=== PATIENT | female | born 1955 | race African-American/Black ===

== ENCOUNTER 2018-12-10 10:54 | Emergency (ER) | payer MEDICARE, MEDICAID ==
[~2018-12-10] VITALS: Ht 162.6 cm; Wt 79.8 kg
--- NOTE | 2018-12-10 10:56 | ED Abdominal Pain ---
General Stated Complaint: NAUSEA & VOMITING History of Present Illness Date Seen by Provider: Dec 10, 2018 Time Seen by Provider: 11:00 Initial Comments 63 yo f n/v x five days, nonbloody after every po intake did have normal bm yesterday not passing much flatus s/p joshuay stacy and joya describes intermittnet epigastric pain cramping in nature, happens before she throws up and then gets a little better no chest pain symptoms moderate no sick contacts. meds k, mg, lisinopril, hctz pmh htn, hypok, hypomag Allergies and Home Medications Allergies Coded Allergies: codeine (Verified Allergy, Intermediate, itching, nausea and vomiting., ) morphine (Verified Allergy, Intermediate, itching, nausea and vomiting, ) Uncoded Allergies: SULFA (Allergy, Intermediate, itching, nausea and vomiting, 12/10/18) Patient Home Medication List Home Medication List Reviewed: Yes Review of Systems Review of Systems Constitutional: No fever Cardiovascular: Denies Chest Pain Gastrointestinal: Abdominal Pain, Constipated; Denies Diarrhea; Poor Fluid Intake All Other Systems Reviewed Negative Unless Noted: Yes Past Cnkpqle-Svowxe-Fnyyud Hx Past Med/Social Hx: Reviewed Nursing Past Med/Soc Hx Physical Exam Vital Signs Vital Signs - First Documented 12/10/18 11:14 Temp 96.9 Pulse 95 Resp 18 B/P (MAP) 143/89 (107) Pulse Ox 96 O2 Delivery Room Air Capillary Refill : Height/Weight/BMI Height: '" Weight: lbs. oz. kg; BMI Method: General Appearance: WD/WN HEENT: PERRL/EOMI, normal ENT inspection, TMs normal, pharynx normal Neck: non-tender, full range of motion, supple, normal inspection Respiratory: chest non-tender, lungs clear, normal breath sounds, no respiratory distress, no accessory muscle use Cardiovascular: normal peripheral pulses, regular rate, rhythm, no edema, no gallop, no JVD, no murmur Gastrointestinal: soft, no organomegaly, no pulsatile mass, other (mild epigastric ttp noted. no lower quadrant. no peritoneal signs) Extremities: No calf tenderness, No inflammation, No pedal edema, No slow capillary refill, No swelling, No other Pelvic: discharge Neurologic/Psychiatric: no motor/sensory deficits, alert, normal mood/affect, oriented x 3 Skin: normal color, warm/dry Progress/Results/Core Measures Results/Orders Lab Results Laboratory Tests Test 12/10/18 11:00 12/10/18 11:40 Range/Units Urine Color DK YELLOW Urine Clarity SLIGHTLY CLOUDY Urine pH 5.5 5-9 Urine Specific [place] >=1.030 1.016-1.022 Urine Protein TRACE H NEGATIVE Urine Glucose (UA) NEGATIVE NEGATIVE Urine Ketones NEGATIVE NEGATIVE Urine Nitrite NEGATIVE NEGATIVE Urine Bilirubin 1+ H NEGATIVE Urine Urobilinogen 0.2 NORMAL MG/DL Urine Leukocyte Esterase 1+ H NEGATIVE Urine RBC (Auto) NEGATIVE NEGATIVE Urine RBC 5-10 H /HPF Urine WBC >100 H /HPF Urine Squamous Epithelial Cells 5-10 /HPF Urine Crystals NONE /LPF Urine Bacteria FEW H /HPF Urine Casts NONE /LPF Urine Mucus LARGE H /LPF Urine Culture Indicated YES White Blood Count 10.3 4.3-11.0 10^3/uL Red Blood Count 5.75 4.35-5.85 10^6/uL Hemoglobin 16.1 H 11.5-16.0 G/DL Hematocrit 50 35-52 % Mean Corpuscular Volume 87 80-99 FL Mean Corpuscular Hemoglobin 28 25-34 PG Mean Corpuscular Hemoglobin Concent 32 32-36 G/DL Red Cell Distribution Width 14.6 H 10.0-14.5 % Platelet Count 288 130-400 10^3/uL Mean Platelet Volume 10.6 H 7.4-10.4 FL Neutrophils (%) (Auto) 70 42-75 % Lymphocytes (%) (Auto) 23 12-44 % Monocytes (%) (Auto) 6 0-12 % Eosinophils (%) (Auto) 1 0-10 % Basophils (%) (Auto) 0 0-10 % Neutrophils # (Auto) 7.2 1.8-7.8 X 10^3 Lymphocytes # (Auto) 2.4 1.0-4.0 X 10^3 Monocytes # (Auto) 0.6 0.0-1.0 X 10^3 Eosinophils # (Auto) 0.1 0.0-0.3 10^3/uL Basophils # (Auto) 0.0 0.0-0.1 10^3/uL Sodium Level 139 135-145 MMOL/L Potassium Level 3.7 3.6-5.0 MMOL/L Chloride Level 99 98-107 MMOL/L Carbon Dioxide Level 25 21-32 MMOL/L Anion Gap 15 H 5-14 MMOL/L Blood Urea Nitrogen 10 7-18 MG/DL Creatinine 1.11 0.60-1.30 MG/DL Estimat Glomerular Filtration Rate 60 BUN/Creatinine Ratio 9 Glucose Level 121 H 70-105 MG/DL Calcium Level 9.9 8.5-10.1 MG/DL Corrected Calcium 9.6 8.5-10.1 MG/DL Magnesium Level 2.0 1.8-2.4 MG/DL Total Bilirubin 0.5 0.1-1.0 MG/DL Aspartate Amino Transf (AST/SGOT) 25 5-34 U/L Alanine Aminotransferase (ALT/SGPT) 20 0-55 U/L Alkaline Phosphatase 121 40-136 U/L Troponin T 9 <=10 NG/L Total Protein 8.9 H 6.4-8.2 GM/DL Albumin 4.4 3.2-4.5 GM/DL Lipase 12 8-78 U/L My Orders Orders - SONNY SALDANA MD Comprehensive Metabolic Panel (12/10/18 11:18) Lipase (12/10/18 11:18) Ua Culture If Indicated (12/10/18 11:18) Saline Lock/Iv-Start (12/10/18 11:18) Cbc With Automated Diff (12/10/18 11:18) Ns Iv 1000 Ml (Sodium Chloride 0.9%) (12/10/18 11:30) Ondansetron Injection (Zofran Injectio (12/10/18 11:30) Fentanyl Injection (Sublimaze Injection (12/10/18 11:18) Ekg Tracing (12/10/18 11:18) Magnesium (12/10/18 11:23) Troponin T (12/10/18 12:04) Ct Abdomen/Pelvis W (12/10/18 12:34) Urine Culture (12/10/18 11:00) Ceftriaxone For Iv Use (Rocephin For I (12/10/18 13:00) Iohexol Injection (Omnipaque 350 Mg/Ml 1 (12/10/18 13:00) Received Contrast (Hold Metformin- Contr (12/10/18 13:00) Sodium Chloride Flush (Catheter Flush Sy (12/10/18 13:00) Ns (Ivpb) (Sodium Chloride 0.9% Ivpb Bag (12/10/18 13:00) Medications Given in ED Current Medications Medications Dose Ordered Sig/Kalyn Route Start Time Stop Time Status Last Admin Dose Admin Ceftriaxone Sodium 1000 mg/ Sterile Water 10 ml @ 200 mls/hr ONCE ONCE IV 12/10/18 13:00 12/10/18 13:29 DC 12/10/18 13:40 200 MLS/HR Iohexol 100 ml ONCE ONCE IV 12/10/18 13:00 12/10/18 13:28 DC 12/10/18 13:10 100 ML Ondansetron HCl 4 mg ONCE ONCE IVP 12/10/18 11:30 12/10/18 11:31 DC 12/10/18 11:49 4 MG Sodium Chloride 10 ml NEEDED PRN IV 12/10/18 13:00 12/10/18 13:10 10 ML Sodium Chloride 50 ml ONCE ONCE IV 12/10/18 13:00 12/10/18 13:29 DC 12/10/18 13:10 50 ML Vital Signs/I&O 12/10/18 11:14 Temp 96.9 Pulse 95 Resp 18 B/P (MAP) 143/89 (107) Pulse Ox 96 O2 Delivery Room Air Progress Progress Note : Progress Note 63 yo f s/p appy, stacy, hyst, p/w 4-5 days of vomiting and crampy abdo pain. no diarrhea. mild to moderate ttp. could be gastritis but given surgical hx and age, will get ct a/p r/o sbo ekg/trop neg for ischemia, labs otherwise look pretty good so far. u/a shows uti, ctx and keflex pt better after symptomatic er tx appears approp for outpt mgmt advised f/u pmd for lymph node findings Initial ECG Impression Date: Dec 10, 2018 Initial ECG Impression Time: 11:55 Initial ECG Rhythm: Normal Sinus Initial ECG Intervals: Normal Initial ECG Impression: Nonspecific Changes Departure Impression Primary Impression: Urinary tract infection Disposition: 01 HOME, SELF-CARE Condition: Stable Departure-Patient Inst. Patient Instructions: Urinary Tract Infection, Adult (DC) Add. Discharge Instructions: A lymph node adjacent to the pancreatic neck measures approximately 2.4 x 1.3 cm. Portacaval node measures 1.4 x 3.2 cm. There are additional smaller lymph nodes present in this region and this is indeterminate. the above is the ct scan. please see primary doctor for consideration of pet scan and/or repeat ct scan in 6 weeks. Scripts Ondansetron (Ondansetron Odt) 4 Mg Tab.rapdis 4 MG PO QID PRN for NAUSEA/VOMITING, #10 TAB Prov: SONNY SALDANA MD 12/10/18 Cephalexin (Cephalexin) 500 Mg Tablet 500 MG PO QID, #40 TAB 0 Refills Prov: SONNY SALDANA MD 12/10/18 SONNY SALDANA MD Dec 10, 2018 10:56
[2018-12-10] MEDS ORDERED: fentaNYL INJECTION 100 MCG/2 ML AMP IVP STA (11:18)
[2018-12-10] MEDS ORDERED: NS IV 1000 ML 1,000 ML IV SCH (11:30)
[2018-12-10] MEDS ORDERED: ONDANSETRON 4 MG/2 ML (SDV) Z0FRAN IVP ONE (11:30)
[2018-12-10 12:29] LABS: POTASSIUM 3.7 MMOL/L (3.6-5.0)
[2018-12-10 12:30] LABS: ALBUMIN 4.4 GM/DL (3.2-4.5); BILIRUBIN,TOTAL 0.5 MG/DL (0.1-1.0); CALCIUM 9.9 MG/DL (8.5-10.1); CREATININE SERUM 1.11 MG/DL (0.60-1.30); TOTAL PROTEIN 8.9 GM/DL (6.4-8.2)
[2018-12-10 12:32] LABS: HEMATOCRIT 50 % (35-52); HEMOGLOBIN 16.1 G/DL (11.5-16.0); LYMPHOCYTES % (AUTO) 23 % (12-44); MEAN CORPUSCULAR HEMOGLOBIN 28 PG (25-34); MEAN CORPUSCULAR HGB CONC 32 G/DL (32-36); MEAN CORPUSCULAR VOLUME 87 FL (80-99); MEAN PLATELET VOLUME 10.6 FL (7.4-10.4); MONOCYTES % (AUTO) 6 % (0-12); NEUTROPHILS % (AUTO) 70 % (42-75); PLATELET COUNT 288 10^3/uL (130-400); RED CELL DISTRIBUTION WIDTH 14.6 % (10.0-14.5); WHITE BLOOD COUNT 10.3 10^3/uL (4.3-11.0)
[2018-12-10 12:33] LABS: BASOPHILS % (AUTO) 0 % (0-10); EOSINOPHILS # (AUTO) 0.1 10^3/uL (0.0-0.3); EOSINOPHILS % (AUTO) 1 % (0-10); LYMPHOCYTES # (AUTO) 2.4 X 10^3 (1.0-4.0); MONOCYTES # (AUTO) 0.6 X 10^3 (0.0-1.0); NEUTROPHILS # (AUTO) 7.2 X 10^3 (1.8-7.8)
[2018-12-10 12:34] LABS: CLARITY,URINE SLIGHTLY CLOUDY; COLOR,URINE DK YELLOW; GLUCOSE, URINE (UA) NEGATIVE (NEGATIVE); PH,URINE 5.5 (5-9); PROTEIN,URINE TRACE (NEGATIVE)
[2018-12-10 12:35] LABS: BACTERIA,URINE FEW /HPF; BILIRUBIN,URINE 1+ (NEGATIVE); KETONES,URINE NEGATIVE (NEGATIVE); LEUKOCYTE ESTERASE ,URINE 1+ (NEGATIVE); NITRITE,URINE NEGATIVE (NEGATIVE); UROBILINOGEN,URINE 0.2 MG/DL (NORMAL); WBC,URINE >100 /HPF
[2018-12-10] MEDS ORDERED: CATHETER FLUSH 10 ML SYR IV PRN (13:00)
[2018-12-10] MEDS ORDERED: NS 50 ML (IVPB) BAG IV ONE (13:00)
[2018-12-10] MEDS ORDERED: IOHEXOL 350 MG/ML 100 ML (OMNIPAQUE 350) VIAL IV ONE (13:00)
[2018-12-10] MEDS ORDERED: cefTRIAXone FOR IV USE 1,000 MG in WATER (STERILE) FOR INJECTION 10 ML IV ONE (13:00)
[2018-12-10] MEDS ORDERED: HOLD METFORMIN - RECEIVED CONTRAST 20 ML VIAL IV SCH (13:00)
--- NOTE | 2018-12-10 13:42 | Diagnostic Imaging Report ---
PROCEDURE: CT abdomen and pelvis with contrast. TECHNIQUE: Multiple contiguous axial images were obtained through the abdomen and pelvis after administration of intravenous contrast. Auto Exposure Controls were utilized during the CT exam to meet ALARA standards for radiation dose reduction. INDICATION: Transabdominal pain for four days. COMPARISON: No prior studies are available for comparison. FINDINGS: The lung bases are clear. The liver demonstrates a mild generalized low density consistent with hepatic steatosis. No discrete liver mass is identified. The gallbladder is surgically absent. No biliary ductal dilatation is seen. The pancreas and spleen are unremarkable. No adrenal mass is detected. Kidneys contain tiny cortical low densities, too small to characterize but most likely cysts. The aorta does show a moderate amount of atherosclerotic changes. In addition, there is some ectasia to the aorta but no aneurysm is seen. No central retroperitoneal or mesenteric lymphadenopathy is identified. However, there do appear to be some prominent lymph nodes in the region of the nate hepatis and portacaval region. A lymph node adjacent to the pancreatic neck measures approximately 2.4 x 1.3 cm. Portacaval node measures 1.4 x 3.2 cm. There are additional smaller lymph nodes present in this region and this is indeterminate. The small and large bowel loops are normal caliber. No obstruction is seen. There is no ascites. No inflammatory process is detected. The bladder is unremarkable. Uterus appears to be surgically absent. No pelvic lymphadenopathy is identified. IMPRESSION: 1. Mild hepatic steatosis. 2. There appears to be nate hepatis and portacaval lymphadenopathy, etiology indeterminate. No other significant abnormality is seen. PET scan may be useful for further evaluation to evaluate for hypermetabolism. Dictated by: Dictated on workstation # [id number]
[2018-12-10] MEDS ORDERED: ONDA4TAB11 PO (14:47)
[2018-12-10] MEDS ORDERED: CEPH500T PO (14:47)
[2018-12-10 15:03] VITALS: BP 143/76
== END 2018-12-10 15:09 | disposition home or self-care (01) ==
LOC: ER FS 10:57
DX: N39.0 Urinary tract infection, site not specified (principal); Z88.5 Allergy status to narcotic agent; Z88.2 Allergy status to sulfonamides
CPT/HCPCS: 36415; 74177; 80053; 81000; 83690; 83735; 84484; 85025; 87088

== ENCOUNTER 2019-01-01 10:44 | Emergency (ER) | payer MEDICARE, MEDICAID ==
[~2019-01-01] VITALS: Ht 162.6 cm; Wt 81.6 kg
[~2019-01-01 10:44] MED LIST: CEPH500T PO; ONDA4TAB11 PO
--- OUTSIDE RECORDS SUMMARY | 2019-01-01 11:14 | XMS REPORT ---
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 January, 0 250375908 Problem Essential hypertension I10 Active 23177894 Problem Adhesive capsulitis of right shoulder M75.01 Sep, 0 [id number] Problem Intractable migraine without aura and without status migrainosus G43.019 Active 689764926 Problem Pure hypercholesterolemia E78.00 Active 323124586 Problem Type 2 diabetes mellitus without complication, without long-term current use of insulin E11.9 Active 951394543 ALLERGIES No Information ENCOUNTERS Encounter Location Date Diagnosis [address] [address] Nov, Acute cystitis without hematuria N30.[address] [address] Nov, [facility] [address] [place] [address] Nov, Nausea & vomiting R11.[address] [address] Nov, [facility] [place] [address] [facility] [id number] [address] Oct, Essential hypertension I10 [facility] [address] [address] 15 Oct, 2018 Essential hypertension I10 and Type 2 diabetes mellitus without complication, without long-term current use of insulin E11.[address] [address] 14 Oct, 2018 Impingement syndrome of right shoulder M75.41 ; Essential hypertension I10 ; Pure hypercholesterolemia E78.00 ; Type 2 diabetes mellitus without complication, without long-term current use of insulin E11.9 and Chronic hepatitis C without hepatic coma B18.2 [place] [address] [address] Oct, 2018 [facility] [address] [place] [address] 04 Oct, 2018 Intractable migraine without aura and without status migrainosus G43.019 [place] [address] [address] Sep, [facility], [place] [address] [address] Aug, [facility], [place] [address] [place] [id number] [place] [address] Aug, [facility] [place] [address] [place] [id number] [place] [address] Aug, [facility], [place] [address] [address] Jul, IMMUNIZATIONS No Known Immunizations SOCIAL HISTORY Never Assessed REASON FOR VISIT Medication refill PLAN OF CARE VITAL SIGNS MEDICATIONS Medication Instructions Dosage Frequency Start Date End Date Duration Status Fluticasone Propionate 50 MCG/ACT Nasally Once a day 1 spray in each nostril 24h Nov, 30 day(s) Active RESULTS No Results PROCEDURES No Known procedures INSTRUCTIONS MEDICATIONS ADMINISTERED No Known Medications MEDICAL (GENERAL) HISTORY Type Description Date Medical History Hypokalemia Medical History Hypomagnesemia Medical History Hypertension Medical History Hepatitis C Medical History Type 2 diabetes mellitus Surgical History Hysterectomy Surgical History Left Arm Surgery Surgical History Lap Dawn Surgical History Lap Appy Surgical History Bilat Knee Surgery Hospitalization History surgeries
--- OUTSIDE RECORDS SUMMARY | 2019-01-01 11:14 | XMS REPORT ---
Author Author ALFREDO LEON Organization [facility] Address [address] [place] [address] Care Team Providers Care Group Supervisor Yard Name Role Phone ALFREDO LEON Unavailable PROBLEMS Type Condition ICD9-CM Code DME87-OG Code Onset Dates Condition Status SNOMED Code Problem Chronic hepatitis C without hepatic coma B18.2 Active 329671377 Problem Essential hypertension I10 Active 13422539 Problem Intractable migraine without aura and without status migrainosus G43.019 Active 425927883 Problem Pure hypercholesterolemia E78.00 Active 709710986 Problem Type 2 diabetes mellitus without complication, without long-term current use of insulin E11.9 Active 081050774 ALLERGIES Substance Reaction Event Type Date Status Morphine Sulfate itching Drug Allergy Oct, Active Codeine Phosphate itching Drug Allergy Oct, Active ENCOUNTERS Encounter Location Date Diagnosis [address] [address] Oct, Essential hypertension I10 and Type 2 diabetes mellitus without complication, without long-term current use of insulin E11.[address] [address] Oct, Impingement syndrome of right shoulder M75.41 ; Essential hypertension I10 ; Pure hypercholesterolemia E78.00 ; Type 2 diabetes mellitus without complication, without long-term current use of insulin E11.9 and Chronic hepatitis C without hepatic coma B18.2 [facility] [address] [facility] [place] [address] Oct, Intractable migraine without aura and without status migrainosus G43.019 IMMUNIZATIONS No Known Immunizations SOCIAL HISTORY Never Assessed REASON FOR VISIT Pain management (chronic) - Right Shoulder Pain (x3-4Months) PLAN OF CARE Activity Details Follow Up 3 Months Reason:Follow up with lab prior VITAL SIGNS Height 5ft 4in in 2018-11-01 Weight 197.2lb lbs 2018-11-01 BMI 33.85 kg/m2 2018-11-01 Blood pressure systolic 156 mmHg 2018-11-01 Blood pressure diastolic 100 mmHg 2018-11-01 MEDICATIONS Medication Instructions Dosage Frequency Start Date End Date Duration Status Naproxen 500 MG Orally every 12 hrs 1 tablet with food or milk as needed 12h Active Chlorthalidone 25 MG Orally Once a day 1 tablet in the morning with food 24h 30 day(s) Active Klor-Con M20 20 MEQ Orally Once a day 1 tablet with food 24h 30 day(s ) Active Albuterol Sulfate HFA 108 (90 Base) MCG/ACT Inhalation every 6 hrs 2 puffs as needed 6h Active Lisinopril 20 MG Orally Once a day 1 tablet 24h Oct, 30 days Active Effexor XR 150 MG Orally Once a day 1 capsule with food 24h 30 day(s ) Active Plavix 75 MG Orally Once a day 1 tablet 24h 30 day(s) Active Fenofibrate 160 MG Orally Once a day 1 tablet with food 24h 30 day(s ) Active PredniSONE 10 MG Orally Once a day 1 tablet 24h Oct, 6 days Active Magnesium Oxide 400 MG Orally Once a day 1 tablet as needed 24h 30 day(s) Active RESULTS No Results PROCEDURES Procedure Date Ordered Result Body Site [facility] VISIT NEW PATIENT Nov 01, 2018 INSTRUCTIONS MEDICATIONS ADMINISTERED No Known Medications MEDICAL (GENERAL) HISTORY Type Description Date Medical History Hypokalemia Medical History Hypomagnesemia Medical History Hypertension Medical History Hepatitis C Medical History Type 2 diabetes mellitus Surgical History Hysterectomy Surgical History Left Arm Surgery Surgical History Lap Dawn Surgical History Lap Appy Surgical History Bilat Knee Surgery Hospitalization History surgeries
[2019-01-01] MEDS ORDERED: FAMOTIDINE 20MG/2ML IV (PEPCID) IVP ONE (12:30)
[2019-01-01] MEDS ORDERED: ONDANSETRON 4 MG/2 ML (SDV) Z0FRAN IVP ONE (12:30)
[2019-01-01] MEDS ORDERED: NS IV 1000 ML 1,000 ML IV SCH (12:30)
[2019-01-01] MEDS ORDERED: fentaNYL INJECTION 100 MCG/2 ML AMP IVP ONE (12:30)
--- NOTE | 2019-01-01 13:25 | ED Abdominal Pain ---
General Chief Complaint: Abdominal/GI Problems Stated Complaint: VOMITING Nursing Triage Note: Has been vomiting for the past 4 days. No diarrhea but is having some abdominal pain rated at 4/10. States she has been having intermittent nausea/vomiting for the past month and was in the ED a month ago for the same thing. Sepsis Screen: No Definite Risk Source of Information: Patient History of Present Illness Date Seen by Provider: Jan 01, 2019 Time Seen by Provider: 12:00 Initial Comments Patient is a 63-year-old [place]eg[place]e female with history of chronic abdominal pain and nausea presents with exacerbation of chronic abdominal pain. Patient reports diffuse midepigastric pain, tenderness as 4 days with nausea and decreased appetite. Denies diarrhea. Pain is described as crampy and colicky in worse after eating. No fever chills or sweats. No bloody or coffee-ground emesis. No constipation or diarrhea. Denies bloody stools or dark tarry stools. Patient reports minimal relief with home medications. Timing/Duration: 3-4 Days Severity/Quality: Mild Location: Epigastric Radiation: No Radiation Activities at Onset: None Modifying Factors: Improves With Vomiting Associated Symptoms: Denies Symptoms Allergies and Home Medications Allergies Coded Allergies: codeine (Verified Allergy, Intermediate, itching, nausea and vomiting., ) morphine (Verified Allergy, Intermediate, itching, nausea and vomiting, ) Sulfa (Sulfonamide Antibiotics) (Verified Allergy, Unknown, 01/01/19) Home Medications Cephalexin 500 Mg Tablet, 500 MG PO QID Prescribed by: SONNY SALDANA on 12/10/18 1447 Ondansetron 4 Mg Tab.rapdis, 4 MG PO QID PRN for NAUSEA/VOMITING Prescribed by: SONNY SALDANA on 12/10/18 1447 Patient Home Medication List Home Medication List Reviewed: Yes Review of Systems Review of Systems Constitutional: see HPI EENTM: See HPI Respiratory: No Symptoms Reported, See HPI Cardiovascular: No Symptoms Reported Gastrointestinal: See HPI Genitourinary: No Symptoms Reported Musculoskeletal: no symptoms reported Skin: no symptoms reported Psychiatric/Neurological: No Symptoms Reported Past Ywvvxdb-Gnsgkf-Txpsnq Hx Patient Social History Type Used: Cigarettes 2nd Hand Smoke Exposure: Yes Recent Foreign Travel: No Contact w/Someone Who Travel: No Recent Infectious Disease Expo: No Recent Hopitalizations: No Seasonal Allergies Seasonal Allergies: No Past Medical History Surgeries: Yes (knee arth bilat, right shoulder) Appendectomy, Gallbladder, Hysterectomy Respiratory: No Cardiac: Yes (low potassium, low magnesium) Hypertension Genitourinary: No Gastrointestinal: No Musculoskeletal: No Endocrine: No HEENT: No Cancer: No Psychosocial: No Integumentary: No Blood Disorders: No Physical Exam Vital Signs Vital Signs - First Documented 01/01/19 11:10 Temp 97.9 Pulse 93 Resp 20 B/P (MAP) 109/59 (76) Pulse Ox 93 Capillary Refill : Less Than 3 Seconds Height/Weight/BMI Height: 5'4.00" Weight: 180lbs. oz. 81.886637uf; BMI Method:Stated General Appearance: WD/WN, no apparent distress HEENT: PERRL/EOMI, normal ENT inspection, pharynx normal Neck: full range of motion, supple Respiratory: chest non-tender, lungs clear Cardiovascular: normal peripheral pulses, regular rate, rhythm Gastrointestinal: normal bowel sounds, soft, other (midepigastric pain, tenderness.) Extremities: normal range of motion, non-tender Back: normal inspection Skin: normal color Focused Exam Sepsis Stage: Ruled Out Progress/Results/Core Measures Results/Orders Lab Results Laboratory Tests Test 01/01/19 12:01 01/01/19 12:47 Range/Units White Blood Count 11.2 H 4.3-11.0 10^3/uL Red Blood Count 5.33 4.35-5.85 10^6/uL Hemoglobin 15.5 11.5-16.0 G/DL Hematocrit 45 35-52 % Mean Corpuscular Volume 85 80-99 FL Mean Corpuscular Hemoglobin 29 25-34 PG Mean Corpuscular Hemoglobin Concent 34 32-36 G/DL Red Cell Distribution Width 14.7 H 10.0-14.5 % Platelet Count 317 130-400 10^3/uL Mean Platelet Volume 11.3 H 7.4-10.4 FL Neutrophils (%) (Auto) 71 42-75 % Lymphocytes (%) (Auto) 20 12-44 % Monocytes (%) (Auto) 8 0-12 % Eosinophils (%) (Auto) 1 0-10 % Basophils (%) (Auto) 0 0-10 % Neutrophils # (Auto) 7.8 1.8-7.8 X 10^3 Lymphocytes # (Auto) 2.3 1.0-4.0 X 10^3 Monocytes # (Auto) 0.9 0.0-1.0 X 10^3 Eosinophils # (Auto) 0.1 0.0-0.3 10^3/uL Basophils # (Auto) 0.0 0.0-0.1 10^3/uL Sodium Level 140 135-145 MMOL/L Potassium Level 2.7 L 3.6-5.0 MMOL/L Chloride Level 95 L 98-107 MMOL/L Carbon Dioxide Level 25 21-32 MMOL/L Anion Gap 20 H 5-14 MMOL/L Blood Urea Nitrogen 15 7-18 MG/DL Creatinine 0.94 0.60-1.30 MG/DL Estimat Glomerular Filtration Rate > 60 BUN/Creatinine Ratio 16 Glucose Level 129 H 70-105 MG/DL Calcium Level 9.7 8.5-10.1 MG/DL Corrected Calcium 9.6 8.5-10.1 MG/DL Total Bilirubin 0.5 0.1-1.0 MG/DL Aspartate Amino Transf (AST/SGOT) 29 5-34 U/L Alanine Aminotransferase (ALT/SGPT) 19 0-55 U/L Alkaline Phosphatase 112 40-136 U/L Troponin T 10 <=10 NG/L Total Protein 8.5 H 6.4-8.2 GM/DL Albumin 4.1 3.2-4.5 GM/DL Lipase 12 8-78 U/L Urine Color KYLE H Urine Clarity CLEAR Urine pH 6.0 5-9 Urine Specific [place] 1.025 H 1.016-1.022 Urine Protein 1+ H NEGATIVE Urine Glucose (UA) NEGATIVE NEGATIVE Urine Ketones TRACE H NEGATIVE Urine Nitrite NEGATIVE NEGATIVE Urine Bilirubin 2+ H NEGATIVE Urine Urobilinogen 1.0 NORMAL MG/DL Urine Leukocyte Esterase NEGATIVE NEGATIVE Urine RBC (Auto) NEGATIVE NEGATIVE Urine RBC NONE /HPF Urine WBC 2-5 /HPF Urine Squamous Epithelial Cells 2-5 /HPF Urine Crystals NONE /LPF Urine Bacteria NEGATIVE /HPF Urine Casts PRESENT /LPF Urine Hyaline Casts 10-25 H /LPF Urine Granular Casts /LPF Urine Coarse Granular Casts RARE H /LPF Urine White Blood Cell Casts RARE H /LPF Urine Mucus LARGE H /LPF Urine Culture Indicated NO My Orders Orders - PAUL NATHAN DO Cbc With Automated Diff (01/01/19 12:25) Comprehensive Metabolic Panel (01/01/19 12:25) Lipase (01/01/19 12:25) Troponin T (01/01/19 12:25) Ua Culture If Indicated (01/01/19 12:25) Ondansetron Injection (Zofran Injectio (01/01/19 12:30) Ns Iv 1000 Ml (Sodium Chloride 0.9%) (01/01/19 12:30) Fentanyl Injection (Sublimaze Injection (01/01/19 12:30) Famotidine Injection (Pepcid Injection) (01/01/19 12:30) Potassium Chloride (Tablet) (K Dur Table (01/01/19 14:15) Medications Given in ED Current Medications Medications Dose Ordered Sig/Kalyn Route Start Time Stop Time Status Last Admin Dose Admin Famotidine 20 mg ONCE ONCE IVP 01/01/19 12:30 01/01/19 12:31 DC 01/01/19 12:37 20 MG Fentanyl Citrate 50 mcg ONCE ONCE IVP 01/01/19 12:30 01/01/19 12:31 DC 01/01/19 12:38 50 MCG Ondansetron HCl 4 mg ONCE ONCE IVP 01/01/19 12:30 01/01/19 12:31 DC 01/01/19 12:37 4 MG Vital Signs/I&O 01/01/19 11:10 Temp 97.9 Pulse 93 Resp 20 B/P (MAP) 109/59 (76) Pulse Ox 93 Blood Pressure Mean: 76 Departure Communication (Admissions) Symptoms significantly improved with treatment. Potassium replaced. Patient requesting to eat and go home. Recommended continued supportive care. Pseudomonal Risk: No known risk Impression Primary Impression: Nausea and vomiting Additional Impressions: Abdominal pain Hypokalemia Disposition: HOME, SELF-CARE Condition: Improved Departure-Patient Inst. Referrals: ALFREDO LEON MD (PCP/Family) Primary Care Physician Patient Instructions: Hypokalemia, Acute Abdomen (Belly Pain), Adult (DC), Nausea and Vomiting, Adult (DC) Add. Discharge Instructions: Please take newly prescribed nausea medication antiacids and potassium as directed. Follow-up with your PCP in 3-5 days for reevaluation All discharge instructions reviewed with patient and/or family. Voiced understanding. Scripts Promethazine HCl (Promethazine Tablet) 25 Mg Tablet 25 MG PO Q6H PRN for NAUSEA/VOMITING, #14 TAB Prov: PAUL NATHAN DO 01/01/19 Potassium Chloride (Potassium Chloride) 20 Meq Tablet.er 20 MEQ PO BID, #14 TAB Prov: PAUL NATHAN DO 01/01/19 Famotidine (Pepcid) 20 Mg Tablet 20 MG PO BID, #30 TAB Prov: PAUL NATHAN DO 01/01/19 PAUL NATHAN DO Jan 01, 2019 13:25
[2019-01-01 13:29] LABS: ALANINE AMINOTRANSFERASE 19 U/L (0-55); ALBUMIN 4.1 GM/DL (3.2-4.5); ALKALINE PHOSPHATASE 112 U/L (40-136); BILIRUBIN,TOTAL 0.5 MG/DL (0.1-1.0); BUN/CREATININE RATIO 16; CALCIUM 9.7 MG/DL (8.5-10.1); CARBON DIOXIDE 25 MMOL/L (21-32); CHLORIDE 95 MMOL/L (98-107); CREATININE SERUM 0.94 MG/DL (0.60-1.30); GFR ESTIMATED > 60; GLUCOSE 129 MG/DL (70-105); LIPASE 12 U/L (8-78); POTASSIUM 2.7 MMOL/L (3.6-5.0); SODIUM 140 MMOL/L (135-145); TOTAL PROTEIN 8.5 GM/DL (6.4-8.2)
[2019-01-01 13:37] LABS: CLARITY,URINE CLEAR; COLOR,URINE AMBER
[2019-01-01 13:38] LABS: BILIRUBIN,URINE 2+ (NEGATIVE); GLUCOSE, URINE (UA) NEGATIVE (NEGATIVE); KETONES,URINE TRACE (NEGATIVE); LEUKOCYTE ESTERASE ,URINE NEGATIVE (NEGATIVE); NITRITE,URINE NEGATIVE (NEGATIVE); PROTEIN,URINE 1+ (NEGATIVE)
[2019-01-01 13:39] LABS: BACTERIA,URINE NEGATIVE /HPF
[2019-01-01 13:40] LABS: WHITE BLOOD CELL CASTS, URINE RARE /LPF
[2019-01-01 13:42] LABS: WHITE BLOOD COUNT 11.2 10^3/uL (4.3-11.0)
[2019-01-01 13:43] LABS: BASOPHILS % (AUTO) 0 % (0-10); EOSINOPHILS # (AUTO) 0.1 10^3/uL (0.0-0.3); EOSINOPHILS % (AUTO) 1 % (0-10); HEMATOCRIT 45 % (35-52); HEMOGLOBIN 15.5 G/DL (11.5-16.0); LYMPHOCYTES # (AUTO) 2.3 X 10^3 (1.0-4.0); LYMPHOCYTES % (AUTO) 20 % (12-44); MEAN CORPUSCULAR HEMOGLOBIN 29 PG (25-34); MEAN CORPUSCULAR HGB CONC 34 G/DL (32-36); MEAN CORPUSCULAR VOLUME 85 FL (80-99); MEAN PLATELET VOLUME 11.3 FL (7.4-10.4); MONOCYTES # (AUTO) 0.9 X 10^3 (0.0-1.0); MONOCYTES % (AUTO) 8 % (0-12); NEUTROPHILS # (AUTO) 7.8 X 10^3 (1.8-7.8); NEUTROPHILS % (AUTO) 71 % (42-75); PLATELET COUNT 317 10^3/uL (130-400); RED CELL DISTRIBUTION WIDTH 14.7 % (10.0-14.5)
[2019-01-01] MEDS ORDERED: PROM25TA14 PO (14:08)
[2019-01-01] MEDS ORDERED: POTA-51 PO (14:08)
[2019-01-01] MEDS ORDERED: FAMO-119 PO (14:08)
[2019-01-01] MEDS ORDERED: KCL 20 MEQ TAB (K-DUR) PO ONE (14:15)
[2019-01-01 14:21] VITALS: BP 119/74
== END 2019-01-01 14:22 | disposition home or self-care (01) ==
LOC: EDUNIT# 10:44 → ER FS 10:46
DX: R11.2 Nausea with vomiting, unspecified (principal); E87.6 Hypokalemia; R10.13 Epigastric pain; I10 Essential (primary) hypertension; Z88.5 Allergy status to narcotic agent; Z88.2 Allergy status to sulfonamides; Z77.22 Contact with and (suspected) exposure to environmental tobacco smoke (acute) (chronic); Z90.49 Acquired absence of other specified parts of digestive tract; Z90.710 Acquired absence of both cervix and uterus
CPT/HCPCS: 36415; 80053; 81000; 83690; 84484; 85025

== ENCOUNTER 2019-01-13 13:35 | Emergency (ER) | payer MEDICARE, MEDICAID ==
[~2019-01-13] VITALS: Ht 162.6 cm; Wt 81.6 kg
[~2019-01-13 13:35] MED LIST changes: +FAMO-119 PO; +POTA-51 PO; +PROM25TA14 PO
--- OUTSIDE RECORDS SUMMARY | 2019-01-13 13:40 | XMS REPORT | Continuity of Care Document ---
Author Organization Unknown Address Unknown Allergies There is no data. Medications There is no data. Problems There is no data. Procedures There is no data. Results Test Result Range [facility] - 01/10/19 11:25 GLUCOSE 114 mg/dL 65-139 UREA NITROGEN (BUN) 12 mg/dL 7-25 CREATININE 0.87 mg/dL 0.50-0.99 eGFR NON-AFR. SUDANESE 70 mL/min/1.73m2 > OR=60 eGFR 82 mL/min/1.73m2 > OR=60 BUN/CREATININE RATIO NOT APPLICABLE (calc) 6-22 SODIUM 140 mmol/L 135-146 POTASSIUM 4.1 mmol/L 3.5-5.3 CHLORIDE 103 mmol/L 98-110 CARBON DIOXIDE 23 mmol/L 20-32 CALCIUM 9.9 mg/dL 8.6-10.4 PROTEIN, TOTAL 8.3 g/dL 6.1-8.1 ALBUMIN 4.0 g/dL 3.6-5.1 GLOBULIN 4.3 g/dL (calc) 1.9-3.7 ALBUMIN/GLOBULIN RATIO 0.9 (calc) 1.0-2.5 BILIRUBIN, TOTAL 0.4 mg/dL 0.2-1.2 ALKALINE PHOSPHATASE 121 U/L 33-130 AST 32 U/L 10-35 ALT 26 U/L 6-29 Encounters ACCT No. Visit Date/Time Discharge Status Pt. Type Provider Facility Loc./Unit Complaint [id number] 01/10/2019 10:45:00 Document Registration [id number] 01/10/2019 10:45:00 [facility]
[2019-01-13 14:37] LABS: CLARITY,URINE SLIGHTLY CLOUDY; COLOR,URINE YELLOW; GLUCOSE, URINE (UA) NEGATIVE (NEGATIVE); KETONES,URINE NEGATIVE (NEGATIVE); NITRITE,URINE NEGATIVE (NEGATIVE); PH,URINE 6 (5-9); PROTEIN,URINE 2+ (NEGATIVE)
[2019-01-13 14:38] LABS: AMPHETAMINE SCREEN, URINE NEGATIVE (NEGATIVE); BACTERIA,URINE MODERATE /HPF; BARBITURATE SCREEN URINE NEGATIVE (NEGATIVE); BENZODIAZEPINES SCREEN URINE NEGATIVE (NEGATIVE); BILIRUBIN,URINE 1+ (NEGATIVE); CANNABINOID SCREEN, URINE NEGATIVE (NEGATIVE); COCAINE SCREEN URINE NEGATIVE (NEGATIVE); LEUKOCYTE ESTERASE ,URINE 2+ (NEGATIVE); METHADONE STAT NEGATIVE (NEGATIVE); METHAMPHETAMINE SCREEN URINE S NEGATIVE (NEGATIVE); OPIATE SCREEN URINE NEGATIVE (NEGATIVE); OXYCODONE STAT NEGATIVE (NEGATIVE); PROPOXYPHENE STAT NEGATIVE (NEGATIVE); RBC,URINE RARE /HPF; RENAL EPITHELIAL CELLS,URINE 0-2 /HPF; SQUAMOUS EPITHELIAL CELL,UR 0-2 /HPF; TRICYCLIC ANTIDEPRESSANTS SCRE NEGATIVE (NEGATIVE); UROBILINOGEN,URINE 1 MG/DL (NORMAL); WBC,URINE 25-50 /HPF
[2019-01-13 15:07] LABS: WHITE BLOOD COUNT 10.7 10^3/uL (4.3-11.0)
[2019-01-13 15:08] LABS: BASOPHILS % (AUTO) 0 % (0-10); EOSINOPHILS # (AUTO) 0.1 10^3/uL (0.0-0.3); EOSINOPHILS % (AUTO) 1 % (0-10); HEMATOCRIT 49 % (35-52); HEMOGLOBIN 16.2 G/DL (11.5-16.0); LYMPHOCYTES # (AUTO) 2.1 X 10^3 (1.0-4.0); LYMPHOCYTES % (AUTO) 20 % (12-44); MEAN CORPUSCULAR HEMOGLOBIN 28 PG (25-34); MEAN CORPUSCULAR HGB CONC 33 G/DL (32-36); MEAN CORPUSCULAR VOLUME 85 FL (80-99); MEAN PLATELET VOLUME 10.6 FL (7.4-10.4); MONOCYTES # (AUTO) 0.7 X 10^3 (0.0-1.0); MONOCYTES % (AUTO) 6 % (0-12); NEUTROPHILS # (AUTO) 7.8 X 10^3 (1.8-7.8); NEUTROPHILS % (AUTO) 73 % (42-75); PLATELET COUNT 224 10^3/uL (130-400); RED CELL DISTRIBUTION WIDTH 14.7 % (10.0-14.5)
[2019-01-13 15:31] LABS: BUN/CREATININE RATIO 13; CALCIUM 9.6 MG/DL (8.5-10.1); CARBON DIOXIDE 20 MMOL/L (21-32); CHLORIDE 102 MMOL/L (98-107); CREATININE SERUM 0.84 MG/DL (0.60-1.30); GFR ESTIMATED > 60; GLUCOSE 121 MG/DL (70-105); POTASSIUM 3.1 MMOL/L (3.6-5.0); SODIUM 141 MMOL/L (135-145)
[2019-01-13 15:32] LABS: ALANINE AMINOTRANSFERASE 27 U/L (0-55); ALKALINE PHOSPHATASE 137 U/L (40-136); BILIRUBIN,TOTAL 0.5 MG/DL (0.1-1.0); LIPASE 12 U/L (8-78); TOTAL PROTEIN 8.4 GM/DL (6.4-8.2)
--- NOTE | 2019-01-13 15:41 | ED Abdominal Pain ---
General Chief Complaint: Abdominal/GI Problems Stated Complaint: VOMITING,STOMACH PAIN Source of Information: Patient, Old Records, RN Notes Reviewed Exam Limitations: No Limitations History of Present Illness Date Seen by Provider: Jan 13, 2019 Time Seen by Provider: 14:20 Initial Comments Patient presents once again c/ c/o abdominal pain and N/V. Current episode has been going on x 2 days. Been seen here in recent past c/ similar complaints. States she tried to take her Phenergan, but threw it up. Her PCP has given her a referral to a surgeon in [place] for an EGD and colonoscopy, but she hasn't received the date yet. No known fever. Timing/Duration: 2-3 Days Severity/Quality: Moderate (7/10), Aching Location: Generalized Abdomen Radiation: No Radiation Activities at Onset: None Modifying Factors: Worsens With Eating Associated Symptoms: Nausea/Vomiting Allergies and Home Medications Allergies Coded Allergies: codeine (Verified Allergy, Intermediate, itching, nausea and vomiting., ) morphine (Verified Allergy, Intermediate, itching, nausea and vomiting, ) Sulfa (Sulfonamide Antibiotics) (Verified Allergy, Unknown, 01/01/19) Home Medications Cefuroxime Axetil 250 Mg Tablet, 250 MG PO BID Prescribed by: JASSI ARCINIEGA on 01/13/191648 Cephalexin 500 Mg Tablet, 500 MG PO QID Prescribed by: SONNY SALDANA on 12/10/18 1447 Famotidine 20 Mg Tablet, 20 MG PO BID Prescribed by: PAUL NATHAN on 01/01/19 1408 Metoclopramide HCl 5 Mg Tablet, 5 MG PO ACHS Prescribed by: JASSI ARCINIEGA on 01/13/19 1649 Ondansetron 4 Mg Tab.rapdis, 4 MG PO QID PRN for NAUSEA/VOMITING Prescribed by: SONNY SALDANA on 12/10/18 1447 Potassium Chloride 20 Meq Tablet.er, 20 MEQ PO BID Prescribed by: PAUL NATHAN on 01/01/19 1408 Promethazine HCl 25 Mg Tablet, 25 MG PO Q6H PRN for NAUSEA/VOMITING Prescribed by: PAUL NATHAN on 01/01/19 1408 Tramadol HCl 50 Mg Tablet, 50-100 MG PO Q6H PRN for ABDOMINAL PAIN Prescribed by: JASSI ARCINIEGA on 01/13/19 164 Patient Home Medication List Home Medication List Reviewed: Yes Review of Systems Review of Systems Constitutional: see HPI Gastrointestinal: See HPI, Abdominal Pain, Nausea, Vomiting All Other Systems Reviewed Negative Unless Noted: Yes (Negative excepted noted.) Past Lxziqzm-Nshxio-Wsztts Hx Patient Social History Type Used: Cigarettes 2nd Hand Smoke Exposure: Yes Recent Hopitalizations: No Seasonal Allergies Seasonal Allergies: No Past Medical History Surgeries: Yes (knee arth bilat, right shoulder; back) Appendectomy, Gallbladder, Hysterectomy, Orthopedic Respiratory: No Cardiac: Yes (low potassium, low magnesium) Hypertension Genitourinary: No Gastrointestinal: No Musculoskeletal: No Endocrine: Yes Diabetes, Non-Insulin dep HEENT: No Cancer: No Psychosocial: No Integumentary: No Blood Disorders: No Physical Exam Vital Signs Vital Signs - First Documented 01/13/19 13:40 Temp 98.2 Pulse 96 Resp 18 B/P (MAP) 144/71 (95) Pulse Ox 97 O2 Delivery Room Air Capillary Refill : Height/Weight/BMI Height: 5'4.00" Weight: 180lbs. oz. 81.582803yl; BMI Method:Stated General Appearance: WD/WN, no apparent distress Respiratory: no respiratory distress Cardiovascular: regular rate, rhythm Gastrointestinal: soft; No guarding, No rebound; tenderness (diffuse) Rectal: deferred Neurologic/Psychiatric: no motor/sensory deficits, alert, oriented x 3, depressed affect Skin: warm/dry Progress/Results/Core Measures Results/Orders Lab Results Laboratory Tests Test 01/13/19 14:10 01/13/19 15:01 Range/Units Urine Color YELLOW Urine Clarity SLIGHTLY CLOUDY Urine pH 6 5-9 Urine Specific [place] 1.025 H 1.016-1.022 Urine Protein 2+ H NEGATIVE Urine Glucose (UA) NEGATIVE NEGATIVE Urine Ketones NEGATIVE NEGATIVE Urine Nitrite NEGATIVE NEGATIVE Urine Bilirubin 1+ H NEGATIVE Urine Urobilinogen 1 NORMAL MG/DL Urine Leukocyte Esterase 2+ H NEGATIVE Urine RBC (Auto) TRACE-I NEGATIVE Urine RBC RARE /HPF Urine WBC 25-50 H /HPF Urine Squamous Epithelial Cells 0-2 /HPF Urine Renal Epithelial Cells 0-2 /HPF Urine Crystals NONE /LPF Urine Bacteria MODERATE H /HPF Urine Casts PRESENT /LPF Urine Hyaline Casts 10-25 H /LPF Urine Mucus SMALL H /LPF Urine Culture Indicated YES Urine Opiates Screen NEGATIVE NEGATIVE Urine Oxycodone Screen NEGATIVE NEGATIVE Urine Methadone Screen NEGATIVE NEGATIVE Urine Propoxyphene Screen NEGATIVE NEGATIVE Urine Barbiturates Screen NEGATIVE NEGATIVE Ur Tricyclic Antidepressants Screen NEGATIVE NEGATIVE Urine Phencyclidine Screen NEGATIVE NEGATIVE Urine Amphetamines Screen NEGATIVE NEGATIVE Urine Methamphetamines Screen NEGATIVE NEGATIVE Urine Benzodiazepines Screen NEGATIVE NEGATIVE Urine Cocaine Screen NEGATIVE NEGATIVE Urine Cannabinoids Screen NEGATIVE NEGATIVE White Blood Count 10.7 4.3-11.0 10^3/uL Red Blood Count 5.75 4.35-5.85 10^6/uL Hemoglobin 16.2 H 11.5-16.0 G/DL Hematocrit 49 35-52 % Mean Corpuscular Volume 85 80-99 FL Mean Corpuscular Hemoglobin 28 25-34 PG Mean Corpuscular Hemoglobin Concent 33 32-36 G/DL Red Cell Distribution Width 14.7 H 10.0-14.5 % Platelet Count 224 130-400 10^3/uL Mean Platelet Volume 10.6 H 7.4-10.4 FL Neutrophils (%) (Auto) 73 42-75 % Lymphocytes (%) (Auto) 20 12-44 % Monocytes (%) (Auto) 6 0-12 % Eosinophils (%) (Auto) 1 0-10 % Basophils (%) (Auto) 0 0-10 % Neutrophils # (Auto) 7.8 1.8-7.8 X 10^3 Lymphocytes # (Auto) 2.1 1.0-4.0 X 10^3 Monocytes # (Auto) 0.7 0.0-1.0 X 10^3 Eosinophils # (Auto) 0.1 0.0-0.3 10^3/uL Basophils # (Auto) 0.0 0.0-0.1 10^3/uL Sodium Level 141 135-145 MMOL/L Potassium Level 3.1 L 3.6-5.0 MMOL/L Chloride Level 102 98-107 MMOL/L Carbon Dioxide Level 20 L 21-32 MMOL/L Anion Gap 19 H 5-14 MMOL/L Blood Urea Nitrogen 11 7-18 MG/DL Creatinine 0.84 0.60-1.30 MG/DL Estimat Glomerular Filtration Rate > 60 BUN/Creatinine Ratio 13 Glucose Level 121 H 70-105 MG/DL Calcium Level 9.6 8.5-10.1 MG/DL Corrected Calcium 9.6 8.5-10.1 MG/DL Total Bilirubin 0.5 0.1-1.0 MG/DL Aspartate Amino Transf (AST/SGOT) 36 H 5-34 U/L Alanine Aminotransferase (ALT/SGPT) 27 0-55 U/L Alkaline Phosphatase 137 H 40-136 U/L Total Protein 8.4 H 6.4-8.2 GM/DL Albumin 4.0 3.2-4.5 GM/DL Lipase 12 8-78 U/L Micro Results Microbiology 01/13/19 Urine Culture - Final, Complete See Report My Orders Orders - JASSI ARCINIEGA DO Ua Culture If Indicated (01/13/19 14:21) Drug Screen Stat (Urine) (01/13/19 14:21) Cbc With Automated Diff (01/13/19 14:30) Comprehensive Metabolic Panel (01/13/19 14:30) Lipase (01/13/19 14:30) Ed Iv/Invasive Line Start (01/13/19 14:30) Urine Culture (01/13/19 14:10) Lactated Ringers (Lr 1000 Ml Iv Solution (01/13/19 15:45) Ceftriaxone For Iv Use (Rocephin For I (01/13/19 15:45) Ondansetron Injection (Zofran Injectio (01/13/19 16:15) Ondansetron Injection (Zofran Injectio (01/13/19 16:12) Potassium Chloride (Tablet) (K Dur Table (01/13/19 16:45) Medications Given in ED Vital Signs/I&O 01/13/19 01/13/19 13:40 16:59 Temp 98.2 98.5 Pulse 96 85 Resp 18 18 B/P (MAP) 144/71 (95) 136/67 (90) Pulse Ox 97 97 O2 Delivery Room Air Room Air Progress Progress Note : Progress Note Improved p/ fluids and meds. Departure Impression Primary Impression: Nausea and vomiting Additional Impressions: Urinary tract infection Abdominal pain Hypokalemia Disposition: 01 HOME, SELF-CARE Condition: Stable Departure-Patient Inst. Decision time for Depature: 16:44 Referrals: ALFREDO LEON MD (PCP/Family) Primary Care Physician Patient Instructions: Nausea and Vomiting, Adult (DC), Urinary Tract Infection , Adult (DC) Add. Discharge Instructions: All discharge instructions reviewed with patient and/or family. Voiced understanding. NEED TO CALL YOUR PCP IN THE AM, 01/14, TO HAVE THEM ARRANGE AN OUTPATIENT PET SCAN OF YOUR ABDOMEN RECOMMENDED @ YOUR LAST ED VISIT. ALSO NEED TO CHECK WITH THEM TO SEE HOW YOUR REFERRAL TO HAVE YOUR STOMACH AND BOTTOM SCOPED. Scripts Cefuroxime Axetil (Cefuroxime) 250 Mg Tablet 250 MG PO BID for UTI for 10 Days, #20 TAB 0 Refills Prov: JASSI ARCINIEGA DO 01/13/19 Tramadol HCl (Tramadol HCl) 50 Mg Tablet 50-100 MG PO Q6H PRN for ABDOMINAL PAIN, #20 TAB 0 Refills Prov: JASSI ARCINIEGA DO 01/13/19 Metoclopramide HCl (Reglan) 5 Mg Tablet 5 MG PO ACHS, #60 TAB 0 Refills Prov: JASSI ARCINIEGA DO 01/13/19 JASSI ARCINIEGA DO Jan 13, 2019 15:41
[2019-01-13] MEDS ORDERED: cefTRIAXone FOR IV USE 1,000 MG in WATER (STERILE) FOR INJECTION 10 ML IV ONE (15:45)
[2019-01-13] MEDS ORDERED: LACTATED RINGERS 1,000 ML IV SCH (15:45)
[2019-01-13] MEDS ORDERED: ONDANSETRON 4 MG/2 ML (SDV) Z0FRAN ONE (16:12)
[2019-01-13] MEDS ORDERED: ONDANSETRON 4 MG/2 ML (SDV) Z0FRAN IVP ONE (16:15)
[2019-01-13] MEDS ORDERED: KCL 20 MEQ TAB (K-DUR) PO ONE (16:45)
[2019-01-13] MEDS ORDERED: TRAM50TA2 PO (16:49)
[2019-01-13] MEDS ORDERED: CEFU250T80 PO (16:49)
[2019-01-13] MEDS ORDERED: METO5TAB75 PO (16:49)
[2019-01-13 16:59] VITALS: BP 136/67
== END 2019-01-13 16:59 | disposition home or self-care (01) ==
LOC: EDUNIT# 13:35 → ER FS 13:37
DX: N39.0 Urinary tract infection, site not specified (principal); E87.6 Hypokalemia; I10 Essential (primary) hypertension; E11.9 Type 2 diabetes mellitus without complications; Z88.5 Allergy status to narcotic agent; Z88.2 Allergy status to sulfonamides; Z90.49 Acquired absence of other specified parts of digestive tract; Z90.710 Acquired absence of both cervix and uterus; Z98.890 Other specified postprocedural states
CPT/HCPCS: 36415; 80053; 80306; 81000; 83690; 85025; 87088

== ENCOUNTER 2019-01-17 05:39 | Outpatient (CLI) | payer MEDICARE, MEDICAID ==
[~2019-01-17] VITALS: Ht 162.6 cm; Wt 81.6 kg
[~2019-01-17 05:39] MED LIST changes: +CEFU250T80 PO; +METO5TAB75 PO; +TRAM50TA2 PO
[2019-01-17] MEDS ORDERED: CYCL10TA9 PO (16:09)
[2019-01-17] MEDS ORDERED: CETI10TA17 PO (16:09)
[2019-01-17] MEDS ORDERED: ALB0.5V INH (16:09)
[2019-01-17] MEDS ORDERED: AMIT50TA3 PO (16:09)
[2019-01-17] MEDS ORDERED: CHLO25TA22 PO (16:09)
[2019-01-17] MEDS ORDERED: LISI-552 PO (16:09)
[2019-01-17] MEDS ORDERED: ETOD400T PO (16:09)
[2019-01-17] MEDS ORDERED: CLOP75TA28 PO (16:09)
[2019-01-17] MEDS ORDERED: FENO160T12 PO (16:09)
[2019-01-17] MEDS ORDERED: FLUT9.9S NS (16:09)
[2019-01-17] MEDS ORDERED: CEPH500C PO (16:09)
[2019-01-17] MEDS ORDERED: DICY20TA10 PO (16:09)
[2019-01-18] MEDS ORDERED: ONDA4TAB11 PO (09:21)
[2019-01-18] MEDS ORDERED: OMEP20TA7 PO (09:21)
[2019-01-18] MEDS ORDERED: POTA-51 PO (09:21)
[2019-01-18] MEDS ORDERED: METO5TAB2 PO (09:21)
[2019-01-18] MEDS ORDERED: MONT10TA24 PO (09:21)
[2019-01-18] MEDS ORDERED: METF-398 PO (09:21)
[2019-01-18] MEDS ORDERED: SIMV20TA3 PO (09:21)
[2019-01-18] MEDS ORDERED: MAGN400T29 PO (09:21)
[2019-01-18] MEDS ORDERED: RT-ALBUINH INH (09:21)
[2019-01-18] MEDS ORDERED: TRAM50TA2 PO (09:21)
[2019-01-18] MEDS ORDERED: VENL150C PO (09:21)
== END 2019-01-18 11:03 | disposition home or self-care (01) ==
LOC: PREOP 05:39
PROVIDERS: ATTEND Surgery
DX: Z01.818 Encounter for other preprocedural examination (principal)

== ENCOUNTER 2019-01-21 09:21 | Day surgery (SDC) | payer MEDICARE, MEDICAID ==
[~2019-01-21] VITALS: Ht 162.6 cm; Wt 81.6 kg
[~2019-01-21 09:21] MED LIST changes: +ALB0.5V INH; +AMIT50TA3 PO; +CEPH500C PO; +CETI10TA17 PO; +CHLO25TA22 PO; +CLOP75TA28 PO; +CYCL10TA9 PO; +DICY20TA10 PO; +ETOD400T PO; +FENO160T12 PO; +FLUT9.9S NS; +LISI-552 PO; +MAGN400T29 PO; +METF-398 PO; +METO5TAB2 PO; +MONT10TA24 PO; +OMEP20TA7 PO; +RT-ALBUINH INH; +SIMV20TA3 PO; +VENL150C PO
[2019-01-21 09:25] VITALS: BP 136/75
[2019-01-21] MEDS ORDERED: LACTATED RINGERS 1,000 ML IV ONE (09:28)
[2019-01-21] MEDS ORDERED: MIDAZOLAM 2 MG/2 ML (VERSED) VIAL ONE (09:41)
[2019-01-21] MEDS ORDERED: proPOfol 200 MG/20 ML (DIPRIVAN) VIAL IV ONE (09:41)
--- NOTE | 2019-01-21 09:46 | Progress Note-Pre Operative ---
Pre-Operative Progress Note H&P Reviewed The H&P was reviewed, patient examined and no changes noted. Time Seen by Provider: 09:44 Date H&P Reviewed: January 21, 2019 Time H&P Reviewed: 09:45 Pre-Operative Diagnosis: vomiting, epigastric abd pain NAA BALDERRAMA DO January 21, 2019 09:46
[2019-01-21] MEDS ORDERED: LACTATED RINGERS 1,000 ML IV STA (09:52)
[2019-01-21] MEDS ORDERED: HURRICAINE EXT TUBE (BENZOCAINE) XX PRN (10:00)
[2019-01-21] MEDS ORDERED: HURRICAINE EXT TUBE (BENZOCAINE) ONE (10:11)
--- NOTE | 2019-01-21 10:38 | Progress Note-Post Operative ---
Post-Operative Progess Note Surgeon (s)/Single Needle Tufting Machine Operator (s) Surgeon NAA BALDERRAMA DO Single Needle Tufting Machine Operator: none Pre-Operative Diagnosis vomiting, epigastric abd pain Post-Operative Diagnosis Gastritis Hiatal Hernia Procedure & Operative Findings Date of Procedure 01/21/19 Procedure Performed/Findings EGD with bx Anesthesia Type IV sedation by HEALTHCARE MANAGER Estimated Blood Loss Estimated blood loss (mL): scant Specimens/Packing Specimens Removed antral bx Body of stomach bx NAA BALDERRAMA DO January 21, 2019 10:38
--- NOTE | 2019-01-21 10:44 | Endoscopy Discharge Instruct ---
Endo Procedure/Findings Findings 1.: Gastritis 2.: Hiatal Hernia Discharge Instructions - Activity: You might feel a little sleepy until tomorrow. This is due to the medicine you received to relax you. Until tomorrow, you should: NOT drive a car, operate machinery or power tools. NOT drink any alcoholic beverages. NOT make any important decisions or sign importortant papers. Do not return to work until tomorrow, unless otherwise instructed. Resume previous activities tomorrow. Diet: Start by taking liquids. If you tolerate liquids, advance to solid food. make an appointment for one week Instructions: 1.: EGD in 1 year Notify Physician - If you experience excessive bleeding, unusual abdominal pain, fever, or chest pain, contact your doctor immediately. Follow-Up: - I have received and understand the above instructions and will call my doctor if I have any further questions. Patient Signature Date Nurse Signature Other (Relationship) NAA BALDERRAMA DO January 21, 2019 10:44
[2019-01-21 10:55] VITALS: BP 124/72
[2019-01-21 11:25] VITALS: BP 101/75
--- NOTE | 2019-01-21 12:10 | Anesthesia-General Post-Op ---
MAC Patient Condition Mental Status/LOC: Same as Preop Cardiovascular: Satisfactory Nausea/Vomiting: Absent Respiratory: Satisfactory Pain: Controlled Complications: Absent Post Op Complications Complications None Follow Up Care/Instructions Patient Instructions None needed. Anesthesiology Discharge Order Discharge Order Patient is doing well, no complaints, stable vital signs, no apparent adverse anesthesia problems. No complications reported per nursing. JIMMY SOLANO CRNA January 21, 2019 12:09
[2019-01-21 12:32] VITALS: BP 101/75
--- OUTSIDE RECORDS SUMMARY | 2019-01-21 12:46 | XMS REPORT | Continuity of Care Document ---
Author Organization Unknown Address Unknown Allergies There is no data. Medications There is no data. Problems There is no data. Procedures There is no data. Results Test Result Range [facility] - 01/10/19 11:25 GLUCOSE 114 mg/dL 65-139 UREA NITROGEN (BUN) 12 mg/dL 7-25 CREATININE 0.87 mg/dL 0.50-0.99 eGFR NON-AFR. BENINESE 70 mL/min/1.73m2 > OR=60 eGFR 82 mL/min/1.73m2 [...] Status Pt. Type Provider Facility Loc./Unit Complaint [id number] 01/10/2019 10:45:00 01/10/2019 23:59:59 CLS Outpatient [facility] [id number] 01/10/2019 10:45:00 Document Registration
--- NOTE | 2019-01-21 17:28 | OPERATIVE REPORT ---
DATE OF SERVICE: 01/21/2019 PREOPERATIVE DIAGNOSES: Vomiting and epigastric pain. POSTOPERATIVE DIAGNOSES: Gastritis and hiatal hernia. PROCEDURE: EGD with biopsy. SURGEON: Roshan Anders DO RN FIELD CASE MANAGER: None. ANESTHESIA: IV sedation by the PERFECT BINDER SETTER. SPECIMEN: Biopsy from the antrum and one biopsy from the body of stomach. BLOOD LOSS: Scant. FLUIDS: Per anesthesia. POSTOPERATIVE CONDITION: Stable. INDICATION FOR PROCEDURE: The patient is a 63-year-old female, who has been having some vomiting and epigastric pain and needed workup. FINDINGS: She had some gastritis and a hiatal hernia. Biopsies performed, sent to pathology. PROCEDURE NOTE: After informed consent was obtained, the patient was brought to the endoscopy suite, placed in the bed in the left lateral decubitus position. She was administered IV sedation by the PERFECT BINDER SETTER, who then monitored her vitals the entire time, heart rate, blood pressure and pulse ox and the scope was inserted down the mouth through the esophagus into the stomach. Upon entering the stomach, noted some gastritis of the antrum, took a picture of this, pushed into the duodenum. Duodenum looked fine. Pulled back into the antrum and did a biopsy of the antrum. I then looked at the body of stomach. It also looked like it was a little bit inflamed. It did a biopsy of the body of the stomach, retroflexed the scope, saw very small hiatal hernia, took a picture and then pulled back up into the esophagus, did not see any GE junction changes and elected not to do a biopsy here and then pulled the scope up the esophagus and out the mouth. The patient was recovered in endoscopy suite. Job ID: [id number] DocumentID: [id number] Dictated Date: 01/21/2019 11:06:13 Firearms Model Maker Date: 01/21/2019 17:27:37 Dictated By: ROSHAN ANDERS DO
== END 2019-01-21 11:30 | disposition home or self-care (01) ==
LOC: ENDO 09:21
PROVIDERS: ATTEND Surgery
DX: K29.70 Gastritis, unspecified, without bleeding (principal); K44.9 Diaphragmatic hernia without obstruction or gangrene; K31.89 Other diseases of stomach and duodenum; J44.9 Chronic obstructive pulmonary disease, unspecified; F17.210 Nicotine dependence, cigarettes, uncomplicated; E78.5 Hyperlipidemia, unspecified; I10 Essential (primary) hypertension; E66.9 Obesity, unspecified; Z68.30 Body mass index [BMI] 30.0-30.9, adult; Z88.2 Allergy status to sulfonamides; Z88.5 Allergy status to narcotic agent; Z79.899 Other long term (current) drug therapy

== ENCOUNTER 2019-05-26 14:52 | Emergency (ER) | payer MEDICARE, MEDICAID ==
[~2019-05-26] VITALS: Ht 162.6 cm; Wt 80.7 kg
[2019-05-26] MEDS ORDERED: LACTATED RINGERS 1,000 ML IV ONE ×2 (15:04)
[2019-05-26] MEDS ORDERED: ONDANSETRON 4 MG/2 ML (SDV) Z0FRAN IV PRN (15:15)
--- NOTE | 2019-05-26 15:15 | ED GI ---
General Chief Complaint: Abdominal/GI Problems Stated Complaint: VOMITING Source of Information: Patient Exam Limitations: No Limitations History of Present Illness Date Seen by Provider: May 26, 2019 Time Seen by Provider: 14:53 Initial Comments Patient presents to ER by private conveyance from home with chief complaint of nausea vomiting for the past several months. She says she's also been constipated but today was able to pass a small amount of loose stool. She says everything she eats she immediately vomits back up. She's been working with her primary care doctor, Dr. Martinez and he sent her to [place] for a scan of her belly which was negative as well as set her up with a surgeon and had an EGD done which was also negative. She has not had any other swallow studies or testing done. She was given Zofran which she is been using with minimal relief. Her last dose was one hour ago and she continued to vomit every time she tried to eat or drink afterwards. She feels very hydrated, weak and tired. She denies any fevers. She's had a occasional cough lately. She is a smoker but does not drink or use drugs. She has a history of cholecystectomy, appendectomy, hysterectomy. No history of pancreatitis, diverticulitis, or IBD/IBS. She says she used to be diabetic but a year ago her primary care doctor took her off of all of her medications. She says this episode of nausea and vomiting happened last year in August and lasted for about a month and resolved spontaneously. Yesterday she says she took the last dose of antibiotics for a UTI. Allergies and Home Medications Allergies Coded Allergies: codeine (Verified Allergy, Intermediate, itching, nausea and vomiting., 01/17/19) morphine (Verified Allergy, Intermediate, itching, nausea and vomiting, 01/17/19) Sulfa (Sulfonamide Antibiotics) (Verified Allergy, Unknown, 01/17/19) Home Medications Cephalexin 500 Mg Capsule, 500 MG PO QID, (Reported) Chlorthalidone 25 Mg Tablet, 25 MG PO DAILY, (Reported) Dicyclomine HCl 20 Mg Tablet, 20 MG PO QID, (Reported) Fenofibrate 160 Mg Tablet, 160 MG PO DAILY, (Reported) Lisinopril 20 Mg Tablet, 20 MG PO DAILY, (Reported) Magnesium Oxide 400 Mg Tablet, 400 MG PO BID, (Reported) Metoclopramide HCl 5 Mg Tablet, 5 MG PO ACHS, (Reported) Omeprazole 20 Mg Tablet.dr, 20 MG PO DAILY, (Reported) Omeprazole 40 Mg Capsule.dr, 40 MG PO DAILY Prescribed by: CAMERON PEÑA on 05/26/191706 Ondansetron 8 Mg Tab.rapdis, 8 MG PO Q6H PRN for NAUSEA/VOMITING-1ST LINE Prescribed by: CAMERON PEÑA on 05/26/191706 Potassium Chloride 20 Meq Tablet.er, 20 MEQ PO DAILY, (Reported) Promethazine HCl 25 Mg Tablet, 25 MG PO Q6H PRN for NAUSEA/VOMITING-2ND LINE Prescribed by: CAMERON PEÑA on 05/26/191706 Sucralfate 1 Gm Tablet, 1 GM PO QIDACHS Prescribed by: CAMERON PEÑA on 05/26/191706 Venlafaxine HCl 150 Mg Cap.er.24h, 150 MG PO DAILY, (Reported) Patient Home Medication List Home Medication List Reviewed: Yes Review of Systems Review of Systems Constitutional: No chills, No diaphoresis EENTM: No Blurred Vision, No Double Vision Respiratory: Cough; Denies Shortness of Air Cardiovascular: Denies Chest Pain, Denies Edema Gastrointestinal: Abdominal Pain (epigastric), Constipated; Denies Diarrhea; Nausea, Vomiting Genitourinary: Denies Burning, Denies Discharge Musculoskeletal: No back pain, No joint pain Skin: No pruritus, No rash Psychiatric/Neurological: Denies Headache, Denies Numbness Past [id number]-Apcivc Hx Patient Social History Alcohol Use: Denies Use Recreational Drug Use: No Smoking Status: Current Everyday Smoker Type Used: Cigarettes 2nd Hand Smoke Exposure: Yes Recent Hopitalizations: No Immunizations Up To Date Date of Influenza Vaccine: Jun 25, 2018 Seasonal Allergies Seasonal Allergies: No Past Medical History Surgeries: Yes (knee arth bilat, right shoulder; back) Appendectomy, Gallbladder, Hysterectomy, Orthopedic Respiratory: No Cardiac: Yes (low potassium, low magnesium) Hypertension Neurological: No Sexually Transmitted Disease: No HIV/AIDS: No Genitourinary: No Gastrointestinal: Yes (EPIGASTRIC PAIN, N/V) Musculoskeletal: No Endocrine: No Diabetes, Non-Insulin dep HEENT: No (GLASSES) Loss of Vision: Bilateral Hearing Impairment: Denies Cancer: No Psychosocial: No Integumentary: No Blood Disorders: No Physical Exam Vital Signs Vital Signs - First Documented 05/26/19 14:55 Temp 98.1 Pulse 89 Resp 18 B/P (MAP) 97/56 (70) Pulse Ox 96 O2 Delivery Room Air Capillary Refill : Height/Weight/BMI Height: 5'4.00" Weight: 180lbs. 0.0oz. [id number]; 30.9 BMI Method:Stated General Appearance: moderate distress, obese HEENT: PERRL/EOMI; No pharynx normal (oropharynx mucosa is dry) Neck: normal inspection Respiratory: lungs clear, normal breath sounds, no respiratory distress, no accessory muscle use Cardiovascular: normal peripheral pulses, regular rate, rhythm Peripheral Pulses: 2+ Dorsalis Pedis (R), 2+ Left Dors-Pedis (L) Gastrointestinal: normal bowel sounds, non tender, soft, no organomegaly Extremities: normal inspection, normal capillary refill Neurologic/Psychiatric: alert, oriented x 3 Skin: normal color, warm/dry Focused Exam Lactate Level 05/26/19 15:25: Lactic Acid Level 1.20 Lactic Acid Level Laboratory Tests Test 05/26/19 15:25 Lactic Acid Level 1.20 MMOL/L (0.50-2.00) Progress/Results/Core Measures Results/Orders Lab Results Laboratory Tests Test 05/26/19 15:25 05/26/19 17:05 Range/Units White Blood Count 11.2 H 4.3-11.0 10^3/uL Red Blood Count 5.20 4.35-5.85 10^6/uL Hemoglobin 14.7 11.5-16.0 G/DL Hematocrit 44 35-52 % Mean Corpuscular Volume 85 80-99 FL Mean Corpuscular Hemoglobin 28 25-34 PG Mean Corpuscular Hemoglobin Concent 33 32-36 G/DL Red Cell Distribution Width 15.4 H 10.0-14.5 % Platelet Count 262 130-400 10^3/uL Mean Platelet Volume 9.8 7.4-10.4 FL Neutrophils (%) (Auto) 68 42-75 % Lymphocytes (%) (Auto) 24 12-44 % Monocytes (%) (Auto) 6 0-12 % Eosinophils (%) (Auto) 2 0-10 % Basophils (%) (Auto) 0 0-10 % Neutrophils # (Auto) 7.6 1.8-7.8 X 10^3 Lymphocytes # (Auto) 2.7 1.0-4.0 X 10^3 Monocytes # (Auto) 0.7 0.0-1.0 X 10^3 Eosinophils # (Auto) 0.2 0.0-0.3 10^3/uL Basophils # (Auto) 0.0 0.0-0.1 10^3/uL Prothrombin Time 13.6 12.2-14.7 SEC INR Comment 1.0 0.8-1.4 Activated Partial Thromboplast Time 32 24-35 SEC Sodium Level 139 135-145 MMOL/L Potassium Level 3.5 L 3.6-5.0 MMOL/L Chloride Level 98 98-107 MMOL/L Carbon Dioxide Level 24 21-32 MMOL/L Anion Gap 17 H 5-14 MMOL/L Blood Urea Nitrogen 13 7-18 MG/DL Creatinine 1.21 0.60-1.30 MG/DL Estimat Glomerular Filtration Rate 54 BUN/Creatinine Ratio 11 Glucose Level 111 H 70-105 MG/DL Lactic Acid Level 1.20 0.50-2.00 MMOL/L Calcium Level 10.1 8.5-10.1 MG/DL Corrected Calcium 10.1 8.5-10.1 MG/DL Total Bilirubin 0.5 0.1-1.0 MG/DL Aspartate Amino Transf (AST/SGOT) 31 5-34 U/L Alanine Aminotransferase (ALT/SGPT) 19 0-55 U/L Alkaline Phosphatase 140 H 40-136 U/L Troponin I < 0.30 <0.30 NG/ML Total Protein 8.5 H 6.4-8.2 GM/DL Albumin 4.0 3.2-4.5 GM/DL Lipase 12 8-78 U/L Urine Color YELLOW Urine Clarity CLEAR Urine pH 7.0 5-9 Urine Specific [place] <1.005 1.016-1.022 Urine Protein TRACE NEGATIVE Urine Glucose (UA) NEGATIVE NEGATIVE Urine Ketones TRACE H NEGATIVE Urine Nitrite NEGATIVE NEGATIVE Urine Bilirubin NEGATIVE NEGATIVE Urine Urobilinogen 1.0 NORMAL MG/DL Urine Leukocyte Esterase NEGATIVE NEGATIVE Urine RBC (Auto) NEGATIVE NEGATIVE Urine RBC NONE /HPF Urine WBC NONE /HPF Urine Squamous Epithelial Cells 2-5 /HPF Urine Crystals NONE /LPF Urine Bacteria NONE /HPF Urine Casts PRESENT /LPF Urine Hyaline Casts 2-5 H /LPF Urine Mucus NEGATIVE /LPF Urine Culture Indicated NO My Orders Orders - CAMERON PEÑA Cbc With Automated Diff (05/26/19 15:04) Comprehensive Metabolic Panel (05/26/19 15:04) Blood Culture (05/26/19 15:04) Sputum Culture (05/26/19 15:04) Urinalysis (05/26/19 15:04) Urine Culture (05/26/19 15:04) Protime With Inr (05/26/19 15:04) Partial Thromboplastin Time (05/26/19 15:04) Chest 1 View Ap/Pa Only (05/26/19 15:04) Ed Iv/Invasive Line Start (05/26/19 15:04) Ed Iv/Invasive Line Start (05/26/19 15:04) Ekg Tracing (05/26/19 15:04) Troponin I (05/26/19 15:04) Vital Signs Adult Sepsis Patie Q15M (05/26/19 15:04) Ondansetron Injection (Zofran Injectio (05/26/19 15:15) O2 (05/26/19 15:04) Remove Rings In Anticipation O (05/26/19 15:04) Lactic Acid Analyzer (05/26/19 15:04) Lactated Ringers (Lr 1000 Ml Iv Solution (05/26/19 15:04) Ed Iv/Invasive Line Start (05/26/19 15:04) Lactated Ringers (Lr 1000 Ml Iv Solution (05/26/19 15:04) Lipase (05/26/19 15:04) Ct Abdomen/Pelvis W (05/26/19 15:20) Iohexol Injection (Omnipaque 350 Mg/Ml 1 (05/26/19 15:45) Received Contrast (Hold Metformin- Contr (05/26/19 15:45) Sodium Chloride Flush (Catheter Flush Sy (05/26/19 15:45) Ns (Ivpb) (Sodium Chloride 0.9% Ivpb Bag (05/26/19 15:45) Medications Given in ED Current Medications Medications Dose Ordered Sig/Kalyn Route Start Time Stop Time Status Last Admin Dose Admin Iohexol 100 ml ONCE ONCE IV 05/26/19 15:45 05/26/19 15:46 DC 05/26/19 16:29 100 ML Lactated Ringer's 1,000 ml @ 0 mls/hr Q0M ONCE IV 05/26/19 15:04 05/26/19 15:11 DC 05/26/19 15:35 999 MLS/HR Ondansetron HCl 12 mg PRN PRN IV 05/26/19 15:15 05/26/19 15:35 DC 05/26/19 15:35 12 MG Sodium Chloride 10 ml NEEDED PRN IV 05/26/19 15:45 05/26/19 16:29 10 ML Sodium Chloride 100 ml ONCE ONCE IV 05/26/19 15:45 05/26/19 15:46 DC 05/26/19 16:29 100 ML Vital Signs/I&O 05/26/19 14:55 Temp 98.1 Pulse 89 Resp 18 B/P (MAP) 97/56 (70) Pulse Ox 96 O2 Delivery Room Air Progress Progress Note #1: Time: 15:16 Progress Note Gastritis versus pancreatitis versus small bowel obstruction versus obstipation? Patient's blood pressure is soft when she arrived so we'll give her 30 mL/kg fluid bolus based on an adjusted body weight of 144 pounds since she is over 30 BMI. Her map is 65. Check labs including lipase. Atypical angina? Plan to obtain EKG and troponin. We'll forego aspirin since she is nauseated and give her Zofran instead. Since she is recently getting off of a UTI we will recheck a urinalysis. She has a benign, soft belly exam at this time. A CT of the abdomen and pelvis would help us rule out obstruction versus obstipation. Progress Note #2: Time: 17:12 Progress Note Chronic, postprandial pain with nausea vomiting make us suspicious for mesenter ic ischemia but there is no evidence of acute mesenteric ischemia on CT with IV contrast. A more sensitive test may be a CT angiogram, MR angiogram or ultrasound duplex of the mesenteric arteries. We will encourage her to follow-up with primary care and consider a duplex ultrasound of the mesenteric vessels. She's had a significant amount of weight loss that has made her no longer diabetic is female which is the chief demographic and has other risk factors for coronary disease including smoking, obesity and age. 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 Within the past year she's had an EGD which would rule out ulcers or other gastric source of her symptoms. Her nausea is gone. We are going to put her out with some increased dose Zofran with backup Phenergan. We'll put her on a higher dose of omeprazole and some Carafate for the next few weeks while she works up her abdominal symptoms. Initial ECG Impression Date: May 26, 2019 Initial ECG Impression Time: 15:23 Initial ECG Rate: 84 Initial ECG Rhythm: Normal Sinus Initial ECG Intervals: QT (565) Initial ECG Impression: Normal, Nonspecific Changes Comment No clinically significant ST elevation or depression. Diagnostic Imaging Diagonstic Imaging: Xray Plain Films/CT/US/NM/MRI: chest (1v) Comments Unremarkable 1 view of the chest. NAME: [facility]LAY[facility] RAZO [facility] REC#: [id number] PT STATUS: REG ER : 1955 PHYSICIAN: CAMERON PEÑA MD ADMIT DATE: 05/26/19/ER FS Signed Date of Exam:05/26/19 CHEST 1 VIEW AP/PA ONLY INDICATION: Epigastric pain COMPARISON: None. FINDINGS: Frontal view of the chest demonstrates clear lungs bilaterally. The heart size is normal. There is no pneumothorax. Osseous structures are normal. IMPRESSION: No acute findings. Normal chest. Dictated by: Dictated on workstation # [id number] Dict: 05/26/19 1551 Trans: 05/26/19 1552 [id number] Interpreted by: DONNA TORRES Electronically signed by: DONNA TORRES 05/26/19 1552 Reviewed: Reviewed by Me Diagonstic Imaging: CT (with IV contrast) Plain Films/CT/US/NM/MRI: abdomen, pelvis Comments NAME: [facility]ANN[facility]LAYNE [facility] REC#: [id number] PT STATUS: REG ER : 1955 PHYSICIAN: CAMERON PEÑA MD ADMIT DATE: 05/26/19/ER FS Signed Date of Exam:05/26/19 CT ABDOMEN/PELVIS W PROCEDURE: CT abdomen and pelvis with contrast. TECHNIQUE: Multiple contiguous axial images were obtained through the abdomen and pelvis after administration of intravenous contrast. Auto Exposure Controls were utilized during the CT exam to meet ALARA standards for radiation dose reduction. INDICATION: Nausea, vomiting, and abdominal pain. COMPARISON: 12/10/2018. FINDINGS: Lung bases are clear. 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 The maximum size is 29 x 33 mm. This has increased compared to the previous examination. There is no occlusion or acute dissection. There is a chronic dissection in the left common iliac artery. No solid organ or bowel ischemia is seen. The gallbladder is surgically absent. Solid organs and bowel are unremarkable. There is no free air, free fluid, or inflammatory process. Distal ureters and urinary bladder are normal. The uterus is surgically absent. There is no hernia. Osseous structures are age appropriate. IMPRESSION: 1. Interval increase in size of the abdominal aortic aneurysm. No rupture or occlusion identified. 2. 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 3. Surgically absent gallbladder and uterus. 4. No inflammatory process, free air, free fluid, or bowel obstruction. Dictated by: Dictated on workstation # [id number] Dict: 05/26/19 1640 Trans: 05/26/19 1648 [id number] Interpreted by: DONNA TORRES Electronically signed by: DONNA TORRES 05/26/19 1648 Reviewed: Reviewed by Me Departure Impression Primary Impression: Gastritis Qualified Codes: K29.50 - Unspecified chronic gastritis without bleeding Additional Impression: Abdominal aortic aneurysm (AAA) 30 to 34 mm in diameter Disposition: 01 HOME, SELF-CARE Condition: Improved Departure-Patient Inst. Decision time for Depature: 16:56 Referrals: NAA BALDERRAMA PANKAJ K MD (PCP/Family) Primary Care Physician Patient Instructions: Gastritis (DC), Abdominal Aortic Aneurysm Add. Discharge Instructions: Follow-up in 2 weeks with primary care doctor scheduled appointment and discuss long-term outpatient management of your aneurysm. I suspect that you might have chronic mesenteric insufficiency. This is a diagnosis that your primary care doctor can help you rule in or out with an outpatient ultrasound. Discuss setting up Duplex ultrasonography of the mesenteric vessels through your primary care office to rule out insufficient blood flow is source of your symptoms. I strongly encourage you to quit smoking immediately as this is one of your biggest risk factors for causing insufficient blood flow to the gut. If you want to follow-up with the surgeon for your gastritis in 2-4 weeks that would also be reasonable. Zofran 8 mg every 6 hours as needed for nausea or vomiting. If that does not work you can take 25 mg of Phenergan every 6 hours as needed for nausea or vomiting for a second line. Start the Carafate 1 tablet 30 minutes prior to meals and at bedtime, 4 times a day for the next 2 weeks. Increase your omeprazole to 40 mg a day for the next 2-4 weeks. All discharge instructions reviewed with patient and/or family. Voiced understanding. Scripts Omeprazole (Omeprazole) 40 Mg Capsule.dr 40 MG PO DAILY for 30 Days, #30 CAP 0 Refills Prov: CAMERON PEÑA 05/26/19 Sucralfate (Carafate) 1 Gm Tablet 1 GM PO QIDACHS for 14 Days, #56 TAB 0 Refills Prov: CAMERON PEÑA 05/26/19 Ondansetron (Ondansetron Odt) 8 Mg Tab.rapdis 8 MG PO Q6H PRN for NAUSEA/VOMITING-1ST LINE, #20 TAB 0 Refills Prov: CAMERON PEÑA 05/26/19 Promethazine HCl (Promethazine Tablet) 25 Mg Tablet 25 MG PO Q6H PRN for NAUSEA/VOMITING-2ND LINE, #20 TAB 0 Refills Prov: CAMERON PEÑA 05/26/19 CAMERON PEÑA May 26, 2019 15:15
[2019-05-26 15:39] LABS: BASOPHILS % (AUTO) 0 % (0-10); EOSINOPHILS # (AUTO) 0.2 10^3/uL (0.0-0.3); EOSINOPHILS % (AUTO) 2 % (0-10); HEMATOCRIT 44 % (35-52); HEMOGLOBIN 14.7 G/DL (11.5-16.0); LYMPHOCYTES # (AUTO) 2.7 X 10^3 (1.0-4.0); LYMPHOCYTES % (AUTO) 24 % (12-44); MEAN CORPUSCULAR HEMOGLOBIN 28 PG (25-34); MEAN CORPUSCULAR HGB CONC 33 G/DL (32-36); MEAN CORPUSCULAR VOLUME 85 FL (80-99); MEAN PLATELET VOLUME 9.8 FL (7.4-10.4); MONOCYTES # (AUTO) 0.7 X 10^3 (0.0-1.0); MONOCYTES % (AUTO) 6 % (0-12); NEUTROPHILS # (AUTO) 7.6 X 10^3 (1.8-7.8); NEUTROPHILS % (AUTO) 68 % (42-75); PLATELET COUNT 262 10^3/uL (130-400); RED CELL DISTRIBUTION WIDTH 15.4 % (10.0-14.5); WHITE BLOOD COUNT 11.2 10^3/uL (4.3-11.0)
[2019-05-26] MEDS ORDERED: NS 100 ML (IVPB) BAG IV ONE (15:45)
[2019-05-26] MEDS ORDERED: CATHETER FLUSH 10 ML SYR IV PRN (15:45)
[2019-05-26] MEDS ORDERED: HOLD METFORMIN - RECEIVED CONTRAST 20 ML VIAL IV SCH (15:45)
[2019-05-26] MEDS ORDERED: IOHEXOL 350 MG/ML 100 ML (OMNIPAQUE 350) VIAL IV ONE (15:45)
[2019-05-26 15:49] LABS: PROTHROMBIN TIME PATIENT 13.6 SEC (12.2-14.7)
--- NOTE | 2019-05-26 15:52 | Diagnostic Imaging Report ---
INDICATION: Epigastric pain COMPARISON: None. FINDINGS: Frontal view of the chest demonstrates clear lungs bilaterally. The heart size is normal. There is no pneumothorax. Osseous structures are normal. IMPRESSION: No acute findings. Normal chest. Dictated by: Dictated on workstation # [id number]
[2019-05-26 16:01] LABS: BUN/CREATININE RATIO 11; CARBON DIOXIDE 24 MMOL/L (21-32); CHLORIDE 98 MMOL/L (98-107); CREATININE SERUM 1.21 MG/DL (0.60-1.30); GFR ESTIMATED 54; POTASSIUM 3.5 MMOL/L (3.6-5.0); SODIUM 139 MMOL/L (135-145)
[2019-05-26 16:02] LABS: ALANINE AMINOTRANSFERASE 19 U/L (0-55); ALKALINE PHOSPHATASE 140 U/L (40-136); BILIRUBIN,TOTAL 0.5 MG/DL (0.1-1.0); CALCIUM 10.1 MG/DL (8.5-10.1); GLUCOSE 111 MG/DL (70-105); LIPASE 12 U/L (8-78); TOTAL PROTEIN 8.5 GM/DL (6.4-8.2)
--- NOTE | 2019-05-26 16:48 | Diagnostic Imaging Report ---
PROCEDURE: CT abdomen and pelvis with contrast. TECHNIQUE: Multiple contiguous axial images were obtained through the abdomen and pelvis after administration of intravenous contrast. Auto Exposure Controls were utilized during the CT exam to meet ALARA standards for radiation dose reduction. INDICATION: Nausea, vomiting, and abdominal pain. COMPARISON: 12/10/2018. FINDINGS: Lung bases are clear. 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 The maximum size is 29 x 33 mm. This has increased compared to the previous examination. There is no occlusion or acute dissection. There is a chronic dissection in the left common iliac artery. No solid organ or bowel ischemia is seen. The gallbladder is surgically absent. Solid organs and bowel are unremarkable. There is no free air, free fluid, or inflammatory process. Distal ureters and urinary bladder are normal. The uterus is surgically absent. There is no hernia. Osseous structures are age appropriate. IMPRESSION: 1. Interval increase in size of the abdominal aortic aneurysm. No rupture or occlusion identified. 2. 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 3. Surgically absent gallbladder and uterus. 4. No inflammatory process, free air, free fluid, or bowel obstruction. Dictated by: Dictated on workstation # [id number]
[2019-05-26] MEDS ORDERED: SUCR1TAB36 PO (17:07)
[2019-05-26] MEDS ORDERED: OMEP40CA36 PO (17:07)
[2019-05-26] MEDS ORDERED: PROM25TA14 PO (17:07)
[2019-05-26] MEDS ORDERED: ONDA8TAB13 PO (17:07)
[2019-05-26 17:15] LABS: CLARITY,URINE CLEAR; COLOR,URINE YELLOW
[2019-05-26 17:16] LABS: BILIRUBIN,URINE NEGATIVE (NEGATIVE); GLUCOSE, URINE (UA) NEGATIVE (NEGATIVE); KETONES,URINE TRACE (NEGATIVE); LEUKOCYTE ESTERASE ,URINE NEGATIVE (NEGATIVE); NITRITE,URINE NEGATIVE (NEGATIVE); PROTEIN,URINE TRACE (NEGATIVE)
[2019-05-26 17:34] VITALS: BP 97/62
== END 2019-05-26 17:39 | disposition home or self-care (01) ==
LOC: EDUNIT# 14:52 → ER FS 14:53
DX: K29.70 Gastritis, unspecified, without bleeding (principal); I71.4 Abdominal aortic aneurysm, without rupture; E11.9 Type 2 diabetes mellitus without complications; I10 Essential (primary) hypertension; F17.210 Nicotine dependence, cigarettes, uncomplicated; Z88.5 Allergy status to narcotic agent; Z88.2 Allergy status to sulfonamides; Z90.49 Acquired absence of other specified parts of digestive tract; Z90.710 Acquired absence of both cervix and uterus
CPT/HCPCS: 36415; 71045; 74177; 80053; 81000; 83605; 83690; 84484; 85025; 85610; 85730; 87040; 87088; 93005; 96361; 96374

== ENCOUNTER 2019-06-02 21:39 | Emergency (ER) | payer MEDICARE, MEDICAID ==
[~2019-06-02] VITALS: Ht 162 cm; Wt 83.0 kg
[~2019-06-02 21:39] MED LIST changes: +OMEP40CA36 PO; +ONDA8TAB13 PO; +SUCR1TAB36 PO
[2019-06-02] MEDS ORDERED: NS IV 1000 ML 1,000 ML ONE (21:55)
[2019-06-02] MEDS ORDERED: KETOROLAC 15 MG/ML VIAL ONE (21:56)
[2019-06-02] MEDS ORDERED: fentaNYL INJECTION 100 MCG/2 ML AMP ONE (21:56)
--- NOTE | 2019-06-02 21:56 | ED General ---
General Stated Complaint: RIGHT FLANK PAIN History of Present Illness Date Seen by Provider: Jun 02, 2019 Time Seen by Provider: 21:51 Initial Comments Patient presenting to ED for evaluation of R flank pain that started suddenly at 6pm this evening. She said it is intense pain that causes nausea but no vomiting. No fevers, chills, diarrhea, constipation, dysuria, hematuria, vaginal bleeding or discharge. She says the pain radiates to R abdomen. She has had hysterectomy and cholecystectomy. She denies prior kidney stones. She is uncomfortable but non-toxic. Allergies and Home Medications Allergies Coded Allergies: codeine (Verified Allergy, Intermediate, itching, nausea and vomiting., 01/17/19) morphine (Verified Allergy, Intermediate, itching, nausea and vomiting, 01/17/19) Sulfa (Sulfonamide Antibiotics) (Verified Allergy, Unknown, 01/17/19) Home Medications Cephalexin 500 Mg Capsule, 500 MG PO QID, (Reported) Chlorthalidone 25 Mg Tablet, 25 MG PO DAILY, (Reported) Dicyclomine HCl 20 Mg Tablet, 20 MG PO QID, (Reported) Fenofibrate 160 Mg Tablet, 160 MG PO DAILY, (Reported) Lisinopril 20 Mg Tablet, 20 MG PO DAILY, (Reported) Magnesium Oxide 400 Mg Tablet, 400 MG PO BID, (Reported) Metoclopramide HCl 5 Mg Tablet, 5 MG PO ACHS, (Reported) Omeprazole 20 Mg Tablet.dr, 20 MG PO DAILY, (Reported) Omeprazole 40 Mg Capsule.dr, 40 MG PO DAILY Prescribed by: CAMERON PEÑA on 05/26/191706 Ondansetron 8 Mg Tab.rapdis, 8 MG PO Q6H PRN for NAUSEA/VOMITING-1ST LINE Prescribed by: CAMERON PEÑA on 05/26/191706 Potassium Chloride 20 Meq Tablet.er, 20 MEQ PO DAILY, (Reported) Promethazine HCl 25 Mg Tablet, 25 MG PO Q6H PRN for NAUSEA/VOMITING-2ND LINE Prescribed by: CAMERON PEÑA on 05/26/191706 Sucralfate 1 Gm Tablet, 1 GM PO QIDACHS Prescribed by: CAMERON PEÑA on 05/26/191706 Venlafaxine HCl 150 Mg Cap.er.24h, 150 MG PO DAILY, (Reported) Patient Home Medication List Home Medication List Reviewed: Yes Review of Systems Review of Systems Constitutional: no symptoms reported EENTM: no symptoms reported Respiratory: no symptoms reported Cardiovascular: no symptoms reported Gastrointestinal: abdominal pain, nausea Genitourinary: no symptoms reported Musculoskeletal: back pain Skin: no symptoms reported All Other Systems Reviewed Negative Unless Noted: Yes Past Dkmmxhx-Dudwtg-Odprdr Hx Patient Social History Type Used: Cigarettes 2nd Hand Smoke Exposure: Yes Recent Foreign Travel: No Contact w/Someone Who Travel: No Recent Hopitalizations: No Immunizations Up To Date Date of Influenza Vaccine: Jun 25, 2018 Seasonal Allergies Seasonal Allergies: No Past Medical History Surgeries: Yes (knee arth bilat, right shoulder; back) Appendectomy, Gallbladder, Hysterectomy, Orthopedic Respiratory: No Cardiac: Yes (low potassium, low magnesium) Hypertension Neurological: No Sexually Transmitted Disease: No HIV/AIDS: No Genitourinary: No Gastrointestinal: Yes (EPIGASTRIC PAIN, N/V) Musculoskeletal: No Endocrine: No Diabetes, Non-Insulin dep HEENT: No (GLASSES) Loss of Vision: Bilateral Hearing Impairment: Denies Cancer: No Psychosocial: No Integumentary: No Blood Disorders: No Physical Exam Vital Signs Vital Signs - First Documented 06/02/19 21:43 Temp 36.2 Pulse 84 Resp 20 B/P (MAP) 107/65 (79) Pulse Ox 98 O2 Delivery Room Air Capillary Refill : Height, Weight, BMI Height: 5'4.00" Weight: 178lbs. 0.0oz. 80.775275xz; 30.9 BMI Method:Stated General Appearance: No Apparent Distress, WD/WN Neck: Supple Respiratory: No Respiratory Distress Cardiovascular: Regular Rate, Rhythm Gastrointestinal: Non Tender, Soft Back: CVA Tenderness (R) Neurologic/Psychiatric: Alert, Oriented x3 Skin: Warm/Dry Progress/Results/Core Measures Suspected Sepsis SIRS Temperature: Pulse: Respiratory Rate: Laboratory Tests 06/02/19 21:56: White Blood Count 11.5H Blood Pressure / Mean: Laboratory Tests 06/02/19 21:56: Creatinine 1.08, Platelet Count 249, Total Bilirubin 0.3 Results/Orders Lab Results Laboratory Tests Test 06/02/19 21:56 06/02/19 23:10 Range/Units White Blood Count 11.5 H 4.3-11.0 10^3/uL Red Blood Count 5.00 4.35-5.85 10^6/uL Hemoglobin 14.1 11.5-16.0 G/DL Hematocrit 42 35-52 % Mean Corpuscular Volume 85 80-99 FL Mean Corpuscular Hemoglobin 28 25-34 PG Mean Corpuscular Hemoglobin Concent 33 32-36 G/DL Red Cell Distribution Width 15.1 H 10.0-14.5 % Platelet Count 249 130-400 10^3/uL Mean Platelet Volume 10.9 H 7.4-10.4 FL Neutrophils (%) (Auto) 63 42-75 % Lymphocytes (%) (Auto) 27 12-44 % Monocytes (%) (Auto) 7 0-12 % Eosinophils (%) (Auto) 2 0-10 % Basophils (%) (Auto) 0 0-10 % Neutrophils # (Auto) 7.3 1.8-7.8 X 10^3 Lymphocytes # (Auto) 3.1 1.0-4.0 X 10^3 Monocytes # (Auto) 0.8 0.0-1.0 X 10^3 Eosinophils # (Auto) 0.2 0.0-0.3 10^3/uL Basophils # (Auto) 0.0 0.0-0.1 10^3/uL Sodium Level 136 135-145 MMOL/L Potassium Level 3.7 3.6-5.0 MMOL/L Chloride Level 97 L 98-107 MMOL/L Carbon Dioxide Level 22 21-32 MMOL/L Anion Gap 17 H 5-14 MMOL/L Blood Urea Nitrogen 9 7-18 MG/DL Creatinine 1.08 0.60-1.30 MG/DL Estimat Glomerular Filtration Rate > 60 BUN/Creatinine Ratio 8 Glucose Level 99 70-105 MG/DL Calcium Level 9.6 8.5-10.1 MG/DL Corrected Calcium 9.8 8.5-10.1 MG/DL Total Bilirubin 0.3 0.1-1.0 MG/DL Aspartate Amino Transf (AST/SGOT) 24 5-34 U/L Alanine Aminotransferase (ALT/SGPT) 14 0-55 U/L Alkaline Phosphatase 135 40-136 U/L Total Protein 8.1 6.4-8.2 GM/DL Albumin 3.7 3.2-4.5 GM/DL Urine Color YELLOW Urine Clarity CLEAR Urine pH 6.0 5-9 Urine Specific [place] 1.020 1.016-1.022 Urine Protein NEGATIVE NEGATIVE Urine Glucose (UA) NEGATIVE NEGATIVE Urine Ketones NEGATIVE NEGATIVE Urine Nitrite NEGATIVE NEGATIVE Urine Bilirubin NEGATIVE NEGATIVE Urine Urobilinogen 1.0 NORMAL MG/DL Urine Leukocyte Esterase 1+ H NEGATIVE Urine RBC (Auto) NEGATIVE NEGATIVE Urine RBC NONE /HPF Urine WBC 10-25 H /HPF Urine Squamous Epithelial Cells 10-25 H /HPF Urine Crystals NONE /LPF Urine Bacteria FEW H /HPF Urine Casts NONE /LPF Urine Mucus NEGATIVE /LPF Urine Culture Indicated YES My Orders Orders - RAHUL WEATHERS DO Cbc With Automated Diff (06/02/19 21:51) Comprehensive Metabolic Panel (06/02/19 21:51) Ua Culture If Indicated (06/02/19 21:51) Ct Abdomen/Pelvis Wo (06/02/19 21:51) Ondansetron Injection (Zofran Injectio (06/02/19 22:00) Ketorolac Injection (Toradol Injection) (06/02/19 22:00) Fentanyl Injection (Sublimaze Injection (06/02/19 22:00) Ns Iv 1000 Ml (Sodium Chloride 0.9%) (06/02/19 22:00) Ketorolac Injection (Toradol Injection) (06/02/19 21:56) Fentanyl Injection (Sublimaze Injection (06/02/19 21:56) Ns Iv 1000 Ml (Sodium Chloride 0.9%) (06/02/19 21:55) Hydrocodone/Apap 5/325 Tablet (Lortab 5 (06/02/19 23:30) Urine Culture (06/02/19 23:10) Medications Given in ED Current Medications Medications Dose Ordered Sig/Kalyn Route Start Time Stop Time Status Last Admin Dose Admin Fentanyl Citrate 50 mcg ONCE ONCE IVP 06/02/19 22:00 06/02/19 22:26 DC 06/02/19 22:10 50 MCG Ketorolac Tromethamine 15 mg ONCE ONCE IVP 06/02/19 22:00 06/02/19 22:26 DC 06/02/19 22:10 15 MG Ondansetron HCl 4 mg ONCE ONCE IVP 06/02/19 22:00 06/02/19 22:26 DC 06/02/19 22:10 4 MG Vital Signs/I&O 06/02/19 21:43 Temp 36.2 Pulse 84 Resp 20 B/P (MAP) 107/65 (79) Pulse Ox 98 O2 Delivery Room Air Capillary Refill : Progress Note : Progress Note Symptoms may be consistent with kidney stone. Will check labs, imaging, UA, treat pain and reassess. Patient's pain down to 5/10 after fentanyl and toradol. Workup shows mild leukocytosis and CT with no obstructing stone. Unsure of what is exactly causing pain but may be a passed stone. No s/s of acute emergent pathology. Given she appears well with normal VS, benign PE and workup will dc in stable condition. Told to follow with PCP in 1-2 days and come back to the ED sooner with worsening pain, fevers, vomiting, or other general concerns. All incidental findings discussed as well as the need for f/u. Ibuprofen and norco for pain. Departure Impression Primary Impression: Right flank pain Disposition: HOME, SELF-CARE Condition: Stable Departure-Patient Inst. Referrals: ALFERDO LEON MD (PCP/Family) Primary Care Physician Patient Instructions: Flank Pain (DC) Scripts Ondansetron (Ondansetron Odt) 4 Mg Tab.rapdis 4 MG PO Q8H, #10 TAB Prov: RAHUL WEATHERS DO 06/02/19 Hydrocodone/Acetaminophen (Midnight 5-325 Tablet) 1 Each Tablet 1 TAB PO Qhs for Pain MDD 10 TABS for 5 Days, TAB Prov: RAHUL WEATHERS DO 06/02/19 Ibuprofen (Ibuprofen) 600 Mg Tablet 600 MG PO Q6H PRN for PAIN-MILD, #30 TAB Prov: RAHUL WEATHERS DO 06/02/19 RAHUL WEATHERS DO Jun 02, 2019 21:56
[2019-06-02] MEDS ORDERED: ONDANSETRON 4 MG/2 ML (SDV) Z0FRAN IVP ONE (22:00)
[2019-06-02] MEDS ORDERED: NS IV 1000 ML 1,000 ML IV SCH (22:00)
[2019-06-02] MEDS ORDERED: KETOROLAC 15 MG/ML VIAL IVP ONE (22:00)
[2019-06-02] MEDS ORDERED: fentaNYL INJECTION 100 MCG/2 ML AMP IVP ONE (22:00)
[2019-06-02 22:12] LABS: HEMATOCRIT 42 % (35-52); HEMOGLOBIN 14.1 G/DL (11.5-16.0); LYMPHOCYTES % (AUTO) 27 % (12-44); MEAN CORPUSCULAR HEMOGLOBIN 28 PG (25-34); MEAN CORPUSCULAR HGB CONC 33 G/DL (32-36); MEAN CORPUSCULAR VOLUME 85 FL (80-99); MEAN PLATELET VOLUME 10.9 FL (7.4-10.4); NEUTROPHILS % (AUTO) 63 % (42-75); PLATELET COUNT 249 10^3/uL (130-400); RED CELL DISTRIBUTION WIDTH 15.1 % (10.0-14.5); WHITE BLOOD COUNT 11.5 10^3/uL (4.3-11.0)
[2019-06-02 22:13] LABS: BASOPHILS % (AUTO) 0 % (0-10); EOSINOPHILS # (AUTO) 0.2 10^3/uL (0.0-0.3); EOSINOPHILS % (AUTO) 2 % (0-10); LYMPHOCYTES # (AUTO) 3.1 X 10^3 (1.0-4.0); MONOCYTES # (AUTO) 0.8 X 10^3 (0.0-1.0); MONOCYTES % (AUTO) 7 % (0-12); NEUTROPHILS # (AUTO) 7.3 X 10^3 (1.8-7.8)
[2019-06-02 22:26] LABS: ALANINE AMINOTRANSFERASE 14 U/L (0-55); ALBUMIN 3.7 GM/DL (3.2-4.5); ALKALINE PHOSPHATASE 135 U/L (40-136); BILIRUBIN,TOTAL 0.3 MG/DL (0.1-1.0); BUN/CREATININE RATIO 8; CALCIUM 9.6 MG/DL (8.5-10.1); CARBON DIOXIDE 22 MMOL/L (21-32); CHLORIDE 97 MMOL/L (98-107); CREATININE SERUM 1.08 MG/DL (0.60-1.30); GFR ESTIMATED > 60; GLUCOSE 99 MG/DL (70-105); POTASSIUM 3.7 MMOL/L (3.6-5.0); SODIUM 136 MMOL/L (135-145); TOTAL PROTEIN 8.1 GM/DL (6.4-8.2)
[2019-06-02 23:15] LABS: BILIRUBIN,URINE NEGATIVE (NEGATIVE); CLARITY,URINE CLEAR; COLOR,URINE YELLOW; GLUCOSE, URINE (UA) NEGATIVE (NEGATIVE); KETONES,URINE NEGATIVE (NEGATIVE); LEUKOCYTE ESTERASE ,URINE 1+ (NEGATIVE); NITRITE,URINE NEGATIVE (NEGATIVE); PROTEIN,URINE NEGATIVE (NEGATIVE)
[2019-06-02 23:21] LABS: BACTERIA,URINE FEW /HPF
[2019-06-02] MEDS ORDERED: HYDROcodone/APAP 5 MG/325 MG (LORTAB) TAB PO ONE (23:30)
[2019-06-02] MEDS ORDERED: IBUP-1773 PO (23:34)
[2019-06-02] MEDS ORDERED: HYDR-4226 PO (23:34)
[2019-06-02] MEDS ORDERED: ONDA4TAB11 PO (23:34)
[2019-06-02 23:41] VITALS: BP 110/41
--- NOTE | 2019-06-03 05:53 | Diagnostic Imaging Report ---
PROCEDURE: CT abdomen and pelvis without contrast. TECHNIQUE: Multiple contiguous axial images were obtained through the abdomen and pelvis without the use of intravenous contrast. Auto Exposure Controls were utilized during the CT exam to meet ALARA standards for radiation dose reduction. INDICATION: Right flank pain. COMPARISON: 05/26/2019. FINDINGS: The heart is unremarkable. Centrilobular emphysema is noted in the lung bases with bibasilar dependent atelectasis. A punctate 1 mm nonobstructing stone is seen in the mid right kidney. No obstructing calculi or hydronephrosis. A macronodular contour of the liver is noted. No focal hepatic lesions are seen. The gallbladder is surgically absent. No intra-or extrahepatic biliary dilation. The spleen, pancreas, and adrenal glands have a normal noncontrast CT appearance. There is no pathologically enlarged mesenteric or retroperitoneal adenopathy. Stable infrarenal abdominal aortic aneurysm measuring 3.3 cm. There is calcified aortic and iliac atherosclerotic plaque. The bowel loops are nondilated. There is no free fluid or free air. The osseous structures are age-appropriate. The bladder is mildly distended and has an unremarkable appearance. There is no free air, loculated collection, or adenopathy in the pelvis. IMPRESSION: 1. No evidence of hydronephrosis or obstructing calculi. A punctate nonobstructing calculus is seen in the mid right kidney measuring 1 mm. Agree with overnight report. 2. Stable infrarenal abdominal aortic aneurysm. 3. Cirrhotic morphology of the liver. Recommend correlation with LFTs. Dictated by: Dictated on workstation # [id number]
== END 2019-06-02 23:41 | disposition home or self-care (01) ==
LOC: EDUNIT# 21:39 → ER FS 21:41
DX: R10.9 Unspecified abdominal pain (principal); I10 Essential (primary) hypertension; E11.9 Type 2 diabetes mellitus without complications; Z90.710 Acquired absence of both cervix and uterus; Z90.49 Acquired absence of other specified parts of digestive tract; Z88.5 Allergy status to narcotic agent; Z88.2 Allergy status to sulfonamides; Z77.22 Contact with and (suspected) exposure to environmental tobacco smoke (acute) (chronic)
CPT/HCPCS: 36415; 74176; 80053; 81000; 85025; 87077; 87088; 96374; 96375

== ENCOUNTER 2019-09-08 09:55 | Emergency (ER) | payer MEDICARE, MEDICAID ==
[~2019-09-08] VITALS: Ht 162.5 cm; Wt 73.6 kg
[~2019-09-08 09:55] MED LIST changes: +HYDR-4226 PO; +IBUP-1773 PO
--- NOTE | 2019-09-08 10:13 | ED Cardiac General ---
History of Present Illness General Chief Complaint: Chest Pain Stated Complaint: CHEST PAIN Source: patient Exam Limitations: no limitations History of Present Illness Date Seen by Provider: Sep 08, 2019 Time Seen by Provider: 10:11 Initial Comments 64-year-old female comes in because she "doesn't feel good" patient has a cough that woke her up around 3:00 this morning, nausea, generalized malaise, body aches, pain in her right chest especially with cough. No reports of fever, vomiting, no shortness of breath. Patient does continue to smoke. She has no other systemic complaints at this time. Allergies and Home Medications Allergies Coded Allergies: codeine (Verified Allergy, Intermediate, itching, nausea and vomiting., 01/17/19) morphine (Verified Allergy, Intermediate, itching, nausea and vomiting, 01/17/19) Sulfa (Sulfonamide Antibiotics) (Verified Allergy, Unknown, 01/17/19) Home Medications Atorvastatin Calcium 10 Mg Tablet, 10 MG PO HS, (Reported) Chlorthalidone 25 Mg Tablet, 25 MG PO DAILY, (Reported) Dicyclomine HCl 20 Mg Tablet, 20 MG PO QID, (Reported) Lisinopril 20 Mg Tablet, 20 MG PO DAILY, (Reported) Magnesium Oxide 400 Mg Tablet, 400 MG PO BID, (Reported) Metoclopramide HCl 5 Mg Tablet, 5 MG PO ACHS, (Reported) Omeprazole 20 Mg Tablet.dr, 20 MG PO DAILY, (Reported) Oseltamivir Phosphate 75 Mg Cap, 75 MG PO BID Prescribed by: ELMER VALERIO on 09/08/19 1100 Potassium Chloride 20 Meq Tablet.er, 20 MEQ PO DAILY, (Reported) Venlafaxine HCl 150 Mg Cap.er.24h, 150 MG PO DAILY, (Reported) Patient Home Medication List Home Medication List Reviewed: Yes Review of Systems Review of Systems Constitutional: No chills; malaise Respiratory: Cough; Denies Shortness of Air Cardiovascular: Chest Pain (right-sided with cough) Gastrointestinal: Nausea Skin: no symptoms reported Psychiatric/Neurological: No Symptoms Reported Endocrine: No Symptoms Reported Past Allaepz-Iftqym-Lryqij Hx Past Med/Social Hx: Reviewed Nursing Past Med/Soc Hx Patient Social History Alcohol Use: Denies Use Recreational Drug Use: No Smoking Status: Current Everyday Smoker Type Used: Cigarettes 2nd Hand Smoke Exposure: Yes Recent Hopitalizations: No Physical Abuse: No Sexual Abuse: No Mistreated: No Fear: No Immunizations Up To Date Date of Influenza Vaccine: Jun 25, 2019 Seasonal Allergies Seasonal Allergies: No Past Medical History Surgeries: Yes (knee arth bilat, right shoulder; back) Appendectomy, Gallbladder, Hysterectomy, Orthopedic Respiratory: No Cardiac: Yes (low potassium, low magnesium) Hypertension Neurological: No Sexually Transmitted Disease: No HIV/AIDS: No Genitourinary: No Gastrointestinal: Yes (EPIGASTRIC PAIN, N/V) Musculoskeletal: No Endocrine: No Diabetes, Non-Insulin dep HEENT: No (GLASSES) Loss of Vision: Bilateral Hearing Impairment: Denies Cancer: No Psychosocial: No Integumentary: No Blood Disorders: No Physical Exam Vital Signs Vital Signs - First Documented 09/08/19 09:58 Temp 35.7 Pulse 99 Resp 16 B/P (MAP) 134/74 (94) Pulse Ox 96 O2 Delivery Room Air Capillary Refill : Height, Weight, BMI Height: 5'4.00" Weight: 178lbs. 0.0oz. 80.235404iv; 31.00 BMI Method:Stated General Appearance: No Apparent Distress HEENT: Normal ENT Inspection Neck: Non Tender, Supple Respiratory: Chest Non Tender, Lungs Clear, Normal Breath Sounds, No Accessory Muscle Use Cardiovascular: Regular Rate, Rhythm Gastrointestinal: Normal Bowel Sounds Rectal: Normal Exam Extremity: Normal Capillary Refill, Normal Inspection Neurologic/Psychiatric: Alert, Oriented x3, No Motor/Sensory Deficits, Normal Mood/Affect, resource efficiency manager II-XII Norm as Tested Skin: Normal Color Progress/Results/Core Measures Results/Orders Lab Results Laboratory Tests Test 09/08/19 10:05 Range/Units White Blood Count 9.9 4.3-11.0 10^3/uL Red Blood Count 5.17 4.35-5.85 10^6/uL Hemoglobin 14.4 11.5-16.0 G/DL Hematocrit 44 35-52 % Mean Corpuscular Volume 84 80-99 FL Mean Corpuscular Hemoglobin 28 25-34 PG Mean Corpuscular Hemoglobin Concent 33 32-36 G/DL Red Cell Distribution Width 14.6 H 10.0-14.5 % Platelet Count 268 130-400 10^3/uL Mean Platelet Volume 10.7 H 7.4-10.4 FL Sodium Level 141 135-145 MMOL/L Potassium Level 2.9 L 3.6-5.0 MMOL/L Chloride Level 99 98-107 MMOL/L Carbon Dioxide Level 26 21-32 MMOL/L Anion Gap 16 H 5-14 MMOL/L Blood Urea Nitrogen 7 7-18 MG/DL Creatinine 0.81 0.60-1.30 MG/DL Estimat Glomerular Filtration Rate > 60 BUN/Creatinine Ratio 9 Glucose Level 175 H 70-105 MG/DL Calcium Level 9.6 8.5-10.1 MG/DL Corrected Calcium 9.7 8.5-10.1 MG/DL Magnesium Level 1.7 1.6-2.4 MG/DL Total Bilirubin 0.3 0.1-1.0 MG/DL Aspartate Amino Transf (AST/SGOT) 43 H 5-34 U/L Alanine Aminotransferase (ALT/SGPT) 28 0-55 U/L Alkaline Phosphatase 179 H 40-136 U/L C-Reactive Protein 1.24 H <0.50 MG/DL Total Protein 8.9 H 6.4-8.2 GM/DL Albumin 3.9 3.2-4.5 GM/DL Micro Results Microbiology 09/08/19 Influenza Types A,B Antigen (JULISA) - Final, Complete My Orders Orders - VALERIO,ELMER L DO Ekg Tracing (09/08/19 10:14) Monitor-Rhythm Ecg Trace Only (09/08/19 10:14) Chest Pa/Lat (2 View) (09/08/19 10:14) Cbc No Diff (09/08/19 10:14) Comprehensive Metabolic Panel (09/08/19 10:14) Magnesium (09/08/19 10:14) Influenza A And B Antigens (09/08/19 10:14) Crp Fs (09/08/19 10:14) Vital Signs/I&O 09/08/19 09/08/19 09:58 09:58 Temp 35.7 Pulse 99 Resp 16 B/P (MAP) 134/74 (94) Pulse Ox 96 O2 Delivery Room Air Room Air Departure Impression Primary Impression: Influenza B Disposition: 01 HOME, SELF-CARE Condition: Stable Departure-Patient Inst. Referrals: ALFREDO LEON MD (PCP/Family) Primary Care Physician Patient Instructions: Flu, Adult (DC) Add. Discharge Instructions: Emergency department focuses on treating and ruling out life-threatening diseases. Whenever possible, a diagnosis is given. However, most patients are given an impression based on their history, physical exam, and workup during your brief time in the ER. Information about probable diagnosis and other educational material has been provided. Please take the time to read and understand this information. It is very important that you follow up with a physician as discussed during the visit today. Failure to adhere to your follow-up instructions may lead to severe disability, injury, or so please make sure to keep your appointments or obtain one as requested. Please keep in mind the emergency department is not designed to your primary care or "family doctor" and nonurgent issues are best evaluated by an outpatient physician All discharge instructions reviewed with patient and/or family. Voiced understanding. Scripts Oseltamivir Phosphate (Tamiflu) 75 Mg Cap 75 MG PO BID for 5 Days, #10 CAP Prov: ELMER VALERIO DO 09/08/19 ELMER VALERIO DO Sep 08, 2019 10:13
[2019-09-08 10:29] LABS: WHITE BLOOD COUNT 9.9 10^3/uL (4.3-11.0)
--- NOTE | 2019-09-08 10:29 | Diagnostic Imaging Report ---
EXAMINATION: Chest 2 view HISTORY: Chest pain COMPARISON: 05/26/2019 FINDINGS: The lung volumes are normal. No focal consolidation is seen. No large pleural effusion or pneumothorax is seen. The cardiomediastinal silhouette is normal in size and contour. A small amount of atherosclerotic plaque is seen in the aorta. No acute osseous abnormality is seen. IMPRESSION: 1. No acute pleuroparenchymal process. Dictated by: Dictated on workstation # [id number]
[2019-09-08 10:30] LABS: HEMOGLOBIN 14.4 G/DL (11.5-16.0); MEAN PLATELET VOLUME 10.7 FL (7.4-10.4); RED CELL DISTRIBUTION WIDTH 14.6 % (10.0-14.5)
[2019-09-08 10:42] LABS: ALANINE AMINOTRANSFERASE 28 U/L (0-55); ALBUMIN 3.9 GM/DL (3.2-4.5); ALKALINE PHOSPHATASE 179 U/L (40-136); BILIRUBIN,TOTAL 0.3 MG/DL (0.1-1.0); BUN/CREATININE RATIO 9; CALCIUM 9.6 MG/DL (8.5-10.1); CARBON DIOXIDE 26 MMOL/L (21-32); CHLORIDE 99 MMOL/L (98-107); CREATININE SERUM 0.81 MG/DL (0.60-1.30); GFR ESTIMATED > 60; GLUCOSE 175 MG/DL (70-105); MAGNESIUM 1.7 MG/DL (1.6-2.4); POTASSIUM 2.9 MMOL/L (3.6-5.0); SODIUM 141 MMOL/L (135-145); TOTAL PROTEIN 8.9 GM/DL (6.4-8.2)
[2019-09-08] MEDS ORDERED: ATOR10TA66 PO (10:48)
[2019-09-08] MEDS ORDERED: OSLT75C PO (11:00)
[2019-09-08 11:15] VITALS: BP 137/86
--- NOTE | 2019-09-08 11:15 | NUR ---
Pt discharged at this time with review of instructions. Pt instructed to double up on her K+ for [address] Butler as potassium is low. Pt states she had recently had her dose cut in half by her Dr. No dysrrhythmia noted on monitor. Depart with stable vitals, see discharge summary.
== END 2019-09-08 11:15 | disposition home or self-care (01) ==
LOC: EDUNIT# 09:55 → ER FS 09:56
DX: J10.1 Influenza due to other identified influenza virus with other respiratory manifestations (principal); I10 Essential (primary) hypertension; E11.9 Type 2 diabetes mellitus without complications; F17.210 Nicotine dependence, cigarettes, uncomplicated; Z90.49 Acquired absence of other specified parts of digestive tract; Z90.710 Acquired absence of both cervix and uterus; Z88.5 Allergy status to narcotic agent; Z88.2 Allergy status to sulfonamides
CPT/HCPCS: 36415; 71046; 80053; 83735; 85027; 86141; 87804; 93041

== ENCOUNTER 2019-10-09 17:28 | Emergency (ER) | payer MEDICARE, MEDICAID ==
[~2019-10-09] VITALS: Ht 160 cm; Wt 69.8 kg
[~2019-10-09 17:28] MED LIST changes: +ATOR10TA66 PO; +OMEP40CA27 PO; -OMEP40CA36 PO; +OSLT75C PO; +SIMV20TA26 PO; -SIMV20TA3 PO; -TRAM50TA2 PO; +TRM50T PO
--- NOTE | 2019-10-09 17:43 | ED General ---
General Chief Complaint: Back Problems Stated Complaint: BACK PAIN History of Present Illness Date Seen by Provider: Oct 09, 2019 Time Seen by Provider: 17:50 Initial Comments 64-year-old female with a remote history of lumbar surgery 15 or 20 years ago her micropaleontologist says she gets flareups of back pain every few months she presents complaining of 3 days of progressive increased burning pain in the lower lumbar and sacral area no hx of recent fall or injury she walked into the ER and doesn't seem to have any major symptoms in her lower extremities Allergies and Home Medications Allergies Coded Allergies: codeine (Verified Allergy, Intermediate, itching, nausea and vomiting., 01/17/19) morphine (Verified Allergy, Intermediate, itching, nausea and vomiting, 01/17/19) Sulfa (Sulfonamide Antibiotics) (Verified Allergy, Unknown, 01/17/19) Home Medications Atorvastatin Calcium 10 Mg Tablet, 10 MG PO HS, (Reported) Chlorthalidone 25 Mg Tablet, 25 MG PO DAILY, (Reported) Dicyclomine HCl 20 Mg Tablet, 20 MG PO QID, (Reported) Hydrocodone Bit/Acetaminophen 1 Tab Tab, 1 EACH PO Q4-6HR PRN for PAIN-MODERATE Prescribed by: LAKSHMI ZEE on 10/09/19 1802 Lisinopril 20 Mg Tablet, 20 MG PO DAILY, (Reported) Magnesium Oxide 400 Mg Tablet, 400 MG PO BID, (Reported) Metoclopramide HCl 5 Mg Tablet, 5 MG PO ACHS, (Reported) Omeprazole 20 Mg Tablet.dr, 20 MG PO DAILY, (Reported) Oseltamivir Phosphate 75 Mg Cap, 75 MG PO BID Prescribed by: ELMER VALERIO on 09/08/19 1100 Potassium Chloride 20 Meq Tablet.er, 20 MEQ PO DAILY, (Reported) Venlafaxine HCl 150 Mg Cap.er.24h, 150 MG PO DAILY, (Reported) Patient Home Medication List Home Medication List Reviewed: Yes Review of Systems Review of Systems Constitutional: no symptoms reported EENTM: no symptoms reported Respiratory: no symptoms reported Cardiovascular: no symptoms reported Gastrointestinal: no symptoms reported; No abdominal pain, No diarrhea, No nausea, No vomiting Genitourinary: no symptoms reported; No dysuria, No frequency, No hematuria Musculoskeletal: back pain Past Rztvbtm-Eqgfcc-Rhtbcm Hx Patient Social History Type Used: Cigarettes 2nd Hand Smoke Exposure: Yes Recent Foreign Travel: No Contact w/Someone Who Travel: No Recent Hopitalizations: No Immunizations Up To Date Date of Influenza Vaccine: Jun 25, 2019 Seasonal Allergies Seasonal Allergies: No Past Medical History Surgeries: Yes (knee arth bilat, right shoulder; back) Appendectomy, Gallbladder, Hysterectomy, Orthopedic Respiratory: No Cardiac: Yes (low potassium, low magnesium) Hypertension Neurological: No Sexually Transmitted Disease: No HIV/AIDS: No Genitourinary: No Gastrointestinal: Yes (EPIGASTRIC PAIN, N/V) Musculoskeletal: No Endocrine: No Diabetes, Non-Insulin dep HEENT: No (GLASSES) Loss of Vision: Bilateral Hearing Impairment: Denies Cancer: No Psychosocial: No Integumentary: No Blood Disorders: No Physical Exam Vital Signs Vital Signs - First Documented 10/09/19 17:39 Temp 36.7 Pulse 83 Resp 18 B/P (MAP) 124/101 (109) Pulse Ox 96 O2 Delivery Room Air Capillary Refill : Height, Weight, BMI Height: 5'4.00" Weight: 178lbs. 0.0oz. 80.447085we; 27.00 BMI Method:Stated General Appearance: Mild Distress Eyes: Bilateral Eye PERRL, Bilateral Eye EOMI HEENT: Pharynx Normal, Moist Mucous Membranes Neck: Supple Respiratory: Lungs Clear Cardiovascular: Regular Rate, Rhythm Gastrointestinal: Normal Bowel Sounds, Non Tender (patient has strong plantar and dorsiflexion bilaterally normal muscle tone in her legs normal reflexes she tolerates straight leg raising pretty well actually), Soft Back: Other (pt has a vertical midline lumbar scar describes burning pain in that area and down into the buttocks and the sacral area) Progress/Results/Core Measures Suspected Sepsis SIRS Temperature: Pulse: Respiratory Rate: Blood Pressure / Mean: Results/Orders My Orders Orders - LAKSHMI ZEE MD Ketorolac Injection (Toradol Injection) (10/09/19 17:45) Orphenadrine Injection (Norflex Injectio (10/09/19 17:45) Medications Given in ED Current Medications Medications Dose Ordered Sig/Kalyn Route Start Time Stop Time Status Last Admin Dose Admin Ketorolac Tromethamine 60 mg ONCE ONCE IM 10/09/19 17:45 10/09/19 17:46 DC 10/09/19 17:53 60 MG Orphenadrine Citrate 60 mg ONCE ONCE IM 10/09/19 17:45 10/09/19 17:46 DC 10/09/19 17:53 60 MG Vital Signs/I&O 10/09/19 17:39 Temp 36.7 Pulse 83 Resp 18 B/P (MAP) 124/101 (109) Pulse Ox 96 O2 Delivery Room Air Capillary Refill : Departure Impression Primary Impression: Chronic back pain Qualified Codes: M54.5 - Low back pain; G89.29 - Other chronic pain Disposition: 01 HOME, SELF-CARE Condition: Stable Departure-Patient Inst. Decision time for Depature: 18:00 Referrals: ALFREDO LEON MD (PCP/Family) Primary Care Physician Patient Instructions: Low Back Pain (DC) Scripts Hydrocodone Bit/Acetaminophen (Hydrocodone/Acetaminophen 5/325mg Tablet) 1 Tab Tab 1 EACH PO Q4-6HR PRN for PAIN-MODERATE MDD 10 for 3 Days, #12 TAB Prov: LAKSHMI ZEE MD 10/09/19 LAKSHMI ZEE MD Oct 09, 2019 17:43
[2019-10-09] MEDS ORDERED: ORPHENADRINE 60 MG/2 ML (NORFLEX) AMP IM ONE (17:45)
[2019-10-09] MEDS ORDERED: KETOROLAC 60 MG/2 ML VIAL IM ONE (17:45)
[2019-10-09] MEDS ORDERED: ACHD5005 PO (18:02)
[2019-10-09] MEDS ORDERED: TRM50T PO (18:06)
[2019-10-09 18:12] VITALS: BP 118/72
== END 2019-10-09 18:10 | disposition home or self-care (01) ==
LOC: EDUNIT# 17:28 → ER FS 17:29
DX: G89.29 Other chronic pain (principal); M54.5 Low back pain; I10 Essential (primary) hypertension; E11.9 Type 2 diabetes mellitus without complications; Z98.890 Other specified postprocedural states; Z88.5 Allergy status to narcotic agent; Z88.2 Allergy status to sulfonamides; Z77.22 Contact with and (suspected) exposure to environmental tobacco smoke (acute) (chronic); Z90.49 Acquired absence of other specified parts of digestive tract; Z90.710 Acquired absence of both cervix and uterus
CPT/HCPCS: 99284

== ENCOUNTER 2019-10-28 09:29 | Emergency (ER) | payer MEDICARE, MEDICAID ==
[~2019-10-28] VITALS: Ht 160 cm; Wt 73.2 kg
[~2019-10-28 09:29] MED LIST changes: +ACHD5005 PO
--- NOTE | 2019-10-28 09:39 | ED General ---
General Stated Complaint: ABD LAB RESULTS Source of Information: Patient Exam Limitations: No Limitations History of Present Illness Date Seen by Provider: Oct 28, 2019 Time Seen by Provider: 09:37 Initial Comments 64-year-old female is here because she was called by her primary told to come to the ER. Patient has a history of low potassium and have labs drawn 3 days ago. Patient reports he tried a car 2 days ago but can get a hold of her and then called her this morning and told her to come to the ER for some potassium. Patient does not know how low it is. She is on Macrobid on potassium. She takes hydrochlorothiazide. She has no complaints at this time. Allergies and Home Medications Allergies Coded Allergies: codeine (Verified Allergy, Intermediate, itching, nausea and vomiting., 01/17/19) morphine (Verified Allergy, Intermediate, itching, nausea and vomiting, 01/17/19) Sulfa (Sulfonamide Antibiotics) (Verified Allergy, Unknown, 01/17/19) Home Medications Atorvastatin Calcium 10 Mg Tablet, 10 MG PO HS, (Reported) Chlorthalidone 25 Mg Tablet, 25 MG PO DAILY, (Reported) Dicyclomine HCl 20 Mg Tablet, 20 MG PO QID, (Reported) Lisinopril 20 Mg Tablet, 20 MG PO DAILY, (Reported) Magnesium Oxide 400 Mg Tablet, 400 MG PO BID, (Reported) Metoclopramide HCl 5 Mg Tablet, 5 MG PO ACHS, (Reported) Omeprazole 20 Mg Tablet.dr, 20 MG PO DAILY, (Reported) Oseltamivir Phosphate 75 Mg Cap, 75 MG PO BID Prescribed by: ELMER VALERIO on 09/08/19 1100 Potassium Chloride 20 Meq Tablet.er, 20 MEQ PO DAILY, (Reported) Potassium Chloride 20 Meq Tab.er.prt, 40 MEQ PO DAILY Prescribed by: ELMER VALERIO on 10/28/19 1022 Tramadol HCl 50 Mg Tablet, 50 MG PO Q6H PRN for PAIN Prescribed by: LAKSHMI ZEE on 10/09/19 1806 Venlafaxine HCl 150 Mg Cap.er.24h, 150 MG PO DAILY, (Reported) Patient Home Medication List Home Medication List Reviewed: Yes Review of Systems Review of Systems Constitutional: no symptoms reported EENTM: no symptoms reported Respiratory: no symptoms reported Cardiovascular: no symptoms reported Gastrointestinal: no symptoms reported Genitourinary: no symptoms reported Musculoskeletal: no symptoms reported Skin: no symptoms reported Past Hqcnryd-Dyaknd-Kwggmq Hx Past Med/Social Hx: Reviewed Nursing Past Med/Soc Hx Patient Social History Type Used: Cigarettes 2nd Hand Smoke Exposure: Yes Recent Foreign Travel: No Recent Hopitalizations: No Immunizations Up To Date Date of Influenza Vaccine: Jun 25, 2019 Seasonal Allergies Seasonal Allergies: No Past Medical History Surgeries: Yes (knee arth bilat, right shoulder; back) Appendectomy, Gallbladder, Hysterectomy, Orthopedic Respiratory: No Cardiac: Yes (low potassium, low magnesium) Hypertension Neurological: No Sexually Transmitted Disease: No HIV/AIDS: No Genitourinary: No Gastrointestinal: Yes (EPIGASTRIC PAIN, N/V) Musculoskeletal: No Endocrine: No Diabetes, Non-Insulin dep HEENT: No (GLASSES) Loss of Vision: Bilateral Hearing Impairment: Denies Cancer: No Psychosocial: No Integumentary: No Blood Disorders: No Physical Exam Vital Signs Vital Signs - First Documented 10/28/19 09:38 Temp 36.1 Pulse 71 Resp 18 B/P (MAP) 132/78 (96) Pulse Ox 97 O2 Delivery Room Air Capillary Refill : Height, Weight, BMI Height: 5'4.00" Weight: 178lbs. 0.0oz. 80.140848sm; 27.00 BMI Method:Stated General Appearance: No Apparent Distress, WD/WN Neck: Non Tender, Supple Respiratory: Lungs Clear, Normal Breath Sounds Cardiovascular: Regular Rate, Rhythm, No Edema Gastrointestinal: Non Tender, Soft Extremity: Normal Capillary Refill, Normal Range of Motion Neurologic/Psychiatric: Alert, Oriented x3, No Motor/Sensory Deficits, Normal Mood/Affect, internet sales consultant II-XII Norm as Tested Skin: Normal Color, Warm/Dry Progress/Results/Core Measures Suspected Sepsis SIRS Temperature: Pulse: Respiratory Rate: Blood Pressure / Mean: Laboratory Tests 10/28/19 09:45: Creatinine 0.75 Results/Orders Lab Results Laboratory Tests Test 10/28/19 09:45 Range/Units Sodium Level 142 135-145 MMOL/L Potassium Level 2.4 *L 3.6-5.0 MMOL/L Chloride Level 98 98-107 MMOL/L Carbon Dioxide Level 30 21-32 MMOL/L Anion Gap 14 5-14 MMOL/L Blood Urea Nitrogen 8 7-18 MG/DL Creatinine 0.75 0.60-1.30 MG/DL Estimat Glomerular Filtration Rate > 60 BUN/Creatinine Ratio 11 Glucose Level 108 H 70-105 MG/DL Calcium Level 9.1 8.5-10.1 MG/DL Magnesium Level 1.6 1.6-2.4 MG/DL My Orders Orders - ELMER VALERIO DO Basic Metabolic Panel (10/28/19 09:36) Magnesium (10/28/19 09:36) Potassium Chloride (Tablet) (K Dur Table (10/28/19 10:15) Potassium Chloride (Tablet) (K Dur Table (10/28/19 10:30) Vital Signs/I&O 10/28/19 09:38 Temp 36.1 Pulse 71 Resp 18 B/P (MAP) 132/78 (96) Pulse Ox 97 O2 Delivery Room Air Capillary Refill : Progress Note : Time: 10:18 Progress Note Patient's potassium was 2.4 today down from 2.5 on 10/26. Patient was offered 20 mEq IV potassium along with 40 mEq by mouth with a recheck. Patient reports that she would prefer just to get a pill and go home. Patient understands risks. I did discuss with her that she needs to take another 40 mEq of potassium tonight. That she needs to take 40 mEq daily 1 week and follow-up with her primary care provider for recheck. Patient to be discharged home in stable condition on her request. Departure Impression Primary Impression: Chronic hypokalemia Disposition: 01 HOME, SELF-CARE Condition: Stable Departure-Patient Inst. Referrals: ALFREDO LEON MD (PCP/Family) Primary Care Physician Patient Instructions: Hypokalemia (DC) Add. Discharge Instructions: Follow-up with your primary care provider and 3-4 days for recheck every lab. Take potassium and magnesium as prescribed Emergency department focuses on treating and ruling out life-threatening diseases. Whenever possible, a diagnosis is given. However, most patients are given an impression based on their history, physical exam, and workup during your brief time in the ER. Information about probable diagnosis and other educational material has been provided. Please take the time to read and understand this information. It is very important that you follow up with a physician as discussed during the visit today. Failure to adhere to your follow-up instructions may lead to severe disability, injury, or so please make sure to keep your appointments or obtain one as requested. Please keep in mind the emergency department is not designed to your primary care or "family doctor" and nonurgent issues are best evaluated by an outpatient physician Scripts Potassium Chloride (Potassium Chloride) 20 Meq Tab.er.prt 40 MEQ PO DAILY for 7 Days, #14 EA Prov: ELMER VALERIO DO 10/28/19 ELMER VALERIO DO Oct 28, 2019 09:38
[2019-10-28 10:12] LABS: SODIUM 142 MMOL/L (135-145)
[2019-10-28 10:14] LABS: BUN/CREATININE RATIO 11; CALCIUM 9.1 MG/DL (8.5-10.1); CARBON DIOXIDE 30 MMOL/L (21-32); CHLORIDE 98 MMOL/L (98-107); CREATININE SERUM 0.75 MG/DL (0.60-1.30); GFR ESTIMATED > 60; GLUCOSE 108 MG/DL (70-105); MAGNESIUM 1.6 MG/DL (1.6-2.4); POTASSIUM 2.4 MMOL/L (3.6-5.0)
[2019-10-28] MEDS ORDERED: KCL 20 MEQ TAB (K-DUR) PO ONE ×2 (10:15→10:30)
[2019-10-28] MEDS ORDERED: POTA20TA15 PO (10:22)
--- NOTE | 2019-10-28 10:23 | NUR ---
THE PT REFUSED POTASSIUM IV AND SIGNED A REFUSAL TO [facility] AT 1020 ON 10/28/2019. ORAL POTASSIUM ORDERED BY DR. VALERIO INSTEAD DUE TO THE REFUSAL OF IV K+.
[2019-10-28 10:36] VITALS: BP 128/72
--- OUTSIDE RECORDS SUMMARY | 2019-11-05 10:08 | XMS REPORT ---
Author Author Kaylie LEON Organization [facility] Address [address] [place] [address] Care Team Providers Care Wreath Maker Name Role Phone ALFREDO LEON Unavailable PROBLEMS Type Condition ICD9-CM Code [id number] Code Onset Dates Condition S tatus SNOMED Code Problem Rotator cuff tendinitis, right M75.81 15 Sep, 019 0 Problem Intractable migraine without aura and without st atus migrainosus G43.019 Active 518125078 Problem Chronic hepatitis C without hepatic coma B18.2 Active 860999898 Problem Type 2 diabetes mellitus wit h neurologic complication, without long-term current use of insulin E11.49 January, 0 77924 6000 Problem Non-intractable cyclical vomiting with nausea G43. A0 Active 93687719 Problem History of hepatitis C Z86.19 January, 0 [id number] Problem Hypomagnesemia E83.42 Active 16905 5004 Problem Adhesive capsulitis of right shoulder M75.01 Sep, 0 [id number] Problem Pure hypercholesterolemia E78.00 Acti ve 014726975 Problem Essential hypertension I10 Active 07039589 Problem Abdominal aortic aneurysm (AAA) without rupture I7 1.4 Active 23728532 Problem Abdominal aortic aneurysm (AAA) without rupture I7 1.4 Active 19577324 ALLERGIES No Information ENCOUNTERS Encounter Location Date Diagnosis [address] [place] [address] Oct, [address] [place] [address] Sep, Essential hypertension I10 ; Nicotine dependence, cigarettes, uncomplicated F17.210 ; Type 2 diabetes mellitus with neurologic complication, without long-term current use of insulin E11.49 ; Pure hyperc holesterolemia E78.00 and Hypomagnesemia E83.[address] [place] [address] Aug, [facility] [address] [place] [address] Aug, [facility] [address] [place] [address] Aug, [facility] [address] [place] [address] Aug, Epigastric pain R10.13 and L ower back pain M54.5 [facility] [address] [place] [address] Jul, Essential hypertension I10 [facility] [address] [place] [address] Jul, [facility] [address] [place] [address] Jun, [facility] [address] [place] [address] May, [facility] [address] [place] [address] May, [facility] [address] [place] [address] May, Abdominal aortic aneurysm (A AA) without rupture I71.4 ; Generalized abdominal pain R10.84 ; Nicotine dependence, cigarettes, uncomplicated F17.210 ; Type 2 diabetes mellitus with neurologic complication, without long-term current use of insulin E11.49 and Encounter for immunization Z23 [facility] [address] [place] [address] May, Acute superficial gastritis without hemorrhage K29.00 [facility] [address] [place] [address] May, Acute cystitis without hemat uria N30.00 and UTI symptoms R39.9 [facility] [address] [place] [address] May, Non-intractable cyclical vom iting with nausea G43.A0 and Acute superficial gastritis without hemorrhage K29.00 [address] [place] [address] May, HLD (hyperlipidemia) E78.5 [address] [place] [address] Apr, Acute superficial gastritis without hemorrhage K29.00 and Non-intractable cyclical vomiting with nausea G43.A0 [address] [place] [address] Apr, Epigastric pain R10.13 and D ehydration E86.0 [facility] [address] [place] [address] Apr, Acute superficial gastritis without hemorrhage K29.00 and Non-intractable cyclical vomiting with nausea G43.A0 [address] [place] [address] Apr, HLD (hyperlipidemia) E78.5 a nd Type 2 diabetes mellitus with neurologic complication, without long-term current use of insulin E11.49 [address] [place] [address] Mar, [facility] [address] [place] [address] January, [address] [place] [address] January, Screening mammogram, encount er for Z12.31 [address] [place] [address] January, HLD (hyperlipidemia) E78.5 ; History of hepatitis C Z86.19 ; Type 2 diabetes mellitus with neurologic complication, without long- term current use of insulin E11.49 and Essential hypertension I10 [address] [place] [address] Dec, [facility] [address] [place] [address] Dec, [facility] [address] [place] [address] Dec, [facility] [address] [place] [address] Dec, [facility] [address] [place] [address] Dec, Epigastric pain R10.13 ; Parker ious vomiting with nausea R11.14 and Hypokalemia E87.6 [facility] [address] [place] [address] Dec, [facility] [address] [place] [address] Nov, Acute cystitis without hemat uria N30.00 [facility] [address] [place] [address] Nov, [facility] [address] [place] [address] Nov, Nausea & vomiting R11.2 [facility] [address] [place] [address] Nov, [facility] [address] [id number] [place] [address] Oct, Essential hypertension I10 [facility] [address] [place] [address] Oct, Essential hypertension I10 a nd Type 2 diabetes mellitus without complication, without long-term current use of insulin E11.9 [facility] [address] [place] [address] Oct, Impingement syndrome of righ t shoulder M75.41 ; Essential hypertension I10 ; Pure hypercholesterolemia E78.00 ; Type 2 diabetes mellitus without complication, without long-term current use of insulin E11.9 and Chronic hepatitis C without hepatic coma B18.2 [facility] [address] [id number] [place] [address] Oct, [facility] [address] [place] [address] 04 Oct, 2018 Intractable migraine without aura and without status migrainosus G43.019 [facility] [address] [id number] [place] [address] Sep, [facility] [id number] [place] [address] Aug, [facility] [id number] [place] [address] Aug, [facility] [address] [id number] [place] [address] Aug, [facility] [address] [id number] [place] [address] Jul, IMMUNIZATIONS No Known Immunizations SOCIAL HISTORY Never Assessed REASON FOR VISIT request return call PLAN OF CARE VITAL SIGNS MEDICATIONS Unknown Medications RESULTS No Results PROCEDURES No Known procedures [...]
--- OUTSIDE RECORDS SUMMARY | 2019-11-05 10:09 | XMS REPORT | Continuity of Care Document ---
Author Organization Unknown Address Unknown Phone Unavailable Allergies Active Description Code Type Severity Reaction Onset Reported/Identified Relationship to Patient Clinical Status Yes SULFA SULFA Moderate itching, nausea 12/10/2018 Yes codeine [id number] Drug Allergy Moderate itching, nausea 01/17/2019 Yes morphine [id number] Drug Allergy Moderate itching, nausea 01/17/2019 Yes Sulfa (Sulfonamide Antibiotics) [id number] Drug Allergy Unknown N/A 019 Medications There is no data. Problems Date Dx Coded Attending Type Code Diagnosis Diagnosed By 12/10/2018 SONNY SALDANA MD, Ot N39.0 URINARY TRACT INFECTION, SITE NOT SPECIF 12/10/2018 SONNY SALDANA MD Ot R11.2 NAUSEA WITH VOMITING, UNSPECIFIED 12/10/2018 SONNY SALDANA MD, Ot Z88.2 ALLERGY STATUS TO SULFONAMIDES STATUS 12/10/2018 SONNY SALDANA MD Ot Z88.5 ALLERGY STATUS TO NARCOTIC AGENT STATUS 12/12/2018 SONNY SALDANA MD, Ot N39.0 URINARY TRACT INFECTION, SITE NOT SPECIF 12/12/2018 SONNY SALDANA MD Ot R11.2 NAUSEA WITH VOMITING, UNSPECIFIED 12/12/2018 SONNY SALDANA MD, Ot Z88.2 ALLERGY STATUS TO SULFONAMIDES STATUS 12/12/2018 SONNY SALDANA MD Ot Z88.5 ALLERGY STATUS TO NARCOTIC AGENT STATUS 01/01/2019 PAUL NATHAN DO Ot E87.6 HYPOKALEMIA 01/01/2019 PAUL NATHAN DO Ot I10 ESSENTIAL (PRIMARY) HYPERTENSION 01/01/2019 PAUL NATHAN DO Ot R10.13 EPIGASTRIC PAIN 01/01/2019 PAUL NATHAN DO Ot R11.2 NAUSEA WITH VOMITING, UNSPECIFIED 01/01/2019 PAUL NATHAN DO, Ot Z77.22 CNTCT W AND EXPSR TO ENVIRON TOBACCO SMO 01/01/2019 PAUL NATHAN DO Ot Z88.2 ALLERGY STATUS TO SULFONAMIDES STATUS 01/01/2019 NATHAN DO, PAUL Ot Z88.5 ALLERGY STATUS TO NARCOTIC AGENT STATUS 01/01/2019 NATHAN DO, PAUL Ot Z90.49 ACQUIRED ABSENCE OF OTHER SPECIFIED PART 01/01/2019 NATHAN DO PAUL Ot Z90.710 ACQUIRED ABSENCE OF BOTH CERVIX AND UTER 01/13/2019 SUZE DO, JASSI Nguyen Ot E11.9 TYPE 2 DIABETES MELLITUS WITHOUT COMPLIC 01/13/2019 SUZE DO, JASSI Nguyen Ot E87.6 HYPOKALEMIA 01/13/2019 SUZE DO, JASSI Nguyen Ot I1 0 ESSENTIAL (PRIMARY) HYPERTENSION 01/13/2019 SUZE DO, JASSI Nguyen Ot N39.0 URINARY TRACT INFECTION, SITE NOT SPECIF 01/13/2019 SUZE DO, JASSI Nguyen Ot R11.10 VOMITING, UNSPECIFIED 01/13/2019 SUZE DO, JASSI Nguyen Ot Z88.2 ALLERGY STATUS TO SULFONAMIDES STATUS 01/13/2019 SUZE DO, JASSI Nguyen Ot Z88.5 ALLERGY STATUS TO NARCOTIC AGENT STATUS 01/13/2019 SUZE DO, JASSI Nguyen Ot Z90.49 ACQUIRED ABSENCE OF OTHER SPECIFIED PART 01/13/2019 SUZE DO, JASSI Nguyen Ot Z90.710 ACQUIRED ABSENCE OF BOTH CERVIX AND UTER 01/13/2019 SUZE DO, JASSI Nguyen Ot Z98.890 OTHER SPECIFIED POSTPROCEDURAL STATES 01/15/2019 SUZE DO, JASSI Nguyen Ot E11.9 TYPE 2 DIABETES MELLITUS WITHOUT COMPLIC 01/15/2019 SUZE DO, JASSI Nguyen Ot E87.6 HYPOKALEMIA 01/15/2019 SUZE DO, JASSI Nguyen Ot I1 0 ESSENTIAL (PRIMARY) HYPERTENSION 01/15/2019 SUZE DO, JASSI Nguyen Ot N39.0 URINARY TRACT INFECTION, SITE NOT SPECIF 01/15/2019 SUZE DO, JASSI Nguyen Ot R11.10 VOMITING, UNSPECIFIED 01/15/2019 SUZE DO, JASSI Nguyen Ot Z88.2 ALLERGY STATUS TO SULFONAMIDES STATUS 01/15/2019 SUZE DO, JASSI Nguyen Ot Z88.5 ALLERGY STATUS TO NARCOTIC AGENT STATUS 01/15/2019 SUZE DO, JASSI Nguyen Ot Z90.49 ACQUIRED ABSENCE OF OTHER SPECIFIED PART 01/15/2019 SUZE DO, JASSI Nguyen Ot Z90.710 ACQUIRED ABSENCE OF BOTH CERVIX AND UTER 01/15/2019 SUZE DO, JASSI Nguyen Ot Z98.890 OTHER SPECIFIED POSTPROCEDURAL STATES 01/15/2019 JASSI ARCINIEGA DO Ot E11.9 TYPE 2 DIABETES MELLITUS WITHOUT COMPLIC 01/15/2019 JASSI ARCINIEGA DO Ot E87.6 HYPOKALEMIA 01/15/2019 JASSI ARCINIEGA DO, Ot I1 0 ESSENTIAL (PRIMARY) HYPERTENSION 01/15/2019 JASSI ARCINIEGA DO, Ot N39.0 URINARY TRACT INFECTION, SITE NOT SPECIF 01/15/2019 JASSI ARCINIEGA DO, Ot R11.10 VOMITING, UNSPECIFIED 01/15/2019 JASSI ARCINIEGA DO, Ot Z88.2 ALLERGY STATUS TO SULFONAMIDES STATUS 01/15/2019 JASSI ARCINIEGA DO, Ot Z88.5 ALLERGY STATUS TO NARCOTIC AGENT STATUS 01/15/2019 JASSI ARCINIEGA DO, Ot Z90.49 ACQUIRED ABSENCE OF OTHER SPECIFIED PART 01/15/2019 JASSI ARCINIEGA DO, Ot Z90.710 ACQUIRED ABSENCE OF BOTH CERVIX AND UTER 01/15/2019 JASSI ARCINIEGA DO, Ot Z98.890 OTHER SPECIFIED POSTPROCEDURAL STATES 01/18/2019 NAA BALDERRAMA DO Ot Z01.8 18 ENCOUNTER FOR OTHER PREPROCEDURAL EXAMIN 01/18/2019 NAA BALDERRAMA DO Ot Z01.8 18 ENCOUNTER FOR OTHER PREPROCEDURAL EXAMIN 01/21/2019 NAA BALDERRAMA DO Ot E66.9 OBESITY, UNSPECIFIED 01/21/2019 NAA BALDERRAMA DO Ot E78.5 HYPERLIPIDEMIA, UNSPECIFIED 01/21/2019 NAA BALDERRAMA DO Ot F17.2 10 NICOTINE DEPENDENCE, CIGARETTES, UNCOMPL 01/21/2019 NAA BALDERRAMA DO Ot I10 ESSENTIAL (PRIMARY) HYPERTENSION 01/21/2019 NAA BALDERRAMA DO Ot J44.9 CHRONIC OBSTRUCTIVE PULMONARY DISEASE, U 01/21/2019 NAA BALDERRAMA DO Ot K29.7 0 GASTRITIS, UNSPECIFIED, WITHOUT BLEEDING 01/21/2019 NAA BALDERRAMA DO Ot K31.8 9 OTHER DISEASES OF STOMACH AND DUODENUM 01/21/2019 NAA BALDERRAMA DO Ot K44.9 DIAPHRAGMATIC HERNIA WITHOUT OBSTRUCTION 01/21/2019 NAA BALDERRAMA DO Ot Z68.3 0 BODY MASS INDEX (BMI) 30.0-30.9, ADULT 01/21/2019 DELMAN DO, NAA B Ot Z79.8 99 OTHER PLACER MINER (CURRENT) DRUG THERAPY 01/21/2019 TACOS GOVEA NAA B Ot Z88.2 ALLERGY STATUS TO SULFONAMIDES STATUS 01/21/2019 TACOS GOVEA NAA B Ot Z88.5 ALLERGY STATUS TO NARCOTIC AGENT STATUS 01/24/2019 TACOS GOVEA, NAA B Ot E66.9 OBESITY, UNSPECIFIED 01/24/2019 TACOS GOVEA, NAA B Ot E78.5 HYPERLIPIDEMIA, UNSPECIFIED 01/24/2019 TACOS GOVEA, NAA B Ot F17.2 10 NICOTINE DEPENDENCE, CIGARETTES, UNCOMPL 01/24/2019 TACOS GOVEA, NAA B Ot I10 ESSENTIAL (PRIMARY) HYPERTENSION 01/24/2019 TACOS GOVEA, NAA B Ot J44.9 CHRONIC OBSTRUCTIVE PULMONARY DISEASE, U 01/24/2019 TACOS GOVEA, NAA B Ot K29.7 0 GASTRITIS, UNSPECIFIED, WITHOUT BLEEDING 01/24/2019 TACOS GOVEA, NAA B Ot K31.8 9 OTHER DISEASES OF STOMACH AND DUODENUM 01/24/2019 TACOS GOVEA NAA B Ot K44.9 DIAPHRAGMATIC HERNIA WITHOUT OBSTRUCTION 01/24/2019 TACOS GOEVA, NAA B Ot Z68.3 0 BODY MASS INDEX (BMI) 30.0-30.9, ADULT 01/24/2019 TACOS GOVEA NAA B Ot Z79.8 99 OTHER PLACER MINER (CURRENT) DRUG THERAPY 01/24/2019 TACOS GOVEA NAA B Ot Z88.2 ALLERGY STATUS TO SULFONAMIDES STATUS 01/24/2019 TACOS GOVEA NAA B Ot Z88.5 ALLERGY STATUS TO NARCOTIC AGENT STATUS 01/24/2019 TACOS GOVEA NAA B Ot E66.9 OBESITY, UNSPECIFIED 01/24/2019 TACOS GOVEA, NAA B Ot E78.5 HYPERLIPIDEMIA, UNSPECIFIED 01/24/2019 TACOS GOVEA, NAA B Ot F17.2 10 NICOTINE DEPENDENCE, CIGARETTES, UNCOMPL 01/24/2019 TACOS DO, NAA B Ot I10 ESSENTIAL (PRIMARY) HYPERTENSION 01/24/2019 TACOS GOVEA, NAA B Ot J44.9 CHRONIC OBSTRUCTIVE PULMONARY DISEASE, U 01/24/2019 TACOS DO, NAA B Ot K29.7 0 GASTRITIS, UNSPECIFIED, WITHOUT BLEEDING 01/24/2019 TACOS GOVEA, NAA B Ot K31.8 9 OTHER DISEASES OF STOMACH AND DUODENUM 01/24/2019 TACOS GOVEA NAA B Ot K44.9 DIAPHRAGMATIC HERNIA WITHOUT OBSTRUCTION 01/24/2019 WALDO BALDERRAMA DOIC B Ot Z68.3 0 BODY MASS INDEX (BMI) 30.0-30.9, ADULT 01/24/2019 WALDO BALDERRAMA DOIC B Ot Z79.8 99 OTHER USP (CURRENT) DRUG THERAPY 01/24/2019 WALDO BALDERRAMA DOIC B Ot Z88.2 ALLERGY STATUS TO SULFONAMIDES STATUS 01/24/2019 WALDO BALDERRAMA DOIC B Ot Z88.5 ALLERGY STATUS TO NARCOTIC AGENT STATUS 01/27/2019 TACOS GOVEA NAA B Ot E66.9 OBESITY, UNSPECIFIED 01/27/2019 WALDO BALDERRAMA DOIC B Ot E78.5 HYPERLIPIDEMIA, UNSPECIFIED 01/27/2019 TACOS GOVEA, NAA B Ot F17.2 10 NICOTINE DEPENDENCE, CIGARETTES, UNCOMPL 01/27/2019 TACOS GOVEA, NAA B Ot I10 ESSENTIAL (PRIMARY) HYPERTENSION 01/27/2019 WALDO BALDERRAMA DOIC B Ot J44.9 CHRONIC OBSTRUCTIVE PULMONARY DISEASE, U 01/27/2019 TACOS GOVEA NAA B Ot K29.7 0 GASTRITIS, UNSPECIFIED, WITHOUT BLEEDING 01/27/2019 WALDO BALDERRAMA DOIC B Ot K31.8 9 OTHER DISEASES OF STOMACH AND DUODENUM 01/27/2019 WALDO BALDERRAMA DOIC B Ot K44.9 DIAPHRAGMATIC HERNIA WITHOUT OBSTRUCTION 01/27/2019 WALDO BALDERRAMA DOIC B Ot Z68.3 0 BODY MASS INDEX (BMI) 30.0-30.9, ADULT 01/27/2019 WALDO BALDERRAMA DOIC B Ot Z79.8 99 OTHER USP (CURRENT) DRUG THERAPY 01/27/2019 WALDO BALDERRAMA DOIC B Ot Z88.2 ALLERGY STATUS TO SULFONAMIDES STATUS 01/27/2019 WALDO BALDERRAMA DOIC B Ot Z88.5 ALLERGY STATUS TO NARCOTIC AGENT STATUS 05/26/2019 CAMERON PEÑA MD Ot E11. 9 TYPE 2 DIABETES MELLITUS WITHOUT COMPLIC 05/26/2019 CAMERON PEÑA MD Ot F17.210 NICOTINE DEPENDENCE, CIGARETTES, UNCOMPL 05/26/2019 CAMERON PEÑA MD Ot I10 ESSENTIAL (PRIMARY) HYPERTENSION 05/26/2019 CAMERON PEÑA MD Ot I71. 4 ABDOMINAL AORTIC ANEURYSM, WITHOUT RUPTU 05/26/2019 CAMERON PEÑA MD Ot K29. 70 GASTRITIS, UNSPECIFIED, WITHOUT BLEEDING 05/26/2019 CAMERON PEÑA MD Ot R11. 2 NAUSEA WITH VOMITING, UNSPECIFIED 05/26/2019 CAMERON PEÑA MD Ot Z88. 2 ALLERGY STATUS TO SULFONAMIDES STATUS 05/26/2019 CAMERON PEÑA MD Ot Z88. 5 ALLERGY STATUS TO NARCOTIC AGENT STATUS 05/26/2019 CAMERON PEÑA MD Ot Z90. 49 ACQUIRED ABSENCE OF OTHER SPECIFIED PART 05/26/2019 CAMERON PEÑA MD Ot Z90.710 ACQUIRED ABSENCE OF BOTH CERVIX AND UTER 05/30/2019 CAMERON PEÑA MD Ot E11. 9 TYPE 2 DIABETES MELLITUS WITHOUT COMPLIC 05/30/2019 CAMERON PEÑA MD Ot F17.210 NICOTINE DEPENDENCE, CIGARETTES, UNCOMPL 05/30/2019 CAMERON PEÑA MD Ot I10 ESSENTIAL (PRIMARY) HYPERTENSION 05/30/2019 CAMERON PEÑA MD Ot I71. 4 ABDOMINAL AORTIC ANEURYSM, WITHOUT RUPTU 05/30/2019 CAMERON PEÑA MD Ot K29. 70 GASTRITIS, UNSPECIFIED, WITHOUT BLEEDING 05/30/2019 CAMERON PEÑA MD Ot R11. 2 NAUSEA WITH VOMITING, UNSPECIFIED 05/30/2019 CAMERON PEÑA MD Ot Z88. 2 ALLERGY STATUS TO SULFONAMIDES STATUS 05/30/2019 CAMERON PEÑA MD Ot Z88. 5 ALLERGY STATUS TO NARCOTIC AGENT STATUS 05/30/2019 CAMERON PEÑA MD Ot Z90. 49 ACQUIRED ABSENCE OF OTHER SPECIFIED PART 05/30/2019 CAMERON PEÑA MD Ot Z90.710 ACQUIRED ABSENCE OF BOTH CERVIX AND UTER 06/02/2019 RAHUL WEATHERS DO Ot E11 .9 TYPE 2 DIABETES MELLITUS WITHOUT COMPLIC 06/02/2019 RAHUL WEATHERS DO Ot I10 ESSENTIAL (PRIMARY) HYPERTENSION 06/02/2019 RAHUL WEATHERS DO Ot R10 .9 UNSPECIFIED ABDOMINAL PAIN 06/02/2019 RAHUL WEATHERS DO Ot Z77.22 CNTCT W AND EXPSR TO ENVIRON TOBACCO SMO 06/02/2019 RAHUL WEATHERS DO Ot Z88 .2 ALLERGY STATUS TO SULFONAMIDES STATUS 06/02/2019 RAHUL WEATHERS DO Ot Z88 .5 ALLERGY STATUS TO NARCOTIC AGENT STATUS 06/02/2019 RAHUL WEATHERS DO Ot Z90.49 ACQUIRED ABSENCE OF OTHER SPECIFIED PART 06/02/2019 RAHUL WEATHERS DO Ot Z90.710 ACQUIRED ABSENCE OF BOTH CERVIX AND UTER 06/05/2019 RAHUL WEATHERS DO Ot E11 .9 TYPE 2 DIABETES MELLITUS WITHOUT COMPLIC 06/05/2019 RAHUL WEATHERS DO Ot I10 ESSENTIAL (PRIMARY) HYPERTENSION 06/05/2019 RAHUL WEATHERS DO Ot R10 .9 UNSPECIFIED ABDOMINAL PAIN 06/05/2019 RAHUL WEATHERS DO Ot Z77.22 CNTCT W AND EXPSR TO ENVIRON TOBACCO SMO 06/05/2019 RAHUL WEATHERS DO Ot Z88 .2 ALLERGY STATUS TO SULFONAMIDES STATUS 06/05/2019 RAHUL WEATHERS DO Ot Z88 .5 ALLERGY STATUS TO NARCOTIC AGENT STATUS 06/05/2019 RAHUL WEATHERS DO Ot Z90.49 ACQUIRED ABSENCE OF OTHER SPECIFIED PART 06/05/2019 RAHUL WEATHERS DO Ot Z90.710 ACQUIRED ABSENCE OF BOTH CERVIX AND UTER 06/28/2019 CAMERON PEÑA MD Ot E11. 9 TYPE 2 DIABETES MELLITUS WITHOUT COMPLIC 06/28/2019 CAMERON PEÑA MD Ot F17.210 NICOTINE DEPENDENCE, CIGARETTES, UNCOMPL 06/28/2019 CAMERON PEÑA MD Ot I10 ESSENTIAL (PRIMARY) HYPERTENSION 06/28/2019 CAMERON PEÑA MD Ot I71. 4 ABDOMINAL AORTIC ANEURYSM, WITHOUT RUPTU 06/28/2019 CAMERON PEÑA MD Ot K29. 70 GASTRITIS, UNSPECIFIED, WITHOUT BLEEDING 06/28/2019 CAMERON PEÑA MD Ot R11. 2 NAUSEA WITH VOMITING, UNSPECIFIED 06/28/2019 CAMERON PEÑA MD Ot Z88. 2 ALLERGY STATUS TO SULFONAMIDES STATUS 06/28/2019 CAMERON PEÑA MD Ot Z88. 5 ALLERGY STATUS TO NARCOTIC AGENT STATUS 06/28/2019 CAMERON PEÑA MD Ot Z90. 49 ACQUIRED ABSENCE OF OTHER SPECIFIED PART 06/28/2019 CAMERON PEÑA MD Ot Z90.710 ACQUIRED ABSENCE OF BOTH CERVIX AND UTER 09/08/2019 VALERIO DO, ELMER L Ot E11.9 TYPE 2 DIABETES MELLITUS WITHOUT COMPLIC 09/08/2019 VALERIO DO, ELMER L Ot F17.2 10 NICOTINE DEPENDENCE, CIGARETTES, UNCOMPL 09/08/2019 VALERIO DO, ELMER L Ot I10 ESSENTIAL (PRIMARY) HYPERTENSION 09/08/2019 VALERIO DO, ELMER L Ot J10.1 FLU DUE TO OTH IDENT INFLUENZA VIRUS W O 09/08/2019 VALERIO DO, ELMER L Ot R07.9 CHEST PAIN, UNSPECIFIED 09/08/2019 VALERIO DO, ELMER L Ot Z88.2 ALLERGY STATUS TO SULFONAMIDES STATUS 09/08/2019 VALERIO DO, ELMER L Ot Z88.5 ALLERGY STATUS TO NARCOTIC AGENT STATUS 09/08/2019 VALERIO DO, ELMER L Ot Z90.4 9 ACQUIRED ABSENCE OF OTHER SPECIFIED PART 09/08/2019 VALERIO DO, ELMER L Ot Z90.7 10 ACQUIRED ABSENCE OF BOTH CERVIX AND UTER 09/10/2019 VALERIO DO, ELMER L Ot E11.9 TYPE 2 DIABETES MELLITUS WITHOUT COMPLIC 09/10/2019 VALERIO DO, ELMER L Ot F17.2 10 NICOTINE DEPENDENCE, CIGARETTES, UNCOMPL 09/10/2019 VALERIO DO, ELMER L Ot I10 ESSENTIAL (PRIMARY) HYPERTENSION 09/10/2019 VALERIO DO, ELMER L Ot J10.1 FLU DUE TO OTH IDENT INFLUENZA VIRUS W O 09/10/2019 VALERIO DO, ELMER L Ot R07.9 CHEST PAIN, UNSPECIFIED 09/10/2019 VALERIO DO, ELMER L Ot Z88.2 ALLERGY STATUS TO SULFONAMIDES STATUS 09/10/2019 VALERIO DO, ELMER L Ot Z88.5 ALLERGY STATUS TO NARCOTIC AGENT STATUS 09/10/2019 VALERIO DO, ELMER L Ot Z90.4 9 ACQUIRED ABSENCE OF OTHER SPECIFIED PART 09/10/2019 VALERIO DO, ELMER L Ot Z90.7 10 ACQUIRED ABSENCE OF BOTH CERVIX AND UTER 10/09/2019 LAKSHMI ZEE MD Ot E11. 9 TYPE 2 DIABETES MELLITUS WITHOUT COMPLIC 10/09/2019 LAKSHMI ZEE MD Ot G89. 29 OTHER CHRONIC PAIN 10/09/2019 LAKSHMI ZEE MD Ot I10 ESSENTIAL (PRIMARY) HYPERTENSION 10/09/2019 LAKSHMI ZEE MD Ot M54. 5 LOW BACK PAIN 10/09/2019 LAKSHMI ZEE MD Ot Z77. 22 CNTCT W AND EXPSR TO ENVIRON TOBACCO SMO 10/09/2019 LAKSHMI ZEE MD Ot Z88. 2 ALLERGY STATUS TO SULFONAMIDES STATUS 10/09/2019 LAKSHMI ZEE MD Ot Z88. 5 ALLERGY STATUS TO NARCOTIC AGENT STATUS 10/09/2019 LAKSHMI ZEE MD Ot Z90. 49 ACQUIRED ABSENCE OF OTHER SPECIFIED PART 10/09/2019 LAKSHMI ZEE MD Ot Z90.710 ACQUIRED ABSENCE OF BOTH CERVIX AND UTER 10/09/2019 LAKSHMI ZEE MD Ot Z98.890 OTHER SPECIFIED POSTPROCEDURAL STATES 10/11/2019 LAKSHMI ZEE MD Ot E11. 9 TYPE 2 DIABETES MELLITUS WITHOUT COMPLIC 10/11/2019 LAKSHMI ZEE MD Ot G89. 29 OTHER CHRONIC PAIN 10/11/2019 LAKSHMI ZEE MD Ot I10 ESSENTIAL (PRIMARY) HYPERTENSION 10/11/2019 LAKSHMI ZEE MD Ot M54. 5 LOW BACK PAIN 10/11/2019 LAKSHMI ZEE MD Ot Z77. 22 CNTCT W AND EXPSR TO ENVIRON TOBACCO SMO 10/11/2019 LAKSHMI ZEE MD Ot Z88. 2 ALLERGY STATUS TO SULFONAMIDES STATUS 10/11/2019 LAKSHMI ZEE MD Ot Z88. 5 ALLERGY STATUS TO NARCOTIC AGENT STATUS 10/11/2019 LAKSHMI ZEE MD Ot Z90. 49 ACQUIRED ABSENCE OF OTHER SPECIFIED PART 10/11/2019 LAKSHMI ZEE MD Ot Z90.710 ACQUIRED ABSENCE OF BOTH CERVIX AND UTER 10/11/2019 LAKSHMI ZEE MD Ot Z98.890 OTHER SPECIFIED POSTPROCEDURAL STATES Procedures There is no data. Results Test Result Range Complete urinalysis with reflex to cultu re - 12/10/18 11:00 Urine color determination DK YELLOW NRG Urine clarity determination SLIGHTLY CLOUDY NRG Urine pH measurement by test strip 5.5 5-9 Specific gravity of urine by test strip >= 1.016-1.022 Urine protein assay by test strip, semi-quantitative TRACE NEGATIVE Urine glucose detection by automated test strip NE GATIVE NEGATIVE Erythrocytes detection in urine sediment by light micr oscopy NEGATIVE NEGATIVE Urine ketones detection by automated test strip NE GATIVE NEGATIVE Urine nitrite detection by test strip NEGATIVE NEGATIVE Urine total bilirubin detection by test strip 1+ NEGATIVE Urine urobilinogen measurement by automated test strip (mass/volume) 0.2 mg/dL NORMAL Urine leukocyte esterase detection by dipstick 1+ NEGATIVE Automated urine sediment erythrocyte cou nt by microscopy (number/high power field) [HPF] NRG Automated urine sediment leukocyte count by microscopy (number/high power field) > [HPF] NRG Bacteria detection in urine sediment by light microsco py FEW NRG Squamous epithelial cells detection in u rine sediment by light microscopy 5-10 NRG Crystals detection in urine sediment by light microsco py NONE NRG Casts detection in urine sediment by light microscopy NONE NRG Mucus detection in urine sediment by light microscopy LARGE NRG Complete urinalysis with reflex to culture YES NRG Bacterial urine culture - 12/10/18 11:00 Bacterial urine culture NG NRG Comprehensive metabolic panel - 12/10/18 11:40 Serum or plasma sodium measurement (moles/volume) 139 mmol/L 135-145 Serum or plasma potassium measurement (moles/volume) 3.7 mmol/L 3.6-5.0 Serum or plasma chloride measurement (moles/volume) 99 mmol/L 98-107 Carbon dioxide 25 mmol/L 21-32 Serum or plasma anion gap determination (moles/volume) 15 mmol/L 5-14 Serum or plasma urea nitrogen measurement (mass/volume ) 10 mg/dL 7-18 Serum or plasma creatinine measurement (mass/volume) 1.11 mg/dL 0.60-1.30 Serum or plasma urea nitrogen/creatinine mass ratio 9 NRG Serum or plasma creatinine measurement w ith calculation of estimated glomerular filtration rate 60 NRG Serum or plasma glucose measurement (mass/volume) 121 mg/dL 70-105 Serum or plasma calcium measurement (mass/volume) 9.9 mg/dL 8.5-10.1 Serum or plasma total bilirubin measurement (mass/volu me) 0.5 mg/dL 0.1-1.0 Serum or plasma alkaline phosphatase harry surement (enzymatic activity/volume) 121 U/L 40-136 Serum or plasma aspartate aminotransfera se measurement (enzymatic activity/volume) 25 U/L 5-34 Serum or plasma alanine aminotransferase measurement (enzymatic activity/volume) 20 U/L 0-55 Serum or plasma protein measurement (mass/volume) 8.9 g/dL 6.4-8.2 Serum or plasma albumin measurement (mass/volume) 4.4 g/dL 3.2-4.5 CALCIUM CORRECTED 9.6 mg/dL 8.5-10.1 Lipase - 12/10/18 11:40 Lipase 12 U/L 8-78 TROPONIN T - 12/10/18 11:40 TROPONIN T 9 % <=10 Magnesium - 12/10/18 11:40 Magnesium 2.0 mg/dL 1.8-2.4 Complete blood count (CBC) with automate d white blood cell (WBC) differential - 12/10/18 11:40 Blood leukocytes automated count (number/volume) 10.3 10*3/uL 4.3-11.0 Blood erythrocytes automated count (number/volume) 5.75 10*6/uL 4.35-5.85 Venous blood hemoglobin measurement (mass/volume) 16.1 g/dL 11.5-16.0 Blood hematocrit (volume fraction) 50 % 35-52 Automated erythrocyte mean corpuscular volume 87 [ foz_us] 80-99 Automated erythrocyte mean corpuscular h emoglobin (mass per erythrocyte) 28 pg 25-34 Automated erythrocyte mean corpuscular h emoglobin concentration measurement (mass/volume) 32 g/dL 32-36 Automated erythrocyte distribution width ratio 14. 6 % 10.0- 14.5 Automated blood platelet count (count/volume) 288 10*3/uL 130-400 Automated blood platelet mean volume measurement 10.6 [foz_us] 7.4-10.4 Automated blood neutrophils/100 leukocytes 70 % 42-75 Automated blood lymphocytes/100 leukocytes 23 % 12-44 Blood monocytes/100 leukocytes 6 % 0-12 Automated blood eosinophils/100 leukocytes 1 % 0-10 Automated blood basophils/100 leukocytes 0 % 0-10 Blood neutrophils automated count (number/volume) 7.2 10*3 1.8-7.8 Blood lymphocytes automated count (number/volume) 2.4 10*3 1.0-4.0 Blood monocytes automated count (number/volume) 0. 6 10*3 0.0-1.0 Automated eosinophil count 0.1 10*3/uL 0 .0-0.3 Automated blood basophil count (count/volume) 0.0 10*3/uL 0.0-0.1 Comprehensive metabolic panel - 01/01/19 12:01 Serum or plasma sodium measurement (moles/volume) 140 mmol/L 135-145 Serum or plasma potassium measurement (moles/volume) 2.7 mmol/L 3.6-5.0 Serum or plasma chloride measurement (moles/volume) 95 mmol/L 98-107 Carbon dioxide 25 mmol/L 21-32 Serum or plasma anion gap determination (moles/volume) 20 mmol/L 5-14 Serum or plasma urea nitrogen measurement (mass/volume ) 15 mg/dL 7-18 Serum or plasma creatinine measurement (mass/volume) 0.94 mg/dL 0.60-1.30 Serum or plasma urea nitrogen/creatinine mass ratio 16 NRG Serum or plasma creatinine measurement w ith calculation of estimated glomerular filtration rate > NRG Serum or plasma glucose measurement (mass/volume) 129 mg/dL 70-105 Serum or plasma calcium measurement (mass/volume) 9.7 mg/dL 8.5-10.1 Serum or plasma total bilirubin measurement (mass/volu me) 0.5 mg/dL 0.1-1.0 Serum or plasma alkaline phosphatase harry surement (enzymatic activity/volume) 112 U/L 40-136 Serum or plasma aspartate aminotransfera se measurement (enzymatic activity/volume) 29 U/L 5-34 Serum or plasma alanine aminotransferase measurement (enzymatic activity/volume) 19 U/L 0-55 Serum or plasma protein measurement (mass/volume) 8.5 g/dL 6.4-8.2 Serum or plasma albumin measurement (mass/volume) 4.1 g/dL 3.2-4.5 CALCIUM CORRECTED 9.6 mg/dL 8.5-10.1 TROPONIN T - 01/01/19 12:01 TROPONIN T 10 % <=10 Lipase - 01/01/19 12:01 Lipase 12 U/L 8-78 Complete blood count (CBC) with automate d white blood cell (WBC) differential - 01/01/19 12:01 Blood leukocytes automated count (number/volume) 11.2 10*3/uL 4.3-11.0 Blood erythrocytes automated count (number/volume) 5.33 10*6/uL 4.35-5.85 Venous blood hemoglobin measurement (mass/volume) 15.5 g/dL 11.5-16.0 Blood hematocrit (volume fraction) 45 % 35-52 Automated erythrocyte mean corpuscular volume 85 [ foz_us] 80-99 Automated erythrocyte mean corpuscular h emoglobin (mass per erythrocyte) 29 pg 25-34 Automated erythrocyte mean corpuscular h emoglobin concentration measurement (mass/volume) 34 g/dL 32-36 Automated erythrocyte distribution width ratio 14. 7 % 10.0- 14.5 Automated blood platelet count (count/volume) 317 10*3/uL 130-400 Automated blood platelet mean volume measurement 11.3 [foz_us] 7.4-10.4 Automated blood neutrophils/100 leukocytes 71 % 42-75 Automated blood lymphocytes/100 leukocytes 20 % 12-44 Blood monocytes/100 leukocytes 8 % 0-12 Automated blood eosinophils/100 leukocytes 1 % 0-10 Automated blood basophils/100 leukocytes 0 % 0-10 Blood neutrophils automated count (number/volume) 7.8 10*3 1.8-7.8 Blood lymphocytes automated count (number/volume) 2.3 10*3 1.0-4.0 Blood monocytes automated count (number/volume) 0. 9 10*3 0.0-1.0 Automated eosinophil count 0.1 10*3/uL 0 .0-0.3 Automated blood basophil count (count/volume) 0.0 10*3/uL 0.0-0.1 Complete urinalysis with reflex to cultu re - 01/01/19 12:47 Urine color determination KYLE NRG Urine clarity determination CLEAR NR G Urine pH measurement by test strip 6.0 5-9 Specific gravity of urine by test strip 1.025 1.016-1.022 Urine protein assay by test strip, semi-quantitative 1+ NEGATIVE Urine glucose detection by automated test strip NE GATIVE NEGATIVE Erythrocytes detection in urine sediment by light micr oscopy NEGATIVE NEGATIVE Urine ketones detection by automated test strip TR GORDON NEGATIVE Urine nitrite detection by test strip NEGATIVE NEGATIVE Urine total bilirubin detection by test strip 2+ NEGATIVE Urine urobilinogen measurement by automated test strip (mass/volume) 1.0 mg/dL NORMAL Urine leukocyte esterase detection by dipstick NEG ATIVE NEGATIVE Automated urine sediment erythrocyte cou nt by microscopy (number/high power field) NONE NRG Automated urine sediment leukocyte count by microscopy (number/high power field) [HPF] NRG Bacteria detection in urine sediment by light microsco py NEGATIVE NRG Squamous epithelial cells detection in u rine sediment by light microscopy 2-5 NRG Crystals detection in urine sediment by light microsco py NONE NRG Casts detection in urine sediment by light microscopy PRESENT NRG Mucus detection in urine sediment by light microscopy LARGE NRG Complete urinalysis with reflex to culture NO NRG Hyaline casts detection in urine sediment by light avel roscopy 10-25 NRG WBC casts detection in urine sediment by light microsc opy RARE NRG Coarse granular casts detection in urine sediment by l ight microscopy RARE NRG CMP - 01/10/19 11:25 GLUCOSE 114 mg/dL 65-139 UREA NITROGEN (BUN) 12 mg/dL 7-25 CREATININE 0.87 mg/dL 0.50-0.99 eGFR NON-AFR. [place]DI[place] 70 mL/min/1.73m2 > OR = 60 eGFR 82 mL/min/1.73m2 > OR = 60 BUN/CREATININE RATIO NOT APPLICABLE (calc) 6-22 SODIUM 140 mmol/L 135-146 POTASSIUM 4.1 mmol/L 3.5-5.3 CHLORIDE 103 mmol/L 98-110 CARBON DIOXIDE 23 mmol/L 20-32 CALCIUM 9.9 mg/dL 8.6-10.4 PROTEIN, TOTAL 8.3 g/dL 6.1-8.1 ALBUMIN 4.0 g/dL 3.6-5.1 GLOBULIN 4.3 g/dL (calc) 1.9-3.7 ALBUMIN/GLOBULIN RATIO 0.9 (calc) 1.0-2. 5 BILIRUBIN, TOTAL 0.4 mg/dL 0.2-1.2 ALKALINE PHOSPHATASE 121 U/L 33-130 AST 32 U/L 10-35 ALT 26 U/L 6-29 Complete urinalysis with reflex to cultu re - 01/13/19 14:10 Urine color determination YELLOW NRG Urine clarity determination SLIGHTLY CLOUDY NRG Urine pH measurement by test strip 6 5-9 Specific gravity of urine by test strip 1.025 1.016-1.022 Urine protein assay by test strip, semi-quantitative 2+ NEGATIVE Urine glucose detection by automated test strip NE GATIVE NEGATIVE Erythrocytes detection in urine sediment by light micr oscopy TRACE-I NEGATIVE Urine ketones detection by automated test strip NE GATIVE NEGATIVE Urine nitrite detection by test strip NEGATIVE NEGATIVE Urine total bilirubin detection by test strip 1+ NEGATIVE Urine urobilinogen measurement by automated test strip (mass/volume) 1 mg/dL NORMAL Urine leukocyte esterase detection by dipstick 2+ NEGATIVE Automated urine sediment erythrocyte cou nt by microscopy (number/high power field) RARE NRG Automated urine sediment leukocyte count by microscopy (number/high power field) [HPF] NRG Bacteria detection in urine sediment by light microsco py MODERATE NRG Squamous epithelial cells detection in u rine sediment by light microscopy 0-2 NRG Crystals detection in urine sediment by light microsco py NONE NRG Casts detection in urine sediment by light microscopy PRESENT NRG Mucus detection in urine sediment by light microscopy SMALL NRG Complete urinalysis with reflex to culture YES NRG Hyaline casts detection in urine sediment by light avel roscopy 10-25 NRG Renal epithelial cells detection in urin e sediment by light microscopy 0-2 NRG Urine drug screening test - 01/13/19 14: 10 Urine phencyclidine detection by screening method NEGATIVE NEGATIVE Urine benzodiazepines detection by screening method NEGATIVE NEGATIVE Urine cocaine detection NEGATIVE NEGATI VE Urine amphetamines detection by screening method N EGATIVE NEGATIVE Urine methamphetamine detection by screening method NEGATIVE NEGATIVE Urine cannabinoids detection by screening method N EGATIVE NEGATIVE Urine opiates detection by screening method NEGATI VE NEGATIVE Urine barbiturates detection NEGATIVE N EGATIVE Screening urine tricyclic antidepressants detection NEGATIVE NEGATIVE Urine methadone detection by screening method NEGA TIVE NEGATIVE Urine oxycodone detection NEGATIVE NEGA TIVE Urine propoxyphene detection NEGATIVE N EGATIVE Bacterial urine culture - 01/13/19 14:10 Bacterial urine culture SEE REPORT NRG COLONY COUNT . NRG Complete blood count (CBC) with automate d white blood cell (WBC) differential - 01/13/19 15:01 Blood leukocytes automated count (number/volume) 10.7 10*3/uL 4.3-11.0 Blood erythrocytes automated count (number/volume) 5.75 10*6/uL 4.35-5.85 Venous blood hemoglobin measurement (mass/volume) 16.2 g/dL 11.5-16.0 Blood hematocrit (volume fraction) 49 % 35-52 Automated erythrocyte mean corpuscular volume 85 [ foz_us] 80-99 Automated erythrocyte mean corpuscular h emoglobin (mass per erythrocyte) 28 pg 25-34 Automated erythrocyte mean corpuscular h emoglobin concentration measurement (mass/volume) 33 g/dL 32-36 Automated erythrocyte distribution width ratio 14. 7 % 10.0- 14.5 Automated blood platelet count (count/volume) 224 10*3/uL 130-400 Automated blood platelet mean volume measurement 10.6 [foz_us] 7.4-10.4 Automated blood neutrophils/100 leukocytes 73 % 42-75 Automated blood lymphocytes/100 leukocytes 20 % 12-44 Blood monocytes/100 leukocytes 6 % 0-12 Automated blood eosinophils/100 leukocytes 1 % 0-10 Automated blood basophils/100 leukocytes 0 % 0-10 Blood neutrophils automated count (number/volume) 7.8 10*3 1.8-7.8 Blood lymphocytes automated count (number/volume) 2.1 10*3 1.0-4.0 Blood monocytes automated count (number/volume) 0. 7 10*3 0.0-1.0 Automated eosinophil count 0.1 10*3/uL 0 .0-0.3 Automated blood basophil count (count/volume) 0.0 10*3/uL 0.0-0.1 Comprehensive metabolic panel - 01/13/19 15:01 Serum or plasma sodium measurement (moles/volume) 141 mmol/L 135-145 Serum or plasma potassium measurement (moles/volume) 3.1 mmol/L 3.6-5.0 Serum or plasma chloride measurement (moles/volume) 102 mmol/L 98-107 Carbon dioxide 20 mmol/L 21-32 Serum or plasma anion gap determination (moles/volume) 19 mmol/L 5-14 Serum or plasma urea nitrogen measurement (mass/volume ) 11 mg/dL 7-18 Serum or plasma creatinine measurement (mass/volume) 0.84 mg/dL 0.60-1.30 Serum or plasma urea nitrogen/creatinine mass ratio 13 NRG Serum or plasma creatinine measurement w ith calculation of estimated glomerular filtration rate > NRG Serum or plasma glucose measurement (mass/volume) 121 mg/dL 70-105 Serum or plasma calcium measurement (mass/volume) 9.6 mg/dL 8.5-10.1 Serum or plasma total bilirubin measurement (mass/volu me) 0.5 mg/dL 0.1-1.0 Serum or plasma alkaline phosphatase harry surement (enzymatic activity/volume) 137 U/L 40-136 Serum or plasma aspartate aminotransfera se measurement (enzymatic activity/volume) 36 U/L 5-34 Serum or plasma alanine aminotransferase measurement (enzymatic activity/volume) 27 U/L 0-55 Serum or plasma protein measurement (mass/volume) 8.4 g/dL 6.4-8.2 Serum or plasma albumin measurement (mass/volume) 4.0 g/dL 3.2-4.5 CALCIUM CORRECTED 9.6 mg/dL 8.5-10.1 Lipase - 01/13/19 15:01 Lipase 12 U/L 8-78 LIPID PANEL - 04/29/19 09:09 CHOLESTEROL, TOTAL 203 mg/dL <200 HDL CHOLESTEROL 38 mg/dL >50 TRIGLYCERIDES 169 mg/dL <150 LDL-CHOLESTEROL 134 mg/dL (calc) NRG CHOL/HDLC RATIO 5.3 (calc) <5.0 NON HDL CHOLESTEROL 165 mg/dL (calc) <13 0 MICROALBUMIN/CREATININE RATIO, URINE - 0 04/29/19 09:09 CREATININE, RANDOM URINE 187 mg/dL 20-27 5 MICROALBUMIN 8.8 mg/dL See Note: MICROALBUMIN/CREATININE RATIO, RANDOM URINE 47 mcg /mg creat <30 CMP - 04/29/19 09:09 GLUCOSE 111 mg/dL 65-99 UREA NITROGEN (BUN) 6 mg/dL 7-25 CREATININE 0.82 mg/dL 0.50-0.99 eGFR NON-AFR. INDIAN 76 mL/min/1.73m2 > OR = 60 eGFR 88 mL/min/1.73m2 > OR = 60 BUN/CREATININE RATIO 7 (calc) 6-22 SODIUM 142 mmol/L 135-146 POTASSIUM 3.4 mmol/L 3.5-5.3 CHLORIDE 106 mmol/L 98-110 CARBON DIOXIDE 27 mmol/L 20-32 CALCIUM 9.5 mg/dL 8.6-10.4 PROTEIN, TOTAL 7.6 g/dL 6.1-8.1 ALBUMIN 3.6 g/dL 3.6-5.1 GLOBULIN 4.0 g/dL (calc) 1.9-3.7 ALBUMIN/GLOBULIN RATIO 0.9 (calc) 1.0-2. 5 BILIRUBIN, TOTAL 0.4 mg/dL 0.2-1.2 ALKALINE PHOSPHATASE 143 U/L 33-130 AST 33 U/L 10-35 ALT 23 U/L 6-29 CBC - 04/29/19 09:09 WHITE BLOOD CELL COUNT 8.1 Thousand/uL 3 .8-10.8 RED BLOOD CELL COUNT 5.30 Million/uL 3.8 0-5.10 HEMOGLOBIN 14.7 g/dL 11.7-15.5 HEMATOCRIT 45.4 % 35.0-45.0 MCV 85.7 fL 80.0-100.0 MCH 27.7 pg 27.0-33.0 MCHC 32.4 g/dL 32.0-36.0 RDW 15.2 % 11.0-15.0 PLATELET COUNT 270 Thousand/uL 140-400 MPV 10.3 fL 7.5-12.5 ABSOLUTE NEUTROPHILS 5322 cells/uL 1500- 7800 ABSOLUTE LYMPHOCYTES 2179 cells/uL 850-3 900 ABSOLUTE MONOCYTES 486 cells/uL 200-950 ABSOLUTE EOSINOPHILS 97 cells/uL 15-500 ABSOLUTE BASOPHILS 16 cells/uL 0-200 NEUTROPHILS 65.7 % NRG LYMPHOCYTES 26.9 % NRG MONOCYTES 6.0 % NRG EOSINOPHILS 1.2 % NRG BASOPHILS 0.2 % NRG A1C - 04/29/19 09:09 HEMOGLOBIN A1c 5.8 % of total Hgb <5.7 AMYLASE - 05/09/19 14:54 AMYLASE 50 U/L 21-101 CULTURE, URINE - 05/23/19 15:32 CULTURE, URINE, ROUTINE SEE NOTE NRG Complete blood count (CBC) with automate d white blood cell (WBC) differential - 05/26/19 15:25 Blood leukocytes automated count (number/volume) 11.2 10*3/uL 4.3-11.0 Blood erythrocytes automated count (number/volume) 5.20 10*6/uL 4.35-5.85 Venous blood hemoglobin measurement (mass/volume) 14.7 g/dL 11.5-16.0 Blood hematocrit (volume fraction) 44 % 35-52 Automated erythrocyte mean corpuscular volume 85 [ foz_us] 80-99 Automated erythrocyte mean corpuscular h emoglobin (mass per erythrocyte) 28 pg 25-34 Automated erythrocyte mean corpuscular h emoglobin concentration measurement (mass/volume) 33 g/dL 32-36 Automated erythrocyte distribution width ratio 15. 4 % 10.0- 14.5 Automated blood platelet count (count/volume) 262 10*3/uL 130-400 Automated blood platelet mean volume measurement 9.8 [foz_us] 7.4-10.4 Automated blood neutrophils/100 leukocytes 68 % 42-75 Automated blood lymphocytes/100 leukocytes 24 % 12-44 Blood monocytes/100 leukocytes 6 % 0-12 Automated blood eosinophils/100 leukocytes 2 % 0-10 Automated blood basophils/100 leukocytes 0 % 0-10 Blood neutrophils automated count (number/volume) 7.6 10*3 1.8-7.8 Blood lymphocytes automated count (number/volume) 2.7 10*3 1.0-4.0 Blood monocytes automated count (number/volume) 0. 7 10*3 0.0-1.0 Automated eosinophil count 0.2 10*3/uL 0 .0-0.3 Automated blood basophil count (count/volume) 0.0 10*3/uL 0.0-0.1 PT panel in platelet poor plasma by coag ulation assay - 05/26/19 15:25 Prothrombin time (PT) in platelet poor plasma by coagu lation assay 13.6 s 12.2-14.7 INR in platelet poor plasma or blood by coagulation as say 1.0 0.8-1.4 Activated partial thromboplastin time (a PTT) in platelet poor plasma bycoagulation assay - 05/26/19 15:25 Activated partial thromboplastin time (a PTT) in platelet poor plasma bycoagulation assay 32 s 24-35 Blood lactic acid measurement (moles/vol ume) - 05/26/19 15:25 Blood lactic acid measurement (moles/volume) 1.20 mmol/L 0.50-2.00 Comprehensive metabolic panel - 05/26/19 15:25 Serum or plasma sodium measurement (moles/volume) 139 mmol/L 135-145 Serum or plasma potassium measurement (moles/volume) 3.5 mmol/L 3.6-5.0 Serum or plasma chloride measurement (moles/volume) 98 mmol/L 98-107 Carbon dioxide 24 mmol/L 21-32 Serum or plasma anion gap determination (moles/volume) 17 mmol/L 5-14 Serum or plasma urea nitrogen measurement (mass/volume ) 13 mg/dL 7-18 Serum or plasma creatinine measurement (mass/volume) 1.21 mg/dL 0.60-1.30 Serum or plasma urea nitrogen/creatinine mass ratio 11 NRG Serum or plasma creatinine measurement w ith calculation of estimated glomerular filtration rate 54 NRG Serum or plasma glucose measurement (mass/volume) 111 mg/dL 70-105 Serum or plasma calcium measurement (mass/volume) 10.1 mg/dL 8.5-10.1 Serum or plasma total bilirubin measurement (mass/volu me) 0.5 mg/dL 0.1-1.0 Serum or plasma alkaline phosphatase harry surement (enzymatic activity/volume) 140 U/L 40-136 Serum or plasma aspartate aminotransfera se measurement (enzymatic activity/volume) 31 U/L 5-34 Serum or plasma alanine aminotransferase measurement (enzymatic activity/volume) 19 U/L 0-55 Serum or plasma protein measurement (mass/volume) 8.5 g/dL 6.4-8.2 Serum or plasma albumin measurement (mass/volume) 4.0 g/dL 3.2-4.5 CALCIUM CORRECTED 10.1 mg/dL 8.5-10.1 Serum or plasma troponin i.cardiac measu rement (mass/volume) - 05/26/19 15:25 Serum or plasma troponin i.cardiac measurement (mass/v olume) < ng/mL <0.30 Lipase - 05/26/19 15:25 Lipase 12 U/L 8-78 Bacterial blood culture - 05/26/19 15:25 Bacterial blood culture NG NRG Bacterial blood culture - 05/26/19 16:23 Bacterial blood culture NG NRG Complete urinalysis with reflex to cultu re - 05/26/19 17:05 Urine color determination YELLOW NRG Urine clarity determination CLEAR NR G Urine pH measurement by test strip 7.0 5-9 Specific gravity of urine by test strip < 1.016-1.022 Urine protein assay by test strip, semi-quantitative TRACE NEGATIVE Urine glucose detection by automated test strip NE GATIVE NEGATIVE Erythrocytes detection in urine sediment by light micr oscopy NEGATIVE NEGATIVE Urine ketones detection by automated test strip TR GORDON NEGATIVE Urine nitrite detection by test strip NEGATIVE NEGATIVE Urine total bilirubin detection by test strip NEGA TIVE NEGATIVE Urine urobilinogen measurement by automated test strip (mass/volume) 1.0 mg/dL NORMAL Urine leukocyte esterase detection by dipstick NEG ATIVE NEGATIVE Automated urine sediment erythrocyte cou nt by microscopy (number/high power field) NONE NRG Automated urine sediment leukocyte count by microscopy (number/high power field) NONE NRG Bacteria detection in urine sediment by light microsco py NONE NRG Squamous epithelial cells detection in u rine sediment by light microscopy 2-5 NRG Crystals detection in urine sediment by light microsco py NONE NRG Casts detection in urine sediment by light microscopy PRESENT NRG Mucus detection in urine sediment by light microscopy NEGATIVE NRG Complete urinalysis with reflex to culture NO NRG Hyaline casts detection in urine sediment by light avel roscopy 2-5 NRG Bacterial urine culture - 05/26/19 17:05 Bacterial urine culture NG NRG Complete blood count (CBC) with automate d white blood cell (WBC) differential - 06/02/19 21:56 Blood leukocytes automated count (number/volume) 11.5 10*3/uL 4.3-11.0 Blood erythrocytes automated count (number/volume) 5.00 10*6/uL 4.35-5.85 Venous blood hemoglobin measurement (mass/volume) 14.1 g/dL 11.5-16.0 Blood hematocrit (volume fraction) 42 % 35-52 Automated erythrocyte mean corpuscular volume 85 [ foz_us] 80-99 Automated erythrocyte mean corpuscular h emoglobin (mass per erythrocyte) 28 pg 25-34 Automated erythrocyte mean corpuscular h emoglobin concentration measurement (mass/volume) 33 g/dL 32-36 Automated erythrocyte distribution width ratio 15. 1 % 10.0- 14.5 Automated blood platelet count (count/volume) 249 10*3/uL 130-400 Automated blood platelet mean volume measurement 10.9 [foz_us] 7.4-10.4 Automated blood neutrophils/100 leukocytes 63 % 42-75 Automated blood lymphocytes/100 leukocytes 27 % 12-44 Blood monocytes/100 leukocytes 7 % 0-12 Automated blood eosinophils/100 leukocytes 2 % 0-10 Automated blood basophils/100 leukocytes 0 % 0-10 Blood neutrophils automated count (number/volume) 7.3 10*3 1.8-7.8 Blood lymphocytes automated count (number/volume) 3.1 10*3 1.0-4.0 Blood monocytes automated count (number/volume) 0. 8 10*3 0.0-1.0 Automated eosinophil count 0.2 10*3/uL 0 .0-0.3 Automated blood basophil count (count/volume) 0.0 10*3/uL 0.0-0.1 Comprehensive metabolic panel - 06/02/19 21:56 Serum or plasma sodium measurement (moles/volume) 136 mmol/L 135-145 Serum or plasma potassium measurement (moles/volume) 3.7 mmol/L 3.6-5.0 Serum or plasma chloride measurement (moles/volume) 97 mmol/L 98-107 Carbon dioxide 22 mmol/L 21-32 Serum or plasma anion gap determination (moles/volume) 17 mmol/L 5-14 Serum or plasma urea nitrogen measurement (mass/volume ) 9 mg/dL 7-18 Serum or plasma creatinine measurement (mass/volume) 1.08 mg/dL 0.60-1.30 Serum or plasma urea nitrogen/creatinine mass ratio 8 NRG Serum or plasma creatinine measurement w ith calculation of estimated glomerular filtration rate > NRG Serum or plasma glucose measurement (mass/volume) 99 mg/dL 70-105 Serum or plasma calcium measurement (mass/volume) 9.6 mg/dL 8.5-10.1 Serum or plasma total bilirubin measurement (mass/volu me) 0.3 mg/dL 0.1-1.0 Serum or plasma alkaline phosphatase harry surement (enzymatic activity/volume) 135 U/L 40-136 Serum or plasma aspartate aminotransfera se measurement (enzymatic activity/volume) 24 U/L 5-34 Serum or plasma alanine aminotransferase measurement (enzymatic activity/volume) 14 U/L 0-55 Serum or plasma protein measurement (mass/volume) 8.1 g/dL 6.4-8.2 Serum or plasma albumin measurement (mass/volume) 3.7 g/dL 3.2-4.5 CALCIUM CORRECTED 9.8 mg/dL 8.5-10.1 Complete urinalysis with reflex to cultu re - 06/02/19 23:10 Urine color determination YELLOW NRG Urine clarity determination CLEAR NR G Urine pH measurement by test strip 6.0 5-9 Specific gravity of urine by test strip 1.020 1.016-1.022 Urine protein assay by test strip, semi-quantitative NEGATIVE NEGATIVE Urine glucose detection by automated test strip NE GATIVE NEGATIVE Erythrocytes detection in urine sediment by light micr oscopy NEGATIVE NEGATIVE Urine ketones detection by automated test strip NE GATIVE NEGATIVE Urine nitrite detection by test strip NEGATIVE NEGATIVE Urine total bilirubin detection by test strip NEGA TIVE NEGATIVE Urine urobilinogen measurement by automated test strip (mass/volume) 1.0 mg/dL NORMAL Urine leukocyte esterase detection by dipstick 1+ NEGATIVE Automated urine sediment erythrocyte cou nt by microscopy (number/high power field) NONE NRG Automated urine sediment leukocyte count by microscopy (number/high power field) [HPF] NRG Bacteria detection in urine sediment by light microsco py FEW NRG Squamous epithelial cells detection in u rine sediment by light microscopy 10-25 NRG Crystals detection in urine sediment by light microsco py NONE NRG Casts detection in urine sediment by light microscopy NONE NRG Mucus detection in urine sediment by light microscopy NEGATIVE NRG Complete urinalysis with reflex to culture YES NRG Bacterial urine culture - 06/02/19 23:10 Bacterial urine culture [id number] NRG COLONY COUNT >100,000/ML NRG FTX;REPORTABLE SEE COMMENTS NRG CULTURE, URINE - 08/24/19 19:00 CULTURE, URINE, ROUTINE SEE NOTE NRG Automated blood complete blood count (he mogram) panel - 09/08/19 10:05 Blood leukocytes automated count (number/volume) 9.9 10*3/uL 4.3-11.0 Blood erythrocytes automated count (number/volume) 5.17 10*6/uL 4.35-5.85 Venous blood hemoglobin measurement (mass/volume) 14.4 g/dL 11.5-16.0 Blood hematocrit (volume fraction) 44 % 35-52 Automated erythrocyte mean corpuscular volume 84 [ foz_us] 80-99 Automated erythrocyte mean corpuscular h emoglobin (mass per erythrocyte) 28 pg 25-34 Automated erythrocyte mean corpuscular h emoglobin concentration measurement (mass/volume) 33 g/dL 32-36 Automated erythrocyte distribution width ratio 14. 6 % 10.0- 14.5 Automated blood platelet count (count/volume) 268 10*3/uL 130-400 Automated blood platelet mean volume measurement 10.7 [foz_us] 7.4-10.4 Comprehensive metabolic panel - 09/08/19 10:05 Serum or plasma sodium measurement (moles/volume) 141 mmol/L 135-145 Serum or plasma potassium measurement (moles/volume) 2.9 mmol/L 3.6-5.0 Serum or plasma chloride measurement (moles/volume) 99 mmol/L 98-107 Carbon dioxide 26 mmol/L 21-32 Serum or plasma anion gap determination (moles/volume) 16 mmol/L 5-14 Serum or plasma urea nitrogen measurement (mass/volume ) 7 mg/dL 7-18 Serum or plasma creatinine measurement (mass/volume) 0.81 mg/dL 0.60-1.30 Serum or plasma urea nitrogen/creatinine mass ratio 9 NRG Serum or plasma creatinine measurement w ith calculation of estimated glomerular filtration rate > NRG Serum or plasma glucose measurement (mass/volume) 175 mg/dL 70-105 Serum or plasma calcium measurement (mass/volume) 9.6 mg/dL 8.5-10.1 Serum or plasma total bilirubin measurement (mass/volu me) 0.3 mg/dL 0.1-1.0 Serum or plasma alkaline phosphatase harry surement (enzymatic activity/volume) 179 U/L 40-136 Serum or plasma aspartate aminotransfera se measurement (enzymatic activity/volume) 43 U/L 5-34 Serum or plasma alanine aminotransferase measurement (enzymatic activity/volume) 28 U/L 0-55 Serum or plasma protein measurement (mass/volume) 8.9 g/dL 6.4-8.2 Serum or plasma albumin measurement (mass/volume) 3.9 g/dL 3.2-4.5 CALCIUM CORRECTED 9.7 mg/dL 8.5-10.1 Magnesium - 09/08/19 10:05 Magnesium 1.7 mg/dL 1.6-2.4 CRP FS - 09/08/19 10:05 CRP FS 1.24 mg/dL <0.50 Influenza virus A and B antigen detectio n - 09/08/19 10:30 CALL POSITIVES (F1 HELP) RN [facility] FLU RESULT POSITIVE FOR INFLUENZA B ANT IGEN, NEG FOR A ANTIGEN, BY IA [facility] CULTURE, URINE - 10/09/19 00:00 CULTURE, URINE, ROUTINE SEE NOTE [facility] A1C - 10/25/19 14:17 HEMOGLOBIN A1c 5.5 % of total Hgb <5.7 Whole blood basic metabolic panel - 10/19 09:45 Serum or plasma sodium measurement (moles/volume) 142 mmol/L 135-145 Serum or plasma potassium measurement (moles/volume) 2.4 mmol/L 3.6-5.0 Serum or plasma chloride measurement (moles/volume) 98 mmol/L 98-107 Carbon dioxide 30 mmol/L 21-32 Serum or plasma anion gap determination (moles/volume) 14 mmol/L 5-14 Serum or plasma urea nitrogen measurement (mass/volume ) 8 mg/dL 7-18 Serum or plasma creatinine measurement (mass/volume) 0.75 mg/dL 0.60-1.30 Serum or plasma urea nitrogen/creatinine mass ratio 11 NRG Serum or plasma creatinine measurement w ith calculation of estimated glomerular filtration rate > NRG Serum or plasma glucose measurement (mass/volume) 108 mg/dL 70-105 Serum or plasma calcium measurement (mass/volume) 9.1 mg/dL 8.5-10.1 Magnesium - 10/28/19 09:45 Magnesium 1.6 mg/dL 1.6-2.4 Encounters ACCT No. Visit Date/Time Discharge Status Pt. Type Provider Facility Loc./Unit Complaint [id number] 10/25/2019 14:15:00 10/25/2019 23:59: 59 [id number] 10/25/2019 14:15:00 Document Registration [id number] 10/09/2019 16:00:00 Document Registration [id number] 08/24/2019 09:40:00 Document Registration [id number] 05/23/2019 15:10:00 Document Registration [id number] 05/09/2019 14:15:00 Document Registration [id number] 04/29/2019 08:45:00 Document Registration [id number] 01/10/2019 10:45:00 Document Registration [id number] 10/28/2019 09:31:00 10:30:00 DIS Emergency ELMER VALERIO DO [facility] ER FS ABD LAB RESULTS [id number] 10/09/2019 17:29:00 18:10:00 DIS Emergency LAKSHMI ZEE MD [facility] ER FS BACK PAIN [id number] 09/08/2019 09:56:00 11:15:00 DIS Emergency ELMER VALERIO DO [facility] ER FS CHEST PAIN [id number] 06/02/2019 21:41:00 23:41:00 DIS Emergency RAHUL WEATHERS DO [facility] ER FS RIGHT FLANK PAIN [id number] 05/26/2019 14:53:00 17:39:00 DIS Emergency CAMERON PEÑA MD [facility] ER FS VOMITING [id number] 01/21/2019 09:21:00 11:30:00 DIS Outpatient NAA BALDERRAMA DO [facility] ENDO VOMITING/EPIGASTRIC BUFFY N [id number] 01/17/2019 05:39:00 11:03:00 DIS Outpatient NAA BALDERRAMA DO [facility] PREOP EGD [id number] 01/13/2019 13:37:00 16:59:00 DIS Emergency JASSI ARCINIEGA DO [facility] ER FS VOMITING,STOMACH PAIN [id number] 01/01/2019 10:46:00 14:22:00 DIS Emergency PAUL NATHAN DO [facility] ER FS VOMITING [id number] 12/10/2018 10:57:00 15:09:00 DIS Emergency SONNY SALDANA MD [facility] ER FS NAUSEA VOMITI NG
== END 2019-10-28 10:30 | disposition home or self-care (01) ==
LOC: EDUNIT# 09:29 → ER FS 09:31
DX: E87.6 Hypokalemia (principal); I10 Essential (primary) hypertension; E11.9 Type 2 diabetes mellitus without complications; Z88.5 Allergy status to narcotic agent; Z88.2 Allergy status to sulfonamides; Z77.22 Contact with and (suspected) exposure to environmental tobacco smoke (acute) (chronic)
CPT/HCPCS: 36415; 80048; 83735

== ENCOUNTER 2019-12-10 20:17 | Inpatient (IN) | payer MEDICARE, MEDICAID ==
[~2019-12-10] VITALS: Ht 162.5 cm; Wt 73.1 kg
[~2019-12-10 20:17] MED LIST changes: -MONT10TA24 PO; +MONT10TA26 PO; +POTA20TA15 PO
[2019-12-10] MEDS ORDERED: METOCLOPRAMIDE INJ 10 MG/2 ML (REGLAN) IVP ONE (20:30)
[2019-12-10] MEDS ORDERED: diphenhydrAMINE 50 MG/ML INJ (BENADRYL) IVP ONE (20:30)
--- NOTE | 2019-12-10 20:42 | ED Headache ---
General Chief Complaint: Head/Cervical Problems Stated Complaint: HEADACHE,SHAKY Nursing Triage Note: PT. STATED SHE HAS A ESCOBAR ON THE LEFT SIDE OF HER HEAD AND SHE C/O BEING SHAKEY. PT. HAS A HX OF DIABETES. THE ESCOBAR IS LIKE THE OTHERS SHE HAS HAD AND IT STARTED AROUND 5 PM THIS EVENING. ITS A SQUEEZING TYPE PAIN. Nursing Sepsis Screen: No Definite Risk Source: patient Exam Limitations: no limitations History of Present Illness Date Seen by Provider: Dec 10, 2019 Time Seen by Provider: 20:25 Initial Comments The patient is a pleasant 64-year-old female who presents for evaluation of shakiness and a left-sided headache which began earlier this evening. She says the headache began gradually and reminds her of headaches that she has had in the past chronically. She also states that she feels shaky and has had problems with potassium and magnesium levels in the past. She also states that she is diabetic and was taken off of her medications "a while ago" and that she has not checked her blood sugar in at least 6 months. She denies fevers or chills, neck pain or neck stiffness, vision changes, focal weakness or numbness, chest pain or shortness of breath, abdominal or back pain, dizziness, nausea or vomiting, or syncope. She is alert and oriented 4, calm, and appears to be in no distress at this time. She took a Tylenol home with little relief. She mentions that she has been noncompliant with her potassium pills. Severity/Quality: moderate Location: parietal (left) Modifying Factors: improves with rest (improves) Associated Symptoms: denies symptoms Allergies and Home Medications Allergies Coded Allergies: codeine (Verified Allergy, Intermediate, itching, nausea and vomiting., 01/17/19) morphine (Verified Allergy, Intermediate, itching, nausea and vomiting, 01/17/19) Sulfa (Sulfonamide Antibiotics) (Verified Allergy, Unknown, 01/17/19) Home Medications Atorvastatin Calcium 10 Mg Tablet, 10 MG PO HS, (Reported) Chlorthalidone 25 Mg Tablet, 25 MG PO DAILY, (Reported) Dicyclomine HCl 20 Mg Tablet, 20 MG PO QID, (Reported) Lisinopril 20 Mg Tablet, 20 MG PO DAILY, (Reported) Magnesium Oxide 400 Mg Tablet, 400 MG PO BID, (Reported) Metoclopramide HCl 5 Mg Tablet, 5 MG PO ACHS, (Reported) Omeprazole 20 Mg Tablet.dr, 20 MG PO DAILY, (Reported) Oseltamivir Phosphate 75 Mg Cap, 75 MG PO BID Prescribed by: ELMER VALERIO on 09/08/19 1100 Potassium Chloride 20 Meq Tablet.er, 20 MEQ PO DAILY, (Reported) Potassium Chloride 20 Meq Tab.er.prt, 40 MEQ PO DAILY Prescribed by: ELMER VALERIO on 10/28/19 1022 Tramadol HCl 50 Mg Tablet, 50 MG PO Q6H PRN for PAIN Prescribed by: LAKSHMI ZEE on 10/09/19 1806 Venlafaxine HCl 150 Mg Cap.er.24h, 150 MG PO DAILY, (Reported) Patient Home Medication List Home Medication List Reviewed: Yes Review of Systems Review of Systems Constitutional: no symptoms reported Eyes: No Symptoms Reported Ears, Nose, Mouth, Throat: no symptoms reported Respiratory: no symptoms reported Cardiovascular: no symptoms reported Gastrointestinal: no symptoms reported Genitourinary: no symptoms reported Musculoskeletal: no symptoms reported Skin: no symptoms reported Psychiatric/Neurological: Headache All Other Systems Reviewed Negative Unless Noted: Yes Past Qplwvbk-Lyljzv-Mkziox Hx Past Med/Social Hx: Reviewed Nursing Past Med/Soc Hx Patient Social History Type Used: Cigarettes 2nd Hand Smoke Exposure: Yes Recent Foreign Travel: No Contact w/Someone Who Travel: No Recent Infectious Disease Expo: No Recent Hopitalizations: No Physical Abuse: No Sexual Abuse: No Mistreated: No Fear: No Immunizations Up To Date Date of Influenza Vaccine: Jun 25, 2019 Seasonal Allergies Seasonal Allergies: No Past Medical History Surgeries: Yes (knee arth bilat, right shoulder; back) Appendectomy, Gallbladder, Hysterectomy, Orthopedic Respiratory: No Cardiac: Yes (low potassium, low magnesium) Hypertension Neurological: No Sexually Transmitted Disease: No HIV/AIDS: No Genitourinary: No Gastrointestinal: Yes (EPIGASTRIC PAIN, N/V) Musculoskeletal: No Endocrine: No Diabetes, Non-Insulin dep HEENT: No (GLASSES) Loss of Vision: Bilateral Hearing Impairment: Denies Cancer: No Psychosocial: No Integumentary: No Blood Disorders: No Physical Exam Vital Signs Vital Signs - First Documented 12/10/19 20:20 Temp 36.1 Pulse 101 Resp 16 B/P (MAP) 161/83 (109) O2 Delivery Room Air Capillary Refill : Less Than 3 Seconds Height, Weight, BMI Height: 5'4.00" Weight: 178lbs. 0.0oz. 80.828990es; 27.00 BMI Method:Stated General Appearance: WD/WN, no apparent distress HEENT: PERRL/EOMI, TMs normal, pharynx normal Neck: non-tender, full range of motion, supple, normal inspection Cardiovascular: regular rate, rhythm, no edema, no JVD Respiratory: chest non-tender, lungs clear, normal breath sounds, no respiratory distress Gastrointestinal: normal bowel sounds, non tender, soft Extremities: normal range of motion, non-tender, no pedal edema Psychiatric: alert, oriented x 3, depressed affect Crainal Nerves: normal hearing, normal speech, PERRL Coordination/Gait: normal gait Skin: normal color, warm/dry Progress/Results/Core Measures Results/Orders Lab Results Laboratory Tests Test 12/10/19 20:45 Range/Units White Blood Count 10.0 4.3-11.0 10^3/uL Red Blood Count 4.21 L 4.35-5.85 10^6/uL Hemoglobin 11.4 L 11.5-16.0 G/DL Hematocrit 34 L 35-52 % Mean Corpuscular Volume 81 80-99 FL Mean Corpuscular Hemoglobin 27 25-34 PG Mean Corpuscular Hemoglobin Concent 33 32-36 G/DL Red Cell Distribution Width 13.8 10.0-14.5 % Platelet Count 248 130-400 10^3/uL Mean Platelet Volume 10.5 H 7.4-10.4 FL Neutrophils (%) (Auto) 70 42-75 % Lymphocytes (%) (Auto) 23 12-44 % Monocytes (%) (Auto) 6 0-12 % Eosinophils (%) (Auto) 1 0-10 % Basophils (%) (Auto) 0 0-10 % Neutrophils # (Auto) 7.0 1.8-7.8 X 10^3 Lymphocytes # (Auto) 2.3 1.0-4.0 X 10^3 Monocytes # (Auto) 0.6 0.0-1.0 X 10^3 Eosinophils # (Auto) 0.1 0.0-0.3 10^3/uL Basophils # (Auto) 0.0 0.0-0.1 10^3/uL Sodium Level 141 135-145 MMOL/L Potassium Level 2.3 *L 3.6-5.0 MMOL/L Chloride Level 98 98-107 MMOL/L Carbon Dioxide Level 28 21-32 MMOL/L Anion Gap 15 H 5-14 MMOL/L Blood Urea Nitrogen 5 L 7-18 MG/DL Creatinine 0.80 0.60-1.30 MG/DL Estimat Glomerular Filtration Rate > 60 BUN/Creatinine Ratio 6 Glucose Level 144 H 70-105 MG/DL Calcium Level 7.3 L 8.5-10.1 MG/DL Corrected Calcium 7.9 L 8.5-10.1 MG/DL Magnesium Level 1.0 *L 1.6-2.4 MG/DL Total Bilirubin 0.2 0.1-1.0 MG/DL Aspartate Amino Transf (AST/SGOT) 47 H 5-34 U/L Alanine Aminotransferase (ALT/SGPT) 21 0-55 U/L Alkaline Phosphatase 152 H 40-136 U/L Total Protein 7.6 6.4-8.2 GM/DL Albumin 3.2 3.2-4.5 GM/DL My Orders Orders - PK CHICAS DO Cbc With Automated Diff (12/10/19 20:29) Comprehensive Metabolic Panel (12/10/19 20:29) Ed Iv/Invasive Line Start (12/10/19 20:29) Ct Head Wo (12/10/19 20:29) Metoclopramide Injection (Reglan Injecti (12/10/19 20:30) Diphenhydramine Injection (Benadryl Inje (12/10/19 20:30) Ns Iv 1000 Ml (Sodium Chloride 0.9%) (12/10/19 20:45) Magnesium (12/10/19 21:34) Potassium Chloride (Tablet) (K Dur Table (12/10/19 21:45) Potassium Cl 10meq/50ml Ivpb (Kcl 10 Meq (12/10/19 21:45) Magnesium 1 Gm/100 Ml Ivpb (Magnesium Zhou (12/10/19 22:00) Medications Given in ED Current Medications Medications Dose Ordered Sig/Kalyn Route Start Time Stop Time Status Last Admin Dose Admin Diphenhydramine HCl 25 mg ONCE ONCE IVP 12/10/19 20:30 12/10/19 20:32 DC 12/10/19 20:53 25 MG Metoclopramide HCl 10 mg ONCE ONCE IVP 12/10/19 20:30 12/10/19 20:32 DC 12/10/19 20:53 10 MG Potassium Chloride 60 meq ONCE ONCE PO 12/10/19 21:45 12/10/19 21:47 DC 12/10/19 21:44 60 MEQ Vital Signs/I&O 12/10/19 20:20 Temp 36.1 Pulse 101 Resp 16 B/P (MAP) 161/83 (109) O2 Delivery Room Air Blood Pressure Mean: 109 Progress Progress Note : Progress Note @2200 - patient updated on lab and imaging results which show severe hypokalemia and also hypomagnesemia. The patient will require monitoring overnight and IV infusions lasting likely over 12 hours and for that reason will be admitted for observation. Dr. Joe accepts the observation admission at [facility]. Diagnostic Imaging Diagonstic Imaging: CT Comments [facility] [place], [place] NAME: BLAYNE RAZO [facility] REC#: [id number] PT STATUS: REG ER : 1955 PHYSICIAN: PK CHICAS DO ADMIT DATE: 12/10/19/ER FS Draft Date of Exam:12/10/19 CT HEAD WO PROCEDURE: CT head without contrast. TECHNIQUE: Multiple contiguous axial images were obtained through the brain without the use of intravenous contrast. Auto Exposure Controls were utilized during the CT exam to meet ALARA standards for radiation dose reduction. INDICATION: Headache and shakiness. No comparison available FINDINGS: There are no CT findings of an acute intracranial abnormality. There is no evidence of intracranial hemorrhage. There is no intracranial mass effect or shift. There is no hydrocephalus. There is no abnormal extra-axial fluid collection. Basilar cisterns appear patent. Posterior fossa demonstrates no acute process. There appear to be some mild background microvascular changes in the subcortical white matter. There are no findings of territorial loss of garcia-white differentiation or abnormal low density within the basal ganglia or the bess. Mastoid air cells appear clear. The visualized paranasal sinuses are clear. Orbital contents unremarkable. There is no acute calvarial abnormality. IMPRESSION: 1. No CT evidence of an acute intracranial abnormality. 2. Patchy regions of hypoattenuation within the white matter are most compatible with mild chronic microvascular changes. Dictated on workstation # [id number] Dict: 12/10/192100 Trans: 12/10/192106 [facility] [id number] Interpreted by: AHMET BOSS MD Electronically signed by: Departure Communication (Admissions) Time/Spoke to Admitting Phy: 22:00 Dr. Joe accepts the observation admission at [facility]. Impression Primary Impression: Hypokalemia Additional Impressions: Headache Hypomagnesemia Disposition: ADMITTED INPATIENT Condition: Stable Admissions Decision to Admit Reason: Admit from ER (General) Decision to Admit/Date: Dec 10, 2019 Time/Decision to Admit Time: 22:00 Departure-Patient Inst. Referrals: ALFREDO LENO MD (PCP/Family) Primary Care Physician PK CHICAS DO Dec 10, 2019 20:42
[2019-12-10] MEDS ORDERED: NS IV 1000 ML 1,000 ML IV SCH (20:45)
--- NOTE | 2019-12-10 21:07 | Diagnostic Imaging Report ---
PROCEDURE: CT head without contrast. TECHNIQUE: Multiple contiguous axial images were obtained through the brain without the use of intravenous contrast. Auto Exposure Controls were utilized during the CT exam to meet ALARA standards for radiation dose reduction. INDICATION: Headache and shakiness. No comparison available FINDINGS: There are no CT findings of an acute intracranial abnormality. There is no evidence of intracranial hemorrhage. There is no intracranial mass effect or shift. There is no hydrocephalus. There is no abnormal extra-axial fluid collection. Basilar cisterns appear patent. Posterior fossa demonstrates no acute process. There appear to be some mild background microvascular changes in the subcortical white matter. There are no findings of territorial loss of garcia-white differentiation or abnormal low density within the basal ganglia or the bess. Mastoid air cells appear clear. The visualized paranasal sinuses are clear. Orbital contents unremarkable. There is no acute calvarial abnormality. IMPRESSION: 1. No CT evidence of an acute intracranial abnormality. 2. Patchy regions of hypoattenuation within the white matter are most compatible with mild chronic microvascular changes. Dictated by: Dictated on workstation # [id number]
[2019-12-10 21:09] LABS: BASOPHILS % (AUTO) 0 % (0-10); EOSINOPHILS % (AUTO) 1 % (0-10); HEMATOCRIT 34 % (35-52); HEMOGLOBIN 11.4 G/DL (11.5-16.0); LYMPHOCYTES % (AUTO) 23 % (12-44); MEAN CORPUSCULAR HEMOGLOBIN 27 PG (25-34); MEAN CORPUSCULAR HGB CONC 33 G/DL (32-36); MEAN CORPUSCULAR VOLUME 81 FL (80-99); MEAN PLATELET VOLUME 10.5 FL (7.4-10.4); MONOCYTES % (AUTO) 6 % (0-12); NEUTROPHILS % (AUTO) 70 % (42-75); PLATELET COUNT 248 10^3/uL (130-400); RED CELL DISTRIBUTION WIDTH 13.8 % (10.0-14.5)
[2019-12-10 21:10] LABS: EOSINOPHILS # (AUTO) 0.1 10^3/uL (0.0-0.3); LYMPHOCYTES # (AUTO) 2.3 X 10^3 (1.0-4.0); MONOCYTES # (AUTO) 0.6 X 10^3 (0.0-1.0)
[2019-12-10 21:31] LABS: SODIUM 141 MMOL/L (135-145)
[2019-12-10 21:32] LABS: POTASSIUM 2.3 MMOL/L (3.6-5.0)
[2019-12-10 21:33] LABS: ALANINE AMINOTRANSFERASE 21 U/L (0-55); ALBUMIN 3.2 GM/DL (3.2-4.5); ALKALINE PHOSPHATASE 152 U/L (40-136); BILIRUBIN,TOTAL 0.2 MG/DL (0.1-1.0); BUN/CREATININE RATIO 6; CALCIUM 7.3 MG/DL (8.5-10.1); CARBON DIOXIDE 28 MMOL/L (21-32); CHLORIDE 98 MMOL/L (98-107); GFR ESTIMATED > 60; GLUCOSE 144 MG/DL (70-105); TOTAL PROTEIN 7.6 GM/DL (6.4-8.2)
--- OUTSIDE RECORDS SUMMARY | 2019-12-10 21:34 | XMS REPORT | Continuity of Care Document ---
Author Organization Unknown Address Unknown Phone Unavailable Allergies Active Description Code Type Severity Reaction Onset Reported/Identified Relationship to Patient Clinical Status Yes SULFA SULFA Moderate itching, nausea 12/10/2018 Yes codeine [id number] Drug Allergy Moderate itching, nausea 01/17/2019 Yes morphine [id number] Drug Allergy Moderate itching, nausea 01/17/2019 Yes Sulfa (Sulfonamide Antibiotics) [id number] 0491 Drug Allergy Unknown N/A 019 Medications [...] NARCOTIC AGENT STATUS 01/13/2019 SUZE DO, JASSI Ngyuen Ot Z90.49 ACQUIRED ABSENCE OF OTHER SPECIFIED [...] DO, NAA B Ot Z79.8 99 OTHER PHOTOGRAPHIC DOUBLE (CURRENT) DRUG THERAPY 01/21/2019 TACOS GOVEA NAA [...] K44.9 DIAPHRAGMATIC HERNIA WITHOUT OBSTRUCTION 01/24/2019 TACOS GOVEA, NAA B Ot Z68.3 0 BODY MASS INDEX (BMI) 30.0-30.9, ADULT 01/24/2019 TACOS GOVEA NAA B Ot Z79.8 99 OTHER PHOTOGRAPHIC DOUBLE (CURRENT) DRUG THERAPY 01/24/2019 TACOS GOVEA NAA [...] 0 GASTRITIS, UNSPECIFIED, WITHOUT BLEEDING 01/24/2019 TACOS GVOEA, NAA B Ot K31.8 9 OTHER DISEASES OF STOMACH AND DUODENUM 01/24/2019 TACOS GOVEA NAA B Ot K44.9 DIAPHRAGMATIC HERNIA WITHOUT OBSTRUCTION 01/24/2019 WALDO BALDERRAMA DOIC B Ot Z68.3 0 BODY MASS INDEX (BMI) 30.0-30.9, ADULT 01/24/2019 WALDO BALDERRAMA DOIC B Ot Z79.8 99 OTHER MCC (CURRENT) DRUG THERAPY 01/24/2019 WALDO BALDERRAMA DOIC [...] BALDERRAMA DOIC B Ot Z79.8 99 OTHER MCC (CURRENT) DRUG THERAPY 01/27/2019 WALDO BALDERRAMA DOIC B Ot Z88.2 ALLERGY STATUS TO SULFONAMIDES STATUS 01/27/2019 WALDO BALDERRAMA DOIC B Ot Z88.5 ALLERGY STATUS TO NARCOTIC AGENT STATUS 05/26/2019 CAMERON PEÑA MD Ot E11. 9 TYPE 2 DIABETES MELLITUS WITHOUT COMPLIC 05/26/2019 CAMERON PEÑA MD Ot F17.210 NICOTINE DEPENDENCE, CIGARETTES, UNCOMPL 05/26/2019 CAMERON PEÑA MD Ot I10 ESSENTIAL (PRIMARY) HYPERTENSION 05/26/2019 CAMERON PÑEA MD Ot I71. 4 ABDOMINAL AORTIC ANEURYSM, [...] MD Ot Z98.890 OTHER SPECIFIED POSTPROCEDURAL STATES 11/08/2019 VALERIO DO, ELMER L Ot E11.9 TYPE 2 DIABETES MELLITUS WITHOUT COMPLIC 11/08/2019 VALERIO DO, ELMER L Ot E87.6 HYPOKALEMIA 11/08/2019 VALERIO DO, ELMER L Ot I10 ESSENTIAL (PRIMARY) HYPERTENSION 11/08/2019 VALERIO DO, ELMER L Ot Z77.2 2 CNTCT W AND EXPSR TO ENVIRON TOBACCO SMO 11/08/2019 VALERIO DO, ELMER L Ot Z88.2 ALLERGY STATUS TO SULFONAMIDES STATUS 11/08/2019 VALERIO DO, ELMER L Ot Z88.5 ALLERGY STATUS TO NARCOTIC AGENT STATUS Procedures There is no data. Results Test [...] 7-25 CREATININE 0.87 mg/dL 0.50-0.99 eGFR NON-AFR. SW[place] 70 mL/min/1.73m2 > OR = 60 eGFR [...] 7-25 CREATININE 0.82 mg/dL 0.50-0.99 eGFR NON-AFR. SWED[place] 76 mL/min/1.73m2 > OR = 60 eGFR [...] culture - 06/02/19 23:10 Bacterial urine culture [id number] NRG COLONY COUNT >100,000/ML NRG FTX;REPORTABLE SEE [...] 09/08/19 10:30 CALL POSITIVES (F1 HELP) RN NR FLU RESULT POSITIVE FOR INFLUENZA B ANT IGEN, NEG FOR A ANTIGEN, BY IA [facility] CULTURE, URINE - 10/09/19 00:00 CULTURE, URINE, ROUTINE SEE NOTE NR A1C - 10/25/19 14:17 HEMOGLOBIN A1c 5.5 [...] - 10/28/19 09:45 Magnesium 1.6 mg/dL 1.6-2.4 Complete blood count (CBC) with automate d white blood cell (WBC) differential - 12/10/19 20:45 Blood leukocytes automated count (number/volume) 10.0 10*3/uL 4.3-11.0 Blood erythrocytes automated count (number/volume) 4.21 10*6/uL 4.35-5.85 Venous blood hemoglobin measurement (mass/volume) 11.4 g/dL 11.5-16.0 Blood hematocrit (volume fraction) 34 % 35-52 Automated erythrocyte mean corpuscular volume 81 [ foz_us] 80-99 Automated erythrocyte mean corpuscular h emoglobin (mass per erythrocyte) 27 pg 25-34 Automated erythrocyte mean corpuscular h emoglobin concentration measurement (mass/volume) 33 g/dL 32-36 Automated erythrocyte distribution width ratio 13. 8 % 10.0- 14.5 Automated blood platelet count (count/volume) 248 10*3/uL 130-400 Automated blood platelet mean volume measurement 10.5 [foz_us] 7.4-10.4 Automated blood neutrophils/100 leukocytes 70 % 42-75 Automated blood lymphocytes/100 leukocytes 23 % 12-44 Blood monocytes/100 leukocytes 6 % 0-12 Automated blood eosinophils/100 leukocytes 1 % 0-10 Automated blood basophils/100 leukocytes 0 % 0-10 Blood neutrophils automated count (number/volume) 7.0 10*3 1.8-7.8 Blood lymphocytes automated count (number/volume) 2.3 10*3 1.0-4.0 Blood monocytes automated count (number/volume) 0. 6 10*3 0.0-1.0 Automated eosinophil count 0.1 10*3/uL 0 .0-0.3 Automated blood basophil count (count/volume) 0.0 10*3/uL 0.0-0.1 Encounters ACCT No. Visit Date/Time Discharge Status Pt. Type Provider Facility Loc./Unit Complaint [id number] 10/25/2019 14:15:00 10/25/2019 23:59: 59 [facility] Outpatient [facility] [id number] 10/25/2019 14:15:00 Document Registration [id number] 10/09/2019 16:00:00 Document Registration [id number] 08/24/2019 09:40:00 Document Registration [id number] 05/23/2019 15:10:00 Document Registration [id number] 05/09/2019 14:15:00 Document Registration [id number] 04/29/2019 08:45:00 Document Registration [id number] 01/10/2019 10:45:00 Document Registration [id number] 10/28/2019 09:31:00 10:30:00 DIS Outpatient ELMER VALERIO DO [facility] ER FS ABD LAB RESULTS [id number] 10/09/2019 17:29:00 18:10:00 DIS Emergency LAKSHMI ZEE MD [facility] ER FS BACK PAIN [id number] 09/08/2019 09:56:00 11:15:00 DIS Emergency ELMER VALERIO DO [facility] ER FS CHEST PAIN [id number] 06/02/2019 21:41:00 23:41:00 DIS Emergency RAHUL WEATHERS DO [facility] ER FS RIGHT FLANK PAIN [id number] 05/26/2019 14:53:00 17:39:00 DIS Emergency CAMERON PEÑA MD [facility] ER FS VOMITING [id number] 01/21/2019 09:21:00 11:30:00 DIS Outpatient NAA BALDERRAMA DO [facility] ENDO VOMITING/EPIGASTRIC BUFFY N [id number] 01/17/2019 05:39:00 11:03:00 DIS Outpatient NAA BALDERRAMA DO [facility] PREOP EGD [id number] 01/13/2019 13:37:00 16:59:00 DIS Emergency JASSI ARCINIEGA DO [facility] ER FS VOMITING,STOMACH PAIN [id number] 01/01/2019 10:46:00 14:22:00 DIS Emergency PAUL NATHAN DO [facility] ER FS VOMITING [id number] 12/10/2018 10:57:00 15:09:00 DIS Emergency SONNY SALDANA MD [facility] ER FS NAUSEA VOMITI NG [id number] 12/10/2019 21:10:00 Document Registration
[2019-12-10] MEDS: POTASSIUM CL 10MEQ/50ML IVPB 50 ML IV SCH ×4 (21:43→23:42)
[2019-12-10] MEDS ORDERED: KCL 20 MEQ TAB (K-DUR) PO ONE (21:45)
[2019-12-10] MEDS: MAGNESIUM 1 GM/100 ML IVPB 100 ML IV SCH ×2 (22:00→22:52)
--- NOTE | 2019-12-10 23:02 | NUR ---
NOTIFIED [facility] AND [facility] OF NEED FOR TRANSFER AND BOTH DECLINED. [facility] IS TAKING A PT TO AND WILL NOT RETURN UNTIL APPROX 4 AM.
--- OUTSIDE RECORDS SUMMARY | 2019-12-10 23:20 | XMS REPORT | Continuity of Care Document ---
Author Organization Unknown Address Unknown Phone Unavailable Allergies Active Description Code Type Severity Reaction Onset Reported/Identified Relationship to Patient Clinical Status Yes SULFA SULFA Moderate itching, nausea 12/10/2018 Yes codeine [id number] Drug Allergy Moderate itching, nausea 01/17/2019 Yes morphine [id number] Drug Allergy Moderate itching, nausea 01/17/2019 Yes Sulfa (Sulfonamide Antibiotics) L32250 0491 Drug Allergy Unknown N/A 019 Medications [...] DO, NAA B Ot Z79.8 99 OTHER DOUBLE BACKER (CURRENT) DRUG THERAPY 01/21/2019 TACOS GOVEA NAA [...] GOVEA NAA B Ot Z79.8 99 OTHER DOUBLE BACKER (CURRENT) DRUG THERAPY 01/24/2019 TACOS GOVEA NAA [...] BALDERRAMA DOIC B Ot Z79.8 99 OTHER DETENTION (CURRENT) DRUG THERAPY 01/24/2019 WALDO BALDERRAMA DOIC [...] BALDERRAMA DOIC B Ot Z79.8 99 OTHER DETENTION (CURRENT) DRUG THERAPY 01/27/2019 WALDO BALDERRAMA DOIC [...] NICOTINE DEPENDENCE, CIGARETTES, UNCOMPL 09/08/2019 VALERIO DO, LEMER L Ot I10 ESSENTIAL (PRIMARY) HYPERTENSION 09/08/2019 [...] 7-25 CREATININE 0.87 mg/dL 0.50-0.99 eGFR NON-AFR. SWAZI 70 mL/min/1.73m2 > OR = 60 eGFR [...] 7-25 CREATININE 0.82 mg/dL 0.50-0.99 eGFR NON-AFR. SWAZI 76 mL/min/1.73m2 > OR = 60 eGFR [...] culture - 06/02/19 23:10 Bacterial urine culture [id number] NRG COLONY COUNT >100,000/ML NRG FTX;REPORTABLE SEE [...] IGEN, NEG FOR A ANTIGEN, BY IA [facility] CULTURE, URINE - 10/09/19 00:00 CULTURE, URINE, [...] 0.0 10*3/uL 0.0-0.1 Comprehensive metabolic panel - 12/10/19 20:45 Serum or plasma sodium measurement (moles/volume) 141 mmol/L 135-145 Serum or plasma potassium measurement (moles/volume) 2.3 mmol/L 3.6-5.0 Serum or plasma chloride measurement (moles/volume) 98 mmol/L 98-107 Carbon dioxide 28 mmol/L 21-32 Serum or plasma anion gap determination (moles/volume) 15 mmol/L 5-14 Serum or plasma urea nitrogen measurement (mass/volume ) 5 mg/dL 7-18 Serum or plasma creatinine measurement (mass/volume) 0.80 mg/dL 0.60-1.30 Serum or plasma urea nitrogen/creatinine mass ratio 6 NRG Serum or plasma creatinine measurement w ith calculation of estimated glomerular filtration rate > NRG Serum or plasma glucose measurement (mass/volume) 144 mg/dL 70-105 Serum or plasma calcium measurement (mass/volume) 7.3 mg/dL 8.5-10.1 Serum or plasma total bilirubin measurement (mass/volu me) 0.2 mg/dL 0.1-1.0 Serum or plasma alkaline phosphatase harry surement (enzymatic activity/volume) 152 U/L 40-136 Serum or plasma aspartate aminotransfera se measurement (enzymatic activity/volume) 47 U/L 5-34 Serum or plasma alanine aminotransferase measurement (enzymatic activity/volume) 21 U/L 0-55 Serum or plasma protein measurement (mass/volume) 7.6 g/dL 6.4-8.2 Serum or plasma albumin measurement (mass/volume) 3.2 g/dL 3.2-4.5 CALCIUM CORRECTED 7.9 mg/dL 8.5-10.1 Magnesium - 12/10/19 20:45 Magnesium 1.0 mg/dL 1.6-2.4 Encounters ACCT No. Visit Date/Time Discharge Status Pt. Type Provider Facility Loc./Unit Complaint [id number] 10/25/2019 14:15:00 10/25/2019 23:59: 59 [id number] 10/25/2019 14:15:00 Document Registration [id number] 10/09/2019 16:00:00 Document Registration [id number] 08/24/2019 09:40:00 Document Registration [id number] 05/23/2019 15:10:00 Document Registration [id number] 05/09/2019 14:15:00 Document Registration [id number] 04/29/2019 08:45:00 Document Registration [id number] 01/10/2019 10:45:00 Document Registration [id number] 10/28/2019 09:31:00 10:30:00 DIS Outpatient ELMER VALERIO DO [facility] ER FS ABD LAB RESULTS [id number] 10/09/2019 17:29:00 18:10:00 DIS Emergency SAADIA CANTU, LAKSHMI Sinclair [facility] ER FS BACK PAIN [id number] 09/08/2019 09:56:00 11:15:00 DIS Emergency ELMER VALERIO DO [facility] ER FS CHEST PAIN [id number] 06/02/2019 21:41:00 23:41:00 DIS Emergency RAHUL WEATHERS DO [facility] ER FS RIGHT FLANK PAIN [id number] 05/26/2019 14:53:00 17:39:00 DIS Emergency CAMERON PEÑA MD [facility] ER FS VOMITING [id number] 01/21/2019 09:21:00 11:30:00 DIS Outpatient NAA BALDERRAMA DO [facility] ENDO VOMITING/EPIGASTRIC BUFFY N [id number] 01/17/2019 05:39:00 11:03:00 DIS Outpatient NAA BALDERRAMA DO [facility] PREOP EGD [id number] 01/13/2019 13:37:00 16:59:00 DIS Emergency JASSI ARCINIEGA DO [facility] ER FS VOMITING,STOMACH PAIN [id number] 01/01/2019 10:46:00 14:22:00 DIS Emergency PAUL NATHAN DO [facility] ER FS VOMITING [id number] 12/10/2018 10:57:00 15:09:00 DIS Emergency LES CANTU, SONNY Lai [facility] ER FS NAUSEA VOMITI NG [id number] 12/10/2019 21:10:00 Document Registration
[2019-12-10] MEDS ORDERED: ACETAMINOPHEN 500 MG TAB (TYLENOL) ONE (23:43)
[2019-12-10] MEDS ORDERED: ACETAMINOPHEN 500 MG TAB (TYLENOL) PO ONE (23:45)
--- NOTE | 2019-12-11 00:56 | NUR ---
PT. STATED HER ESCOBAR WAS MUCH BETTER.
--- NOTE | 2019-12-11 03:08 | NUR ---
PAGED EMS AT [id number]. EMS IS BACK IN [place]OWN AND IS COMING FOR THE TRANSFER.
[2019-12-11] MEDS ORDERED: ALPRAZolam 0.25 MG (XANAX) TAB PO PRN (03:45)
[2019-12-11] MEDS ORDERED: polyethylene glycoL POWDER 17 GM (MIRALAX) PACK PO PRN (03:45)
[2019-12-11] MEDS ORDERED: guaiFENesin/DM (ROBITUSSIN DM) 10 ML UDC PO PRN (03:45)
[2019-12-11] MEDS ORDERED: DOCUSATE SODIUM 100 MG (COLACE) CAP PO PRN (03:45)
[2019-12-11] MEDS ORDERED: ONDANSETRON 4 MG/2 ML (SDV) Z0FRAN IVP PRN (03:45)
[2019-12-11] MEDS ORDERED: fentaNYL INJECTION 100 MCG/2 ML AMP IVP PRN (03:45)
[2019-12-11] MEDS ORDERED: ACETAMINOPHEN 325 MG TABLET PO PRN ×2 (03:45→16:00)
[2019-12-11] MEDS ORDERED: MELATONIN 3 MG TABLET PO PRN (03:45)
[2019-12-11] MEDS ORDERED: IBUPROFEN TABLET 200 MG TAB PO PRN (03:45)
[2019-12-11] MEDS ORDERED: diphenhydrAMINE 25 MG TAB (BENADRYL) PO PRN (03:45)
[2019-12-11] MEDS: ENOXAPARIN 40 MG/0.4 ML (LOVENOX) SYR SC SCH (07:51)
[2019-12-11 08:00] VITALS: BP 153/78
[2019-12-11] MEDS ORDERED: AMOX1TAB12 PO (08:30)
[2019-12-11] MEDS ORDERED: METO5TAB2 PO (08:31)
[2019-12-11] MEDS ORDERED: DICY20TA10 PO (08:31)
[2019-12-11] MEDS ORDERED: ACET325T38 PO (08:32)
[2019-12-11 09:45] LABS: BUN/CREATININE RATIO 6; CALCIUM 7.5 MG/DL (8.5-10.1); CARBON DIOXIDE 26 MMOL/L (21-32); CHLORIDE 108 MMOL/L (98-107); CREATININE SERUM 0.78 MG/DL (0.60-1.30); GFR ESTIMATED > 60; GLUCOSE 134 MG/DL (70-105); MAGNESIUM 1.8 MG/DL (1.6-2.4); POTASSIUM 2.7 MMOL/L (3.6-5.0); SODIUM 145 MMOL/L (135-145)
--- NOTE | 2019-12-11 10:29 | History & Physical-Hospitalist ---
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 Patient feels better this morning and is hoping she can go home. Repeat labs reveal only a slight increase in levels to 2.7 so we will increase IV and PO supplementation and intend for DC tomorrow in the meantime I will restart her home meds including ACEi to help hold potassium and then add low dose Aldactone 25mg to also retain potassium. Source: patient Exam Limitations: no limitations Date Seen 12/11/19 Time Seen by a Provider: 09:30 Attending Physician Swapna Joe DO PCP Davon Martinez MD Referring Physician Date of Admission Dec 10, 2019 at 22:00 Home Medications & Allergies Home Medications Reviewed patient Home Medication Reconciliation performed by pharmacy medication reconciliations tap and die maker technician and/or nursing. Patients Allergies have been reviewed. Allergies Allergies Coded Allergies codeine (Verified Allergy, Intermediate, itching, nausea and vomiting., 01/17/19) morphine (Verified Allergy, Intermediate, itching, nausea and vomiting, 01/17/19) Sulfa (Sulfonamide Antibiotics) (Verified Allergy, Unknown, 01/17/19) Past Seybbfr-Xnpvdx-Nigxev Hx Past Med/Social Hx: Reviewed Nursing Past Med/Soc Hx, Reviewed and Corrections made Patient Social History Marrital Status: (50 yrs) Employed/Student: retired (RN [employer] 30+ years) Alcohol Use: Denies Use Smoking Status: Never a Smoker Type Used: Cigarettes 2nd Hand Smoke Exposure: Yes Recent Foreign Travel: No Contact w/other who traveled: No Recent Hopitalizations: No Recent Infectious Disease Expo: No Immunizations Up To Date Date of Pneumonia Vaccine: Oct 12, 2019 Date of Influenza Vaccine: Jun 25, 2019 Seasonal Allergies Seasonal Allergies: No Past Medical History Surgeries: Appendectomy, Gallbladder, Hysterectomy, Orthopedic Cardiac: Hypertension Sexually Transmitted Disease: No HIV/AIDS: No Endocrine: Diabetes, Non-Insulin dep Loss of Vision: Bilateral Hearing Impairment: Denies History of Blood Disorders: No Review of Systems Constitutional: see HPI, weakness EENTM: no symptoms reported Respiratory: no symptoms reported Cardiovascular: no symptoms reported Gastrointestinal: no symptoms reported Genitourinary: no symptoms reported Musculoskeletal: no symptoms reported Skin: no symptoms reported Psychiatric/Neurological: Anxiety, Headache All Other Systems Reviewed Negative Unless Noted: Yes Physical Exam Physical Exam Vital Signs Vital Signs - First Documented 12/10/19 12/11/19 20:20 00:32 Temp 36.1 Pulse 101 Resp 16 B/P (MAP) 161/83 (109) Pulse Ox 95 O2 Delivery Room Air Capillary Refill : Less Than 3 SecondsLess Than 3 Seconds Height, Weight, BMI Height: 5'4.00" Weight: 178lbs. 0.0oz. 80.700380cm; 27.68 BMI Method:Stated General Appearance: No Apparent Distress Eyes: Right Eye Normal Inspection, Right Eye PERRL HEENT: PERRL/EOMI, TMs Normal, Normal ENT Inspection, Pharynx Normal, Moist Mucous Membranes Neck: Full Range of Motion, Normal Inspection, Non Tender Respiratory: Chest Non Tender, Lungs Clear, Normal Breath Sounds, No Accessory Muscle Use, No Respiratory Distress Cardiovascular: Regular Rate, Rhythm, No Edema, No Gallop, No JVD, No Murmur, Normal Peripheral Pulses Gastrointestinal: Normal Bowel Sounds, No Organomegaly, No Pulsatile Mass, Non Tender, Soft Back: Normal Inspection, No CVA Tenderness, No Vertebral Tenderness Extremity: Normal Capillary Refill, Normal Inspection, Normal Range of Motion, Non Tender, No Calf Tenderness, No Pedal Edema Neurologic/Psychiatric: Alert, Oriented x3, No Motor/Sensory Deficits, Normal Mood/Affect Skin: Normal Color, Warm/Dry Lymphatic: No Adenopathy Results Results/Procedures Labs Laboratory Tests 12/10/19 20:45 12/11/19 09:15 Patient resulted labs reviewed. Assessment/Plan Admission Diagnosis Assessment: Refractory and severe hypokalemia with severe weakness Headache from sinus infection placed on abx 3 days ago will continue Hypomagnesemia HTN Anxiety Depression DM Plan: IV potassium IV mag Home meds Add Aldactone ACEi home med Admission Status: Inpatient Order (span 2 midnights) Reason for Inpatient Admission: Refractory hypokalemia Diagnosis/Problems Diagnosis/Problems (1) Hypokalemia Status: Acute (2) Hypertension (3) Sinus headache (4) Diabetes (5) Hypomagnesemia Status: Acute (6) Headache Status: Acute Clinical Quality Measures DVT/VTE Risk/Contraindication: Risk Factor Score Per Nursin RFS Level Per Nursing on Admit: 3=High SWAPNA JOE DO Dec 11, 2019 10:29
[2019-12-11] MEDS ORDERED: KCL 20 MEQ TAB (K-DUR) PO NR ×2 (10:30→15:30)
--- NOTE | 2019-12-11 10:34 | NUR ---
SPOKE WITH THE PT, WENT THRU THE EXT MED HISTORY AND CALLED [facility] TO COMPLETE THE MED REC HCTZ: PT SAID SHE HAD BEEN TAKING THIS MEDICATION BUT THOUGHT IT HAD BEEN AWHILE SINCE SHE HAD FILLED IT. WHEN I CALLED BOTH THE PHARMACIES LISTED ABOVE NEITHER HAD THE MED LISTED. WHEN I ASKED THE PT ABOUT THIS SHE HAD IT MUST HAVE BEEN A LONG TIME SINCE SHE HAD IT. DICYCLOMINE 20MG: THE DIRECTIONS ON THE EXT MED HISTORY SHOW " 1 TAB QID AC" HOWEVER THE PT SAYS SHE IS JUST TAKING 1 TAB DAILY METOCLOPRAMIDE 5MG: DIRECTIONS ON THE MED REC SHOW "1 TAB BID AC" HOWEVER THE PT SAYS SHE IS JUST TAKING 1 TAB DAILY OTC MEDS: TYLENOL MAGNESIUM
[2019-12-11] MEDS: POTASSIUM CL 10MEQ/50ML IVPB 50 ML IV SCH ×5 (10:46→15:20)
[2019-12-11] MEDS ORDERED: KCL 20 MEQ TAB (K-DUR) PO SCH (14:00)
[2019-12-11] MEDS ORDERED: SPIRONOLACTONE 25 MG (ALDACTONE) TAB PO NR (16:00)
[2019-12-11 16:34] VITALS: BP 152/76
[2019-12-11] MEDS: MAGNESIUM OXIDE (MAG-OX)400 MG TAB PO SCH (16:43)
[2019-12-11] MEDS: KCL 20 MEQ TAB (K-DUR) PO SCH ×2 (16:44→20:58)
[2019-12-11] MEDS: AUGMENTIN 875 MG TAB (AMOXICILLIN/CLAVULANATE) PO SCH (16:49)
[2019-12-11 23:40] VITALS: BP_SYST 156; BP_SYST 186; BP_DIAS 74; BP_DIAS 83
[2019-12-12] MEDS: KCL 20 MEQ TAB (K-DUR) PO SCH ×3 (01:01→08:34)
[2019-12-12] MEDS: AUGMENTIN 875 MG TAB (AMOXICILLIN/CLAVULANATE) PO SCH (05:46)
[2019-12-12] MEDS: MAGNESIUM OXIDE (MAG-OX)400 MG TAB PO SCH (05:46)
[2019-12-12 05:57] LABS: BASOPHILS % (AUTO) 0 % (0-10); EOSINOPHILS # (AUTO) 0.1 10^3/uL (0.0-0.3); EOSINOPHILS % (AUTO) 1 % (0-10); HEMATOCRIT 36 % (35-52); LYMPHOCYTES # (AUTO) 1.7 X 10^3 (1.0-4.0); LYMPHOCYTES % (AUTO) 19 % (12-44); MEAN CORPUSCULAR HEMOGLOBIN 27 PG (25-34); MEAN CORPUSCULAR HGB CONC 33 G/DL (32-36); MEAN CORPUSCULAR VOLUME 83 FL (80-99); MEAN PLATELET VOLUME 10.4 FL (7.4-10.4); MONOCYTES # (AUTO) 0.4 X 10^3 (0.0-1.0); MONOCYTES % (AUTO) 5 % (0-12); NEUTROPHILS # (AUTO) 6.5 X 10^3 (1.8-7.8); NEUTROPHILS % (AUTO) 75 % (42-75); PLATELET COUNT 241 10^3/uL (130-400); RED CELL DISTRIBUTION WIDTH 14.7 % (10.0-14.5); WHITE BLOOD COUNT 8.7 10^3/uL (4.3-11.0)
[2019-12-12 06:28] LABS: ALANINE AMINOTRANSFERASE 40 U/L (0-55); ALBUMIN 3.3 GM/DL (3.2-4.5); ALKALINE PHOSPHATASE 173 U/L (40-136); BILIRUBIN,TOTAL 0.3 MG/DL (0.1-1.0); BUN/CREATININE RATIO 9; CALCIUM 8.6 MG/DL (8.5-10.1); CARBON DIOXIDE 26 MMOL/L (21-32); CHLORIDE 110 MMOL/L (98-107); CREATININE SERUM 0.78 MG/DL (0.60-1.30); GFR ESTIMATED > 60; GLUCOSE 116 MG/DL (70-105); MAGNESIUM 1.6 MG/DL (1.6-2.4); POTASSIUM 3.8 MMOL/L (3.6-5.0); SODIUM 146 MMOL/L (135-145); TOTAL PROTEIN 7.5 GM/DL (6.4-8.2)
[2019-12-12] MEDS ORDERED: METOCLOPRAMIDE 5 MG (REGLAN) TAB PO SCH (07:00)
[2019-12-12] MEDS ORDERED: VENlafaxine XR 75 MG (EFFEXOR XR) CAP PO SCH (07:00)
[2019-12-12 08:00] VITALS: BP_SYST 138; BP_SYST 142; BP_DIAS 69; BP_DIAS 79
[2019-12-12] MEDS: ENOXAPARIN 40 MG/0.4 ML (LOVENOX) SYR SC SCH (08:33)
[2019-12-12] MEDS ORDERED: DICYCLOMINE 10 MG (BENTYL) CAP PO SCH (09:00)
[2019-12-12] MEDS ORDERED: SPIRONOLACTONE 25 MG (ALDACTONE) TAB PO SCH (09:00)
[2019-12-12] MEDS ORDERED: PANTOPRAZOLE 20 MG TABLET (PROTONIX) PO SCH (09:00)
[2019-12-12] MEDS ORDERED: NON-FORMULARY MEDICATION 1 EA EA (Dicyclomine HCl 20 MG) PO SCH (09:00)
[2019-12-12] MEDS ORDERED: NON-FORMULARY MEDICATION 1 EA EA (Venlafaxine HCl (Effexor Xr) 150 MG) PO SCH (09:00)
[2019-12-12] MEDS ORDERED: lisINopril 20 MG (PRINIVIL) TABLET PO SCH (09:00)
[2019-12-12] MEDS ORDERED: MAGN400T29 PO (10:49)
[2019-12-12] MEDS ORDERED: SPIR25TA5 PO (10:49)
[2019-12-12] MEDS ORDERED: POTA20TA15 PO (10:49)
--- NOTE | 2019-12-12 10:50 | Discharge Summary ---
Discharge Summary Hospital Course Was the Problem List Reviewed?: Yes Problems/Dx: (1) Hypokalemia Status: Acute (2) Hypertension (3) Sinus headache (4) Diabetes (5) Hypomagnesemia Status: Acute (6) Headache Status: Acute Hospital Course Date of Admission: Dec 11, 2019 at 10:31 Admission Diagnosis : Family Physician/Provider: Davon Martinez MD Date of Discharge: 12/12/19 Discharge Diagnosis: Hypokalemia severe and refractory, hypomagnesemia severe, HTN Hospital Course: Short course after admitted and placed on aggressive IV potassium and PO potassium along with magnesium. Aldactone started along with ACEi home dose in addition to potassium supplement along with mag oxide BID and patient was satisfactorily replaced with potassium 3.8 on day of DC and will have close f/u with labs on Monday Labs and Pending Lab Test: Laboratory Tests 12/12/19 05:39: White Blood Count 8.7, Red Blood Count 4.38, Hemoglobin 12.0, Hematocrit 36, Mean Corpuscular Volume 83, Mean Corpuscular Hemoglobin 27, Mean Corpuscular Hemoglobin Concent 33, Red Cell Distribution Width 14.7H, Platelet Count 241, Mean Platelet Volume 10.4, Neutrophils (%) (Auto) 75, Lymphocytes (%) (Auto) 19, Monocytes (%) (Auto) 5, Eosinophils (%) (Auto) 1, Basophils (%) (Auto) 0, Neutrophils # (Auto) 6.5, Lymphocytes # (Auto) 1.7, Monocytes # (Auto) 0.4, Eosinophils # (Auto) 0.1, Basophils # (Auto) 0.0, Sodium Level 146H, Potassium Level 3.8, Chloride Level 110H, Carbon Dioxide Level 26, Anion Gap 10, Blood Urea Nitrogen 7, Creatinine 0.78, Estimat Glomerular Filtration Rate > 60, BUN/Creatinine Ratio 9, Glucose Level 116H, Calcium Level 8.6, Corrected Calcium 9.2, Magnesium Level 1.6, Total Bilirubin 0.3, Aspartate Amino Transf (AST/SGOT) 81H, Alanine Aminotransferase (ALT/SGPT) 40, Alkaline Phosphatase 173H, Total Protein 7.5, Albumin 3.3 Home Meds Active Potassium Chloride 20 Meq Tab.er.prt 20 Meq PO BID Spironolactone 25 Mg Tablet 25 Mg PO DAILY Magox 400 (Magnesium Oxide) 400 Mg Tablet 400 Mg PO BID Reported Tylenol (Acetaminophen) 325 Mg Tablet 650 Mg PO Q8H PRN Metoclopramide HCl 5 Mg Tablet 5 Mg PO DAILY Dicyclomine HCl 20 Mg Tablet 20 Mg PO DAILY Amox Tr-K Clv 875-125 mg Tab (Amoxicillin/Potassium Clav) 1 Each Tablet 1 Ea PO Q12H FILLED 12-06-2019 #14/7 DAY SUPPLY Atorvastatin Calcium 10 Mg Tablet 10 Mg PO DAILY Effexor Xr (Venlafaxine HCl) 150 Mg Cap.er.24h 150 Mg PO DAILY Omeprazole 20 Mg Tablet.dr 20 Mg PO DAILY Lisinopril 20 Mg Tablet 20 Mg PO DAILY Assessment/Pt Instructions [facility] Monday Discharge Planning: <30 minutes discharge planning Discharge Instructions Discharge Diet: No Restrictions Pneumonia Vaccine Order Indica: Yes Discharge Physical Examination Vital Signs Vital Signs Date Time Temp Pulse Resp B/P (MAP) Pulse Ox O2 Delivery O2 Flow Rate FiO2 12/12/19 08:00 36.7 99 18 142/79 (100) 96 Room Air General Appearance: No Apparent Distress, WD/WN Respiratory: Normal Breath Sounds Cardiovascular: Regular Rate, Rhythm Allergies: Coded Allergies: codeine (Verified Allergy, Intermediate, itching, nausea and vomiting., 01/17/19) morphine (Verified Allergy, Intermediate, itching, nausea and vomiting, 01/17/19) Sulfa (Sulfonamide Antibiotics) (Verified Allergy, Unknown, 01/17/19) Discharge Summary Date of Admission Dec 11, 2019 at 10:31 Date of Discharge Discharge Date: Dec 12, 2019 Admission Diagnosis Assessment: Refractory and severe hypokalemia with severe weakness Headache from sinus infection placed on abx 3 days ago will continue Hypomagnesemia HTN Anxiety Depression DM Plan: IV potassium IV mag Home meds Add Aldactone ACEi home med Discharge Diagnosis (1) Hypokalemia Status: Acute (2) Hypertension (3) Sinus headache (4) Diabetes (5) Hypomagnesemia Status: Acute (6) Headache Status: Acute Clinical Quality Measures DVT/VTE Risk/Contraindication: Risk Factor Score Per Nursin RFS Level Per Nursing on Admit: 3=High VIKASH MARIE DO Dec 12, 2019 10:50
[2019-12-12 11:59] VITALS: BP 142/79
== END 2019-12-12 11:55 | disposition home or self-care (01) | DRG 641 ==
LOC: EDUNIT# 20:17 → ER FS 20:18 → 4TH 22:00 → OBSVTOIN 12-11 10:31
PROVIDERS: ADMIT Internal Medicine; ATTEND Internal Medicine
DX: E87.6 Hypokalemia (principal); J32.9 Chronic sinusitis, unspecified; E83.42 Hypomagnesemia; I10 Essential (primary) hypertension; E11.9 Type 2 diabetes mellitus without complications; F41.9 Anxiety disorder, unspecified; F32.9 Major depressive disorder, single episode, unspecified; Z91.14 Patient's other noncompliance with medication regimen; Z77.22 Contact with and (suspected) exposure to environmental tobacco smoke (acute) (chronic)
CPT/HCPCS: 36415; 70450; 80048; 80053; 83735; 85025; 93041; G0378

== ENCOUNTER 2020-01-28 12:51 | Emergency (ER) | payer MEDICARE, MEDICAID ==
[~2020-01-28] VITALS: Ht 160 cm; Wt 75.8 kg
[~2020-01-28 12:51] MED LIST changes: +ACET325T38 PO; +AMOX1TAB12 PO; +SPIR25TA5 PO
--- NOTE | 2020-01-28 13:14 | ED Lower Extremity ---
General Chief Complaint: Lower Extremity Stated Complaint: LT LEG INJ Nursing Triage Note: Patient reports falling about 2 weeks ago and having pain in her L knee ever since. reports has been taking tylenol without improvement. Nursing Sepsis Screen: No Definite Risk Source: patient Exam Limitations: no limitations History of Present Illness Date Seen by Provider: January 28, 2020 Time Seen by Provider: 13:09 Initial Comments Knee injury 2 wks ago when coming down steps. [place] pain and knee giving way. Since then not getting better, no swelling and having Pain w movement. Has not seen Allergies and Home Medications Allergies Coded Allergies: codeine (Verified Allergy, Intermediate, itching, nausea and vomiting., 01/17/19) morphine (Verified Allergy, Intermediate, itching, nausea and vomiting, 01/17/19) Sulfa (Sulfonamide Antibiotics) (Verified Allergy, Unknown, 01/17/19) Home Medications Acetaminophen 325 Mg Tablet, 650 MG PO Q8H PRN for PAIN-MILD (1-4), (Reported) Amoxicillin/Potassium Clav 1 Each Tablet, 1 EA PO Q12H, (Reported) FILLED 12-06-2019 #14/7 DAY SUPPLY Atorvastatin Calcium 10 Mg Tablet, 10 MG PO DAILY, (Reported) Dicyclomine HCl 20 Mg Tablet, 20 MG PO DAILY, (Reported) Lisinopril 20 Mg Tablet, 20 MG PO DAILY, (Reported) Magnesium Oxide 400 Mg Tablet, 400 MG PO BID Prescribed by: VIKASH MARIE on 12/12/19 104 Metoclopramide HCl 5 Mg Tablet, 5 MG PO DAILY, (Reported) Omeprazole 20 Mg Tablet.dr, 20 MG PO DAILY, (Reported) Potassium Chloride 20 Meq Tab.er.prt, 20 MEQ PO BID Prescribed by: VIKASH MARIE on 12/12/19 104 Spironolactone 25 Mg Tablet, 25 MG PO DAILY Prescribed by: VIKASH MARIE on 12/12/19 1049 Venlafaxine HCl 150 Mg Cap.er.24h, 150 MG PO DAILY, (Reported) Patient Home Medication List Home Medication List Reviewed: Yes Review of Systems Constitutional: no symptoms reported Respiratory: no symptoms reported Cardiovascular: no symptoms reported Gastrointestinal: No abdominal pain, No nausea, No vomiting Musculoskeletal: No back pain; joint pain (left knee); No joint swelling, No muscle pain Past Wmxtyrt-Uxmbgx-Tvhbux Hx Past Med/Social Hx: Reviewed Nursing Past Med/Soc Hx Patient Social History Alcohol Use: Denies Use Recreational Drug Use: No Smoking Status: Current Everyday Smoker Type Used: Cigarettes 2nd Hand Smoke Exposure: Yes Recent Foreign Travel: No Contact w/Someone Who Travel: No Recent Infectious Disease Expo: No Recent Hopitalizations: No Immunizations Up To Date Date of Pneumonia Vaccine: Oct 12, 2019 Date of Influenza Vaccine: Jun 25, 2019 Seasonal Allergies Seasonal Allergies: No Past Medical History Surgeries: Yes (knee arth bilat, right shoulder; back) Appendectomy, Gallbladder, Hysterectomy, Orthopedic Respiratory: No Cardiac: Yes (low potassium, low magnesium) Hypertension Neurological: No Sexually Transmitted Disease: No HIV/AIDS: No Genitourinary: No Gastrointestinal: Yes (EPIGASTRIC PAIN, N/V) Musculoskeletal: No Endocrine: No Diabetes, Non-Insulin dep HEENT: No (GLASSES) Loss of Vision: Bilateral Hearing Impairment: Denies Cancer: No Psychosocial: No Integumentary: No Blood Disorders: No Physical Exam Vital Signs Vital Signs - First Documented 01/28/20 12:54 Temp 36.5 Pulse 83 Resp 18 B/P (MAP) 173/74 (107) Pulse Ox 99 Capillary Refill : Less Than 3 Seconds Height, Weight, BMI Height: 5'4.00" Weight: 178lbs. 0.0oz. 80.336370ul; 29.00 BMI Method:Stated General Appearance: WD/WN, no apparent distress Hips: bilateral hip non-tender, bilateral hip normal inspection, bilateral hip normal range of motion, bilateral hip no evidence of injury Knees: left knee normal inspection, left knee normal range of motion Ankles: left ankle non-tender, left ankle normal inspection, left ankle normal range of motion Feet: left foot non-tender, left foot normal inspection, left foot normal range of motion Neurologic/Tendon: normal sensation, normal motor functions, normal tendon functions, other (LCL tenderness left knee) Neurologic/Psychiatric: no motor/sensory deficits Skin: normal color, warm/dry Progress/Results/Core Measures Results/Orders My Orders Orders - SHAYY BALLESTEROS DO Nursing Communication (Order) (01/28/20 13:07) Knee 3 View Left (01/28/20 13:07) Knee Immobilizer (01/28/20 13:16) Vital Signs/I&O 01/28/20 01/28/20 12:54 13:30 Temp 36.5 36.5 Pulse 83 83 Resp 18 18 B/P (MAP) 173/74 (107) 173/74 (107) Pulse Ox 99 99 Blood Pressure Mean: 107 Departure Impression Primary Impression: Sprain of LCL joint of knee Qualified Codes: S83.422A - Sprain of lateral collateral ligament of left knee, initial encounter Disposition: HOME, SELF-CARE Condition: Stable Departure-Patient Inst. Referrals: ALFREDO LEON MD (PCP/Family) Primary Care Physician Patient Instructions: Ligament Injuries in the Knee (DC) Add. Discharge Instructions: Call your Primary Doctor to make a follow up appointment in 2 weeks. Wear your knee brace daily and for all activity. Remove for showering and getting dressed. All discharge instructions reviewed with patient and/or family. Voiced understanding. SHAYY BALLESTEROS DO January 28, 2020 13:14
--- NOTE | 2020-01-28 13:25 | Diagnostic Imaging Report ---
INDICATION: Fall with left-sided knee pain. TECHNIQUE: AP, oblique, and lateral views of the left knee were obtained. FINDINGS: No fracture or acute bony abnormality is seen. The joint spaces are unremarkable. There is no overt joint effusion. IMPRESSION: Negative left knee. Dictated by: Dictated on workstation # [id number]
[2020-01-28 13:30] VITALS: BP 173/74
--- OUTSIDE RECORDS SUMMARY | 2020-01-28 15:42 | XMS REPORT | Continuity of Care Document ---
Author Organization Unknown Address Unknown Phone Unavailable Allergies Active Description Code Type Severity Reaction Onset Reported/Identified Relationship to Patient Clinical Status Yes SULFA SULFA Moderate itching, nausea 12/10/2018 Yes codeine [id number] Drug Allergy Moderate itching, nausea 01/17/2019 Yes morphine [id number] Drug Allergy Moderate itching, nausea 01/17/2019 Yes Sulfa (Sulfonamide Antibiotics) [id number] Drug Allergy Unknown N/A 019 Medications There is no data. Problems Date Dx Coded Attending Type Code Diagnosis Diagnosed By 06/20/2016 G47.33 Obs tructive sleep apnea (adult) (pediatric) SEBASTIAN CANTU, SVITLANA 12/10/2018 SONNY SALDANA MD Ot N39.0 URINARY TRACT INFECTION, SITE NOT SPECIF 12/10/2018 SONNY SALDANA MD Ot R11.2 NAUSEA WITH VOMITING, UNSPECIFIED 12/10/2018 SONNY SALDANA MD, Ot Z88.2 ALLERGY STATUS TO SULFONAMIDES STATUS 12/10/2018 SONNY SALDANA MD Ot Z88.5 ALLERGY STATUS TO NARCOTIC AGENT STATUS 12/12/2018 SONNY SALDANA MD Ot N39.0 URINARY TRACT INFECTION, SITE NOT SPECIF 12/12/2018 SONNY SALDANA MD Ot R11.2 NAUSEA WITH VOMITING, UNSPECIFIED 12/12/2018 SONNY SALDANA MD Ot Z88.2 ALLERGY STATUS TO SULFONAMIDES STATUS 12/12/2018 SONNY SALDANA MD Ot Z88.5 ALLERGY STATUS TO NARCOTIC AGENT STATUS 01/01/2019 PAUL NATHAN DO Ot E87.6 HYPOKALEMIA 01/01/2019 PAUL NATHAN DO Ot I10 ESSENTIAL (PRIMARY) HYPERTENSION 01/01/2019 PAUL NATHAN DO Ot R10.13 EPIGASTRIC PAIN 01/01/2019 PAUL NATHAN DO Ot R11.2 NAUSEA WITH VOMITING, UNSPECIFIED 01/01/2019 PAUL NATHAN DO Ot Z77.22 CNTCT W AND EXPSR TO ENVIRON TOBACCO SMO 01/01/2019 NATHAN DO, PAUL Ot Z88.2 ALLERGY STATUS TO SULFONAMIDES STATUS 01/01/2019 NATHAN DO, PAUL Ot Z88.5 ALLERGY STATUS TO NARCOTIC AGENT STATUS 01/01/2019 NATHAN DO, PAUL Ot Z90.49 ACQUIRED ABSENCE OF OTHER SPECIFIED PART 01/01/2019 NATHAN DO PAUL Ot Z90.710 ACQUIRED ABSENCE OF BOTH CERVIX AND UTER 01/13/2019 JASSI ARCINIEGA DO Ot E11.9 TYPE 2 DIABETES MELLITUS WITHOUT COMPLIC 01/13/2019 JASSI ARCINIEGA DO Ot E87.6 HYPOKALEMIA 01/13/2019 JASSI ARCINIEGA DO Ot I1 0 ESSENTIAL (PRIMARY) HYPERTENSION 01/13/2019 JASSI ARCINIEGA DO Ot N39.0 URINARY TRACT INFECTION, SITE NOT SPECIF 01/13/2019 JASSI ARCINIEGA DO Ot R11.10 VOMITING, UNSPECIFIED 01/13/2019 JASSI ARCNIIEGA DO Ot Z88.2 ALLERGY STATUS TO SULFONAMIDES STATUS 01/13/2019 JASSI ARCINIEGA DO Ot Z88.5 ALLERGY STATUS TO NARCOTIC AGENT STATUS 01/13/2019 JASSI ARCINIEGA DO Ot Z90.49 ACQUIRED ABSENCE OF OTHER SPECIFIED PART 01/13/2019 JASSI ARCINIEGA DO Ot Z90.710 ACQUIRED ABSENCE OF BOTH CERVIX AND UTER 01/13/2019 JASSI ARCINIEGA DO Ot Z98.890 OTHER SPECIFIED POSTPROCEDURAL STATES 01/15/2019 JASSI ARCINIEGA DO Ot E11.9 TYPE 2 DIABETES MELLITUS WITHOUT COMPLIC 01/15/2019 JASSI ARCINIEGA DO Ot E87.6 HYPOKALEMIA 01/15/2019 JASSI ARCINIEGA DO Ot I1 0 ESSENTIAL (PRIMARY) HYPERTENSION 01/15/2019 JASSI ARCINIEGA DO Ot N39.0 URINARY TRACT INFECTION, SITE NOT SPECIF 01/15/2019 JASSI ARCINIEGA DO Ot R11.10 VOMITING, UNSPECIFIED 01/15/2019 JASSI ARCINIEGA DO Ot Z88.2 ALLERGY STATUS TO SULFONAMIDES STATUS 01/15/2019 SUZE DOJASSI Ot Z88.5 ALLERGY STATUS TO NARCOTIC AGENT STATUS 01/15/2019 JASSI ARCINIEGA DO Ot Z90.49 ACQUIRED ABSENCE OF OTHER SPECIFIED PART 01/15/2019 JASSI ARCINIEGA DO Ot Z90.710 ACQUIRED ABSENCE OF BOTH CERVIX AND UTER 01/15/2019 JASSI ARCINIEGA DO, Ot Z98.890 OTHER SPECIFIED POSTPROCEDURAL STATES 01/15/2019 JASSI ARCINIEGA DO Ot E11.9 TYPE 2 DIABETES MELLITUS WITHOUT COMPLIC 01/15/2019 JASSI ARCINIEGA DO Ot E87.6 HYPOKALEMIA 01/15/2019 JASSI ARCINIEGA DO Ot I1 0 ESSENTIAL (PRIMARY) HYPERTENSION 01/15/2019 [...] BODY MASS INDEX (BMI) 30.0-30.9, ADULT 01/21/2019 TACOS GOVEA, NAA B Ot Z79.8 99 OTHER PRODUCT DEVELOPMENT SPECIALIST (CURRENT) DRUG THERAPY 01/21/2019 TACOS GOVEA, NAA B Ot Z88.2 ALLERGY STATUS TO SULFONAMIDES STATUS 01/21/2019 TACOS DO, NAA B Ot Z88.5 ALLERGY STATUS TO NARCOTIC AGENT STATUS 01/24/2019 TACOS DO, NAA B Ot E66.9 OBESITY, UNSPECIFIED 01/24/2019 TACOS DO, NAA B Ot E78.5 HYPERLIPIDEMIA, UNSPECIFIED 01/24/2019 TACOS DO, NAA B Ot F17.2 10 NICOTINE DEPENDENCE, CIGARETTES, UNCOMPL 01/24/2019 TACOS DO, NAA B Ot I10 ESSENTIAL (PRIMARY) HYPERTENSION 01/24/2019 TACOS DO, NAA B Ot J44.9 CHRONIC OBSTRUCTIVE PULMONARY DISEASE, U 01/24/2019 TACOS DO, NAA B Ot K29.7 0 GASTRITIS, UNSPECIFIED, WITHOUT BLEEDING 01/24/2019 TACOS GOVEA, NAA B Ot K31.8 9 OTHER DISEASES OF STOMACH AND DUODENUM 01/24/2019 TACOS GOVEA, NAA B Ot K44.9 DIAPHRAGMATIC HERNIA WITHOUT OBSTRUCTION 01/24/2019 TACOS GOVEA, NAA B Ot Z68.3 0 BODY MASS INDEX (BMI) 30.0-30.9, ADULT 01/24/2019 TACOS GOVEA, NAA B Ot Z79.8 99 OTHER GROUP HOME (CURRENT) DRUG THERAPY 01/24/2019 TACOS GOVEA, NAA B Ot Z88.2 ALLERGY STATUS TO SULFONAMIDES STATUS 01/24/2019 TACOS GOVEA, NAA B Ot Z88.5 ALLERGY STATUS TO NARCOTIC AGENT STATUS 01/24/2019 TACOS DO, NAA B Ot E66.9 OBESITY, UNSPECIFIED 01/24/2019 TACOS DO, NAA B Ot E78.5 HYPERLIPIDEMIA, UNSPECIFIED 01/24/2019 TACOS DO, NAA B Ot F17.2 10 NICOTINE DEPENDENCE, CIGARETTES, UNCOMPL 01/24/2019 TACOS DO, NAA B Ot I10 ESSENTIAL (PRIMARY) HYPERTENSION 01/24/2019 TACOS DO, NAA B Ot J44.9 CHRONIC OBSTRUCTIVE PULMONARY DISEASE, U 01/24/2019 TACOS DO, NAA B Ot K29.7 0 GASTRITIS, UNSPECIFIED, WITHOUT BLEEDING 01/24/2019 TACOS GOVEA NAA B Ot K31.8 9 OTHER DISEASES OF STOMACH AND DUODENUM 01/24/2019 TACOS GOVEA NAA B Ot K44.9 DIAPHRAGMATIC HERNIA WITHOUT OBSTRUCTION 01/24/2019 TACOS GOVEA NAA B Ot Z68.3 0 BODY MASS INDEX (BMI) 30.0-30.9, ADULT 01/24/2019 WALDO BALDERRAMA DOIC B Ot Z79.8 99 OTHER PRODUCT DEVELOPMENT SPECIALIST (CURRENT) DRUG THERAPY 01/24/2019 TACOS GOVEA NAA B Ot Z88.2 ALLERGY STATUS TO SULFONAMIDES STATUS 01/24/2019 TACOS GOVEA NAA B Ot Z88.5 ALLERGY STATUS TO NARCOTIC AGENT STATUS 01/27/2019 TACOS GOVEA NAA B Ot E66.9 OBESITY, UNSPECIFIED 01/27/2019 TACOS GOVEA, NAA B Ot E78.5 HYPERLIPIDEMIA, UNSPECIFIED 01/27/2019 TACOS GOVEA NAA B Ot F17.2 10 NICOTINE DEPENDENCE, CIGARETTES, UNCOMPL 01/27/2019 TACOS GOVEA NAA B Ot I10 ESSENTIAL (PRIMARY) HYPERTENSION 01/27/2019 WALDO BALDERRAMA DOIC B Ot J44.9 CHRONIC OBSTRUCTIVE PULMONARY DISEASE, U 01/27/2019 WALDO BALDERRAMA DOIC B Ot K29.7 0 GASTRITIS, UNSPECIFIED, WITHOUT BLEEDING 01/27/2019 WALDO BALDERRAMA DOIC B Ot K31.8 9 OTHER DISEASES OF STOMACH AND DUODENUM 01/27/2019 TACOS GOVEA NAA B Ot K44.9 DIAPHRAGMATIC HERNIA WITHOUT OBSTRUCTION 01/27/2019 WALDO BALDERRAMA DOIC B Ot Z68.3 0 BODY MASS INDEX (BMI) 30.0-30.9, ADULT 01/27/2019 WALDO BALDERRAMA DOIC B Ot Z79.8 99 OTHER GROUP HOME (CURRENT) DRUG THERAPY 01/27/2019 WALDO BALDERRAMA DOIC B Ot Z88.2 ALLERGY STATUS TO SULFONAMIDES STATUS 01/27/2019 TACOS GOVEA NAA B Ot Z88.5 ALLERGY [...] AND EXPSR TO ENVIRON TOBACCO SMO 06/02/2019 JASIEL DO, RAHUL M Ot Z88 .2 ALLERGY STATUS TO SULFONAMIDES [...] MD Ot Z98.890 OTHER SPECIFIED POSTPROCEDURAL STATES 10/28/2019 VALERIO DO, ELMER L Ot E11.9 TYPE 2 DIABETES MELLITUS WITHOUT COMPLIC 10/28/2019 VALERIO DO, ELMER L Ot E87.6 HYPOKALEMIA 10/28/2019 VALERIO DO, ELMER L Ot I10 ESSENTIAL (PRIMARY) HYPERTENSION 10/28/2019 VALERIO DO, ELMER L Ot Z77.2 2 CNTCT W AND EXPSR TO ENVIRON TOBACCO SMO 10/28/2019 VALERIO DO, ELMER L Ot Z88.2 ALLERGY STATUS TO SULFONAMIDES STATUS 10/28/2019 VALERIO DO, ELMER L Ot Z88.5 ALLERGY STATUS TO NARCOTIC AGENT STATUS 11/08/2019 VALERIO DO, ELMER L Ot E11.9 TYPE 2 DIABETES MELLITUS WITHOUT COMPLIC 11/08/2019 VALERIO DO, ELMER L Ot E87.6 HYPOKALEMIA 11/08/2019 VALERIO DO, ELMER L Ot I10 ESSENTIAL (PRIMARY) HYPERTENSION 11/08/2019 VALEIRO DO, ELMER L Ot Z77.2 2 CNTCT W AND EXPSR TO ENVIRON TOBACCO SMO 11/08/2019 VALERIO DO, ELMER L Ot Z88.2 ALLERGY STATUS TO SULFONAMIDES STATUS 11/08/2019 VALERIO DO, ELMER L Ot Z88.5 ALLERGY STATUS TO NARCOTIC AGENT STATUS 12/12/2019 MARIE DO, VIKASH Ot E11.9 TYPE 2 DIABETES MELLITUS WITHOUT COMPLIC 12/12/2019 MARIE DO, VIKASH Ot E83.42 HYPOMAGNESEMIA 12/12/2019 MARIE DO, VIKASH Ot E87.6 HYPOKALEMIA 12/12/2019 CYNTHIA DO, VIKASH Ot F32.9 MAJOR DEPRESSIVE DISORDER, SINGLE EPISOD 12/12/2019 MARIE DO, VIKASH Ot F41.9 ANXIETY DISORDER, UNSPECIFIED 12/12/2019 MARIE DO, VIKASH Ot I10 ESSENTIAL (PRIMARY) HYPERTENSION 12/12/2019 MARIE DO, VIKASH Ot J32.9 CHRONIC SINUSITIS, UNSPECIFIED 12/12/2019 MARIE DO, VIKASH Ot Z87.89 1 PERSONAL HISTORY OF NICOTINE DEPENDENCE 12/12/2019 CYNTHIA DO, VIKASH Ot Z91.14 PATIENT'S OTHER NONCOMPLIANCE WITH MEDIC 12/12/2019 CYNTHIA DO, VIKASH Ot E11.9 TYPE 2 DIABETES MELLITUS WITHOUT COMPLIC 12/12/2019 MARIE DO, VIKASH Ot E83.42 HYPOMAGNESEMIA 12/12/2019 MARIE DO, VIKASH Ot E87.6 HYPOKALEMIA 12/12/2019 MARIE DO, VIKASH Ot F32.9 MAJOR DEPRESSIVE DISORDER, SINGLE EPISOD 12/12/2019 MARIE DO, VIKASH Ot F41.9 ANXIETY DISORDER, UNSPECIFIED 12/12/2019 MARIE DO, VIKASH Ot I10 ESSENTIAL (PRIMARY) HYPERTENSION 12/12/2019 MARIE DO, VIKASH Ot J32.9 CHRONIC SINUSITIS, UNSPECIFIED 12/12/2019 MARIE DO, VIKASH Ot Z87.89 1 PERSONAL HISTORY OF NICOTINE DEPENDENCE 12/12/2019 MARIE DO, VIKASH Ot Z91.14 PATIENT'S OTHER NONCOMPLIANCE WITH MEDIC 12/12/2019 MARIE DO, VIKASH Ot E11.9 TYPE 2 DIABETES MELLITUS WITHOUT COMPLIC 12/12/2019 MARIE DO, VIKASH Ot E83.42 HYPOMAGNESEMIA 12/12/2019 MARIE DO, VIKASH Ot E87.6 HYPOKALEMIA 12/12/2019 MARIE DO, VIKASH Ot F32.9 MAJOR DEPRESSIVE DISORDER, SINGLE EPISOD 12/12/2019 MARIE DO, VIKASH Ot F41.9 ANXIETY DISORDER, UNSPECIFIED 12/12/2019 MARIE DO, VIKASH Ot I10 ESSENTIAL (PRIMARY) HYPERTENSION 12/12/2019 MARIE DO, VIKASH Ot J32.9 CHRONIC SINUSITIS, UNSPECIFIED 12/12/2019 MARIE DO, VIKASH Ot Z77.22 CNTCT W AND EXPSR TO ENVIRON TOBACCO SMO 12/12/2019 MARIE DO, VIKASH Ot Z87.89 1 PERSONAL HISTORY OF NICOTINE DEPENDENCE 12/12/2019 MARIE DO, VIKASH Ot Z91.14 PATIENT'S OTHER NONCOMPLIANCE WITH MEDIC 12/19/2019 LAKSHMI ZEE MD Ot E11. 9 TYPE 2 DIABETES MELLITUS WITHOUT COMPLIC 12/19/2019 LAKSHMI ZEE MD Ot G89. 29 OTHER CHRONIC PAIN 12/19/2019 LAKSHMI ZEE MD Ot I10 ESSENTIAL (PRIMARY) HYPERTENSION 12/19/2019 LAKSHMI ZEE MD Ot M54. 5 LOW BACK PAIN 12/19/2019 LAKSHMI ZEE MD Ot Z77. 22 CNTCT W AND EXPSR TO ENVIRON TOBACCO SMO 12/19/2019 LAKSHMI ZEE MD Ot Z88. 2 ALLERGY STATUS TO SULFONAMIDES STATUS 12/19/2019 LAKSHMI ZEE MD Ot Z88. 5 ALLERGY STATUS TO NARCOTIC AGENT STATUS 12/19/2019 LAKSHMI ZEE MD Ot Z90. 49 ACQUIRED ABSENCE OF OTHER SPECIFIED PART 12/19/2019 LAKSHMI EZE MD Ot Z90.710 ACQUIRED ABSENCE OF BOTH CERVIX AND UTER 12/19/2019 LAKSHMI ZEE MD Ot Z98.890 OTHER SPECIFIED POSTPROCEDURAL STATES 12/23/2019 MARIE DO, VIKASH Ot E11.9 TYPE 2 DIABETES MELLITUS WITHOUT COMPLIC 12/23/2019 MARIE DO, VIKASH Ot E83.42 HYPOMAGNESEMIA 12/23/2019 MARIE DO, VIKASH Ot E87.6 HYPOKALEMIA 12/23/2019 MARIE DO, VIKASH Ot F32.9 MAJOR DEPRESSIVE DISORDER, SINGLE EPISOD 12/23/2019 MARIE DO, VIKASH Ot F41.9 ANXIETY DISORDER, UNSPECIFIED 12/23/2019 MARIE DO, VIKASH Ot I10 ESSENTIAL (PRIMARY) HYPERTENSION 12/23/2019 MARIE DO, VIKASH Ot J32.9 CHRONIC SINUSITIS, UNSPECIFIED 12/23/2019 MARIE DO, VIKASH Ot Z77.22 CNTCT W AND EXPSR TO [place] TOBACCO [facility] [place] 12/23/2019 MARIE DO, VIKASH Ot Z91.14 PATIENT'S OTHER NONCOMPLIANCE WITH MEDIC 12/23/2019 MARIE DO, VIKASH Ot E11.9 TYPE 2 DIABETES MELLITUS WITHOUT COMPLIC 12/23/2019 MARIE DO, VIKASH Ot E83.42 HYPOMAGNESEMIA 12/23/2019 MARIE DO, VIKASH Ot E87.6 HYPOKALEMIA 12/23/2019 MARIE DO, VIKASH Ot F32.9 MAJOR DEPRESSIVE DISORDER, SINGLE EPISOD 12/23/2019 MARIE DO, VIKASH Ot F41.9 ANXIETY DISORDER, UNSPECIFIED 12/23/2019 MARIE DO, VIKASH Ot I10 ESSENTIAL (PRIMARY) HYPERTENSION 12/23/2019 MARIE DO, VIKASH Ot J32.9 CHRONIC SINUSITIS, UNSPECIFIED 12/23/2019 MARIE DO, VIKASH Ot Z77.22 CNTCT W AND EXPSR TO [place] TOBACCO SMO 12/23/2019 MARIE DO, VIKASH Ot Z91.14 PATIENT'S OTHER NONCOMPLIANCE WITH MEDIC Procedures Code Description [place] [address] Poly somnography; age 6 years or older, sleep staging with 4 or more additional parameters of sleep, SVITLANA CORTES MD 06/20/2016 25392 Poly somnography; age 6 years or older, sleep staging with 4 or more additional parameters of sleep, SVITLANA CORTES MD 07/11/2016 50892 Poly somnography; age 6 years or older, sleep staging with 4 or more additional parameters of sleep, SVITLANA CORTES MD 07/26/2016 G0202 DIGI ARYAN SCREENING MAMMOGRAM AGAPITO CAREY 01/23/2017 Results Test Result Range Complete urinalysis with [...] 7-25 CREATININE 0.87 mg/dL 0.50-0.99 eGFR NON-AFR. [place] [facility] 70 mL/min/1.73m2 > OR = 60 eGFR [...] 7-25 CREATININE 0.82 mg/dL 0.50-0.99 eGFR NON-AFR. [place] 76 mL/min/1.73m2 > OR = 60 eGFR [...] culture - 06/02/19 23:10 Bacterial urine culture [id number] NRG COLONY COUNT >100,000/ML NRG FTX;REPORTABLE SEE [...] 09/08/19 10:30 CALL POSITIVES (F1 HELP) RN NRG FLU RESULT POSITIVE FOR INFLUENZA B ANT IGEN, NEG FOR A ANTIGEN, BY IA NRG CULTURE, URINE - 10/09/19 00:00 CULTURE, URINE, ROUTINE SEE NOTE NRG A1C - 10/25/19 14:17 HEMOGLOBIN A1c 5.5 [...] - 12/10/19 20:45 Magnesium 1.0 mg/dL 1.6-2.4 Whole blood basic metabolic panel - 11/17 02/04 09:15 Serum or plasma sodium measurement (moles/volume) 145 mmol/L 135-145 Serum or plasma potassium measurement (moles/volume) 2.7 mmol/L 3.6-5.0 Serum or plasma chloride measurement (moles/volume) 108 mmol/L 98-107 Carbon dioxide 26 mmol/L 21-32 Serum or plasma anion gap determination (moles/volume) 11 mmol/L 5-14 Serum or plasma urea nitrogen measurement (mass/volume ) 5 mg/dL 7-18 Serum or plasma creatinine measurement (mass/volume) 0.78 mg/dL 0.60-1.30 Serum or plasma urea nitrogen/creatinine mass ratio 6 NRG Serum or plasma creatinine measurement w ith calculation of estimated glomerular filtration rate > NRG Serum or plasma glucose measurement (mass/volume) 134 mg/dL 70-105 Serum or plasma calcium measurement (mass/volume) 7.5 mg/dL 8.5-10.1 Magnesium - 12/11/19 09:15 Magnesium 1.8 mg/dL 1.6-2.4 Complete blood count (CBC) with automate d white blood cell (WBC) differential - 12/12/19 05:39 Blood leukocytes automated count (number/volume) 8.7 10*3/uL 4.3-11.0 Blood erythrocytes automated count (number/volume) 4.38 10*6/uL 4.35-5.85 Venous blood hemoglobin measurement (mass/volume) 12.0 g/dL 11.5-16.0 Blood hematocrit (volume fraction) 36 % 35-52 Automated erythrocyte mean corpuscular volume 83 [ foz_us] 80-99 Automated erythrocyte mean corpuscular h emoglobin (mass per erythrocyte) 27 pg 25-34 Automated erythrocyte mean corpuscular h emoglobin concentration measurement (mass/volume) 33 g/dL 32-36 Automated erythrocyte distribution width ratio 14. 7 % 10.0- 14.5 Automated blood platelet count (count/volume) 241 10*3/uL 130-400 Automated blood platelet mean volume measurement 10.4 [foz_us] 7.4-10.4 Automated blood neutrophils/100 leukocytes 75 % 42-75 Automated blood lymphocytes/100 leukocytes 19 % 12-44 Blood monocytes/100 leukocytes 5 % 0-12 Automated blood eosinophils/100 leukocytes 1 % 0-10 Automated blood basophils/100 leukocytes 0 % 0-10 Blood neutrophils automated count (number/volume) 6.5 10*3 1.8-7.8 Blood lymphocytes automated count (number/volume) 1.7 10*3 1.0-4.0 Blood monocytes automated count (number/volume) 0. 4 10*3 0.0-1.0 Automated eosinophil count 0.1 10*3/uL 0 .0-0.3 Automated blood basophil count (count/volume) 0.0 10*3/uL 0.0-0.1 Comprehensive metabolic panel - 12/12/19 05:39 Serum or plasma sodium measurement (moles/volume) 146 mmol/L 135-145 Serum or plasma potassium measurement (moles/volume) 3.8 mmol/L 3.6-5.0 Serum or plasma chloride measurement (moles/volume) 110 mmol/L 98-107 Carbon dioxide 26 mmol/L 21-32 Serum or plasma anion gap determination (moles/volume) 10 mmol/L 5-14 Serum or plasma urea nitrogen measurement (mass/volume ) 7 mg/dL 7-18 Serum or plasma creatinine measurement (mass/volume) 0.78 mg/dL 0.60-1.30 Serum or plasma urea nitrogen/creatinine mass ratio 9 NRG Serum or plasma creatinine measurement w ith calculation of estimated glomerular filtration rate > NRG Serum or plasma glucose measurement (mass/volume) 116 mg/dL 70-105 Serum or plasma calcium measurement (mass/volume) 8.6 mg/dL 8.5-10.1 Serum or plasma total bilirubin measurement (mass/volu me) 0.3 mg/dL 0.1-1.0 Serum or plasma alkaline phosphatase harry surement (enzymatic activity/volume) 173 U/L 40-136 Serum or plasma aspartate aminotransfera se measurement (enzymatic activity/volume) 81 U/L 5-34 Serum or plasma alanine aminotransferase measurement (enzymatic activity/volume) 40 U/L 0-55 Serum or plasma protein measurement (mass/volume) 7.5 g/dL 6.4-8.2 Serum or plasma albumin measurement (mass/volume) 3.3 g/dL 3.2-4.5 CALCIUM CORRECTED 9.2 mg/dL 8.5-10.1 Magnesium - 03/26/20 05:39 Magnesium 1.6 mg/dL 1.6-2.4 MAGNESIUM SERUM - 12/23/19 11:11 MAGNESIUM 1.7 mg/dL 1.5-2.5 CBC - 12/23/19 11:11 WHITE BLOOD CELL COUNT 8.2 Thousand/uL 3 .8-10.8 RED BLOOD CELL COUNT 4.95 Million/uL 3.8 0-5.10 HEMOGLOBIN 13.4 g/dL 11.7-15.5 HEMATOCRIT 42.1 % 35.0-45.0 MCV 85.1 fL 80.0-100.0 MCH 27.1 pg 27.0-33.0 MCHC 31.8 g/dL 32.0-36.0 RDW 14.6 % 11.0-15.0 PLATELET COUNT 282 Thousand/uL 140-400 MPV 10.6 fL 7.5-12.5 ABSOLUTE NEUTROPHILS 5527 cells/uL 1500- 7800 ABSOLUTE LYMPHOCYTES 2001 cells/uL 850-3 900 ABSOLUTE MONOCYTES 549 cells/uL 200-950 ABSOLUTE EOSINOPHILS 90 cells/uL 15-500 ABSOLUTE BASOPHILS 33 cells/uL 0-200 NEUTROPHILS 67.4 % NRG LYMPHOCYTES 24.4 % NRG MONOCYTES 6.7 % NRG EOSINOPHILS 1.1 % NRG BASOPHILS 0.4 % NRG Encounters ACCT No. Visit Date/Time Discharge Status Pt. Type Provider Facility Loc./Unit Complaint [id number] 12/25/2019 10:30:00 12/25/2019 23:59: 59 CLS Outpatient [facility] [id number] 12/23/2019 11:00:00 Document Registration [id number] 10/25/2019 14:15:00 Document Registration [id number] 10/09/2019 16:00:00 Document Registration [id number] 08/24/2019 09:40:00 Document Registration [id number] 05/23/2019 15:10:00 Document Registration [id number] 05/09/2019 14:15:00 Document Registration [id number] 04/29/2019 08:45:00 Document Registration [id number] 01/10/2019 10:45:00 Document Registration [id number] 12/11/2019 10:33:00 020 11:55:00 DIS Inpatient CYNTHIA DO, VIKASH V [facility] 4TH SEVERE HYPOKALEMIN,HYOM AGNESEMIA [id number] 10/28/2019 09:31:00 10:30:00 DIS Emergency ELMER VALERIO DO Via [facility] ER FS ABD LAB RESULTS [id number] 10/09/2019 17:29:00 18:10:00 DIS Outpatient LAKSHMI ZEE MD [facility] ER FS BACK PAIN [id number] 09/08/2019 09:56:00 11:15:00 DIS Emergency ELMER VALERIO DO [facility] ER FS CHEST PAIN [id number] 06/02/2019 21:41:00 23:41:00 DIS Emergency RAHUL WEATHERS DO [facility] ER FS RIGHT FLANK PAIN [id number] 05/26/2019 14:53:00 17:39:00 DIS Emergency CAMERON PEÑA MD [facility] ER FS VOMITING [id number] 01/21/2019 09:21:00 11:30:00 DIS Outpatient NAA BALDERRAMA DO [facility] ENDO VOMITING/EPIGASTRIC BUFFY N [id number] 01/17/2019 05:39:00 11:03:00 DIS Outpatient NAA BALDERRAMA DO [facility] PREOP EGD [id number] 01/13/2019 13:37:00 16:59:00 DIS Emergency JASSI ARCINIEGA DO [facility] ER FS VOMITING,STOMACH PAIN [id number] 01/01/2019 10:46:00 14:22:00 DIS Emergency PAUL NATHAN DO [facility] ER FS VOMITING [id number] 12/10/2018 10:57:00 15:09:00 DIS Emergency SONNY SALDANA MD Via [facility] ER FS NAUSEA VOMITI NG [id number] 01/26/2017 00:00:00 DIS Document Registration [id number] 06/20/2016 18:08:00 06/20/2016 23:59 :59 [facility] Outpatient
== END 2020-01-28 13:28 | disposition home or self-care (01) ==
LOC: EDUNIT# 12:51 → ER FS 12:53
DX: S83.422A Sprain of lateral collateral ligament of left knee, initial encounter (principal); I10 Essential (primary) hypertension; F17.210 Nicotine dependence, cigarettes, uncomplicated; Z88.5 Allergy status to narcotic agent; Z88.2 Allergy status to sulfonamides; W10.9XXA Fall (on) (from) unspecified stairs and steps, initial encounter
CPT/HCPCS: 73562

== ENCOUNTER 2020-04-14 10:22 | Emergency (ER) | payer MEDICARE, MEDICAID ==
[~2020-04-14] VITALS: Ht 160 cm; Wt 75.0 kg
[2020-04-14] MEDS ORDERED: ANTACID SUSP 30 ML UDC (MYLANTA) PO STA (10:52)
[2020-04-14] MEDS ORDERED: LIDOCAINE 2% VISCOUS 15 ML UDC PO STA (10:52)
[2020-04-14 10:56] LABS: BASOPHILS % (AUTO) 0 % (0-10); EOSINOPHILS # (AUTO) 0.1 10^3/uL (0.0-0.3); EOSINOPHILS % (AUTO) 1 % (0-10); HEMATOCRIT 43 % (35-52); LYMPHOCYTES # (AUTO) 1.9 X 10^3 (1.0-4.0); LYMPHOCYTES % (AUTO) 17 % (12-44); MEAN CORPUSCULAR HEMOGLOBIN 26 PG (25-34); MEAN CORPUSCULAR HGB CONC 33 G/DL (32-36); MEAN CORPUSCULAR VOLUME 79 FL (80-99); MEAN PLATELET VOLUME 9.8 FL (7.4-10.4); MONOCYTES # (AUTO) 0.7 X 10^3 (0.0-1.0); MONOCYTES % (AUTO) 7 % (0-12); NEUTROPHILS # (AUTO) 7.9 X 10^3 (1.8-7.8); NEUTROPHILS % (AUTO) 74 % (42-75); PLATELET COUNT 278 10^3/uL (130-400); RED CELL DISTRIBUTION WIDTH 15.1 % (10.0-14.5); WHITE BLOOD COUNT 10.6 10^3/uL (4.3-11.0)
--- NOTE | 2020-04-14 10:57 | ED Abdominal Pain ---
General Chief Complaint: Abdominal/GI Problems Stated Complaint: ABD PAIN Nursing Triage Note: PT REPORTS SHE WAS SEEN IN DR. LEE OFFICE LAST WEEK AND RECEIVED A LITER OF NS AND PHENERGAN. SHE FELT PRETTY GOOD FOR A COUPLE OF DAYS BUT STARTED HAVING EPIGASTRIC PAIN WITH NAUSEA AND ONE EPISODE OF VOMITING THIS AM AFTER BREAKFAST. SHE REPORTS SOME DIARRHEA OFF AND ON WELL. MIKY BARAJAS FROM [facility] SENT THE PT Sepsis Screen: No Definite Risk Source of Information: Patient, Old Records, RN/MD Exam Limitations: No Limitations History of Present Illness Date Seen by Provider: Apr 14, 2020 Time Seen by Provider: 10:45 Initial Comments This patient is a 64-year-old female presents to the emerge department complaining of abdominal pain. Patient states that she has long history of the same. Patient states that she has had an upper GI evaluations and everything negative. Patient states sometimes she'll use just comes right back up. Patient had one episode of nausea and vomiting and 1 episode of diarrhea today. Went to the local clinic and advised patient to come to the ER. Patient does not appear to be acutely sick. We'll do medical evaluation treatment is needed Timing/Duration: Constant Severity/Quality: Moderate, Burning, Cramping Radiation: No Radiation Allergies and Home Medications Allergies Coded Allergies: codeine (Verified Allergy, Intermediate, itching, nausea and vomiting., 01/17/19) morphine (Verified Allergy, Intermediate, itching, nausea and vomiting, 01/17/19) Sulfa (Sulfonamide Antibiotics) (Verified Allergy, Unknown, 01/17/19) Home Medications Acetaminophen 325 Mg Tablet, 650 MG PO Q8H PRN for PAIN-MILD (1-4), (Reported) Amoxicillin/Potassium Clav 1 Each Tablet, 1 EA PO Q12H, (Reported) FILLED 12-06-2019 #14/7 DAY SUPPLY Atorvastatin Calcium 10 Mg Tablet, 10 MG PO DAILY, (Reported) Dicyclomine HCl 20 Mg Tablet, 20 MG PO DAILY, (Reported) Lisinopril 20 Mg Tablet, 20 MG PO DAILY, (Reported) Magnesium Oxide 400 Mg Tablet, 400 MG PO BID Prescribed by: VIKASH MARIE on 12/12/19 1047 Metoclopramide HCl 5 Mg Tablet, 5 MG PO DAILY, (Reported) Omeprazole 20 Mg Tablet.dr, 20 MG PO DAILY, (Reported) Potassium Chloride 20 Meq Tab.er.prt, 20 MEQ PO BID Prescribed by: VIKASH MARIE on 12/12/19 104 Spironolactone 25 Mg Tablet, 25 MG PO DAILY Prescribed by: VIKASH MARIE on 12/12/19 1049 Venlafaxine HCl 150 Mg Cap.er.24h, 150 MG PO DAILY, (Reported) Patient Home Medication List Home Medication List Reviewed: Yes Review of Systems Review of Systems Constitutional: No no symptoms reported, No see HPI, No chills, No diaphoresis, No dizziness, No fever, No malaise, No weakness, No weight gain, No weight loss, No other EENTM: No No Symptoms Reported, No See HPI, No Blurred Vision, No Double Vision, No Eye Pain, No Eye Tearing, No Ear Drainage, No Ear Pain, No Mouth Pain, No Mouth Swelling, No Nose Congestion, No Nose Pain, No Throat Pain, No Throat Swelling, No Other Respiratory: Denies No Symptoms Reported, Denies See HPI, Denies Cough, Denies Orthopnea, Denies Shortness of Air, Denies SOA With Exertion, Denies SOA at Rest, Denies Stridor, Denies Wheezing, Denies Other Cardiovascular: Denies No Symptoms Reported, Denies See HPI, Denies Chest Pain, Denies Edema, Denies Irregular Heart Rate, Denies Lightheadedness, Denies Palpitations, Denies Syncope, Denies Other Gastrointestinal: Abdominal Pain, Diarrhea, Nausea Genitourinary: Denies No Symptoms Reported, Denies See HPI, Denies Burning, Denies Discharge, Denies Drainage, Denies Frequency, Denies Flank Pain, Denies Hematuria, Denies Incontinence, Denies Pain, Denies Urgency, Denies Other Musculoskeletal: No no symptoms reported, No see HPI, No back pain, No gout, No joint pain, No joint swelling, No muscle pain, No muscle stiffness, No muscle cramps, No muscle twitching, No muscle weakness, No neck pain, No other Skin: No no symptoms reported, No see HPI, No change in color, No change in hair/nails, No dryness, No hx of skin cancer, No lesions, No lumps, No pruritus, No rash, No other All Other Systems Reviewed Negative Unless Noted: Yes Past [id number]-Rnkyfp Hx Patient Social History Alcohol Use: Denies Use Recreational Drug Use: No Type Used: Cigarettes 2nd Hand Smoke Exposure: Yes Recent Foreign Travel: No Contact w/Someone Who Travel: No Recent Infectious Disease Expo: No Recent Hopitalizations: No Physical Abuse: No Sexual Abuse: No Mistreated: No Fear: No Immunizations Up To Date Date of Pneumonia Vaccine: Oct 12, 2019 Date of Influenza Vaccine: Jun 25, 2019 Seasonal Allergies Seasonal Allergies: No Past Medical History Surgeries: Yes (knee arth bilat, right shoulder; back) Appendectomy, Gallbladder, Hysterectomy, Orthopedic Respiratory: No Cardiac: Yes (low potassium, low magnesium) Hypertension Neurological: No Sexually Transmitted Disease: No HIV/AIDS: No Genitourinary: No Gastrointestinal: Yes (EPIGASTRIC PAIN, N/V) Musculoskeletal: No Endocrine: No Diabetes, Non-Insulin dep HEENT: No (GLASSES) Loss of Vision: Bilateral Hearing Impairment: Denies Cancer: No Psychosocial: No Integumentary: No Blood Disorders: No Physical Exam Vital Signs Vital Signs - First Documented 04/14/20 10:30 Temp 35.8 Pulse 92 Resp 18 B/P (MAP) 114/57 (76) O2 Delivery Room Air Capillary Refill : Less Than 3 Seconds Height/Weight/BMI Height: 5'4.00" Weight: 178lbs. 0.0oz. 80.428271ve; 29.00 BMI Method:Stated General Appearance: WD/WN, no apparent distress Respiratory: chest non-tender, lungs clear, normal breath sounds, no respiratory distress, no accessory muscle use Cardiovascular: normal peripheral pulses, regular rate, rhythm, no edema, no gallop, no JVD, no murmur Gastrointestinal: normal bowel sounds, non tender, soft, no organomegaly, no pulsatile mass Skin: normal color, warm/dry Progress/Results/Core Measures Results/Orders Lab Results Laboratory Tests Test 04/14/20 10:25 04/14/20 10:43 Range/Units Urine Color YELLOW Urine Clarity CLEAR Urine pH 5.5 5-9 Urine Specific [place] 1.025 H 1.016-1.022 Urine Protein TRACE H NEGATIVE Urine Glucose (UA) NEGATIVE NEGATIVE Urine Ketones NEGATIVE NEGATIVE Urine Nitrite NEGATIVE NEGATIVE Urine Bilirubin 1+ H NEGATIVE Urine Urobilinogen 0.2 < = 1.0 MG/DL Urine Leukocyte Esterase 2+ H NEGATIVE Urine RBC (Auto) TRACE H NEGATIVE Urine RBC NONE /HPF Urine WBC 5-10 H /HPF Urine Squamous Epithelial Cells 0-2 /HPF Urine Crystals NONE /LPF Urine Bacteria FEW H /HPF Urine Casts NONE /LPF Urine Mucus NEGATIVE /LPF Urine Culture Indicated YES White Blood Count 10.6 4.3-11.0 10^3/uL Red Blood Count 5.38 4.35-5.85 10^6/uL Hemoglobin 14.0 11.5-16.0 G/DL Hematocrit 43 35-52 % Mean Corpuscular Volume 79 L 80-99 FL Mean Corpuscular Hemoglobin 26 25-34 PG Mean Corpuscular Hemoglobin Concent 33 32-36 G/DL Red Cell Distribution Width 15.1 H 10.0-14.5 % Platelet Count 278 130-400 10^3/uL Mean Platelet Volume 9.8 7.4-10.4 FL Neutrophils (%) (Auto) 74 42-75 % Lymphocytes (%) (Auto) 17 12-44 % Monocytes (%) (Auto) 7 0-12 % Eosinophils (%) (Auto) 1 0-10 % Basophils (%) (Auto) 0 0-10 % Neutrophils # (Auto) 7.9 H 1.8-7.8 X 10^3 Lymphocytes # (Auto) 1.9 1.0-4.0 X 10^3 Monocytes # (Auto) 0.7 0.0-1.0 X 10^3 Eosinophils # (Auto) 0.1 0.0-0.3 10^3/uL Basophils # (Auto) 0.0 0.0-0.1 10^3/uL Sodium Level 131 L 135-145 MMOL/L Potassium Level 3.5 L 3.6-5.0 MMOL/L Chloride Level 95 L 98-107 MMOL/L Carbon Dioxide Level 23 21-32 MMOL/L Anion Gap 13 5-14 MMOL/L Blood Urea Nitrogen 18 7-18 MG/DL Creatinine 1.03 0.60-1.30 MG/DL Estimat Glomerular Filtration Rate > 60 BUN/Creatinine Ratio 17 Glucose Level 114 H 70-105 MG/DL Calcium Level 9.9 8.5-10.1 MG/DL Corrected Calcium 10.0 8.5-10.1 MG/DL Total Bilirubin 0.3 0.1-1.0 MG/DL Aspartate Amino Transf (AST/SGOT) 49 H 5-34 U/L Alanine Aminotransferase (ALT/SGPT) 37 0-55 U/L Alkaline Phosphatase 201 H 40-136 U/L Total Protein 8.9 H 6.4-8.2 GM/DL Albumin 3.9 3.2-4.5 GM/DL Lipase 18 8-78 U/L My Orders Orders - LAWRENCE MATTHEWS MD Cbc With Automated Diff (04/14/20 10:45) Comprehensive Metabolic Panel (04/14/20 10:45) Urinalysis (04/14/20 10:45) Antacid Suspension (Mylanta Suspension (04/14/20 10:52) Lidocaine 2% Viscous 15 Ml (Xylocaine Vi (04/14/20 10:52) Abdomen Flat & Upright/Decub (04/14/20 10:52) Lipase (04/14/20 10:52) Drug Screen Stat (Urine) (04/14/20 10:52) Urine Culture (04/14/20 10:25) Vital Signs/I&O 04/14/20 10:30 Temp 35.8 Pulse 92 Resp 18 B/P (MAP) 114/57 (76) O2 Delivery Room Air Blood Pressure Mean: 76 Progress Progress Note : Time: 11:53 Progress Note Patient has a long history of chronic gastritis. Appears to be the same. Patient is much improved after GI cocktail. Patient also has urinary tract infection. Encourage by mouth fluids and advance diet slowly as tolerated. Take medications as prescribed and follow up with PCP in 2-3 days Departure Impression Primary Impression: Chronic gastritis Additional Impression: Urinary tract infection Disposition: 01 HOME, SELF-CARE Condition: Stable Departure-Patient Inst. Decision time for Depature: 11:54 Referrals: ALFREDO LEON MD (PCP/Family) Primary Care Physician Patient Instructions: Gastritis (DC), Urinary Tract Infection, Adult (DC) Add. Discharge Instructions: Encourage by mouth fluids and advance diet slowly as tolerated. Take medications as prescribed and follow up with PCP in 2-3 days All discharge instructions reviewed with patient and/or family. Voiced understanding. Scripts Sucralfate (Carafate) 1 Gm Tablet 1 GM PO 5XD, #30 TAB 0 Refills Prov: LAWRENCE MATTHEWS MD 04/14/20 Cephalexin (Cephalexin) 500 Mg Tablet 500 MG PO BID, #10 TAB 0 Refills Prov: LAWRENCE MATTHEWS MD 04/14/20 LAWRENCE MATTHEWS MD Apr 14, 2020 10:57
[2020-04-14 11:03] LABS: CLARITY,URINE CLEAR; COLOR,URINE YELLOW; GLUCOSE, URINE (UA) NEGATIVE (NEGATIVE); KETONES,URINE NEGATIVE (NEGATIVE); NITRITE,URINE NEGATIVE (NEGATIVE); PH,URINE 5.5 (5-9); PROTEIN,URINE TRACE (NEGATIVE)
[2020-04-14 11:04] LABS: BACTERIA,URINE FEW /HPF; BILIRUBIN,URINE 1+ (NEGATIVE); LEUKOCYTE ESTERASE ,URINE 2+ (NEGATIVE); SQUAMOUS EPITHELIAL CELL,UR 0-2 /HPF
[2020-04-14 11:19] LABS: BILIRUBIN,TOTAL 0.3 MG/DL (0.1-1.0); BUN/CREATININE RATIO 17; CALCIUM 9.9 MG/DL (8.5-10.1); CARBON DIOXIDE 23 MMOL/L (21-32); CHLORIDE 95 MMOL/L (98-107); CREATININE SERUM 1.03 MG/DL (0.60-1.30); GFR ESTIMATED > 60; GLUCOSE 114 MG/DL (70-105); POTASSIUM 3.5 MMOL/L (3.6-5.0); SODIUM 131 MMOL/L (135-145)
[2020-04-14 11:20] LABS: ALANINE AMINOTRANSFERASE 37 U/L (0-55); ALBUMIN 3.9 GM/DL (3.2-4.5); ALKALINE PHOSPHATASE 201 U/L (40-136); TOTAL PROTEIN 8.9 GM/DL (6.4-8.2)
--- NOTE | 2020-04-14 11:43 | Diagnostic Imaging Report ---
INDICATION: Abdominal pain and vomiting. FINDINGS: The bowel gas pattern is nonspecific. No significant air-filled dilated loops of bowel. No abnormal fecal loading. No differential air/fluid levels. No free air. IMPRESSION: No acute finding is radiographically apparent. Dictated by: Dictated on workstation # [id number]
[2020-04-14] MEDS ORDERED: CEPH500T PO (11:55)
[2020-04-14] MEDS ORDERED: SUCR1TAB36 PO (11:55)
[2020-04-14 11:58] VITALS: BP 118/72
--- OUTSIDE RECORDS SUMMARY | 2020-04-14 12:18 | XMS REPORT ---
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.49 January, Active 18985 6000 Problem Essential hypertension I10 Active 53221125 Problem Chronic hepatitis C without hepatic coma B18.2 Active 935644348 Problem Pure hypercholesterolemia E78.00 Acti ve 077809126 Problem Chronic obstructive pulmonary disease, unspecified COPD ty pe J44.9 Active 87710956 Problem Intractable migraine without aura and without st atus migrainosus G43.019 Active 002648402 Problem Tobacco abuse Z72.0 Active 557398 05 Problem History of hepatitis C Z86.19 January, Acti ve [id number] Problem Abdominal aortic aneurysm (AAA) without rupture I7 1.4 Active 81890227 Problem Abdominal aortic aneurysm (AAA) without rupture I7 1.4 Active 98216760 Problem Non-intractable cyclical vomiting with nausea G43. A0 Active 13536753 Problem Hypomagnesemia E83.42 Active 83616 5004 ALLERGIES Substance Reaction Event Type Date Status Morphine Sulfate itching Drug Allergy Nov, Active Codeine Phosphate itching Drug Allergy Nov, Active ENCOUNTERS Encounter Location Date Diagnosis [address] [id number] [place] [address] May, [address] [id number] [address] Feb, [address] [id number] [place] [address] Feb, [address] [id number] [place] [address] Feb, Rotator cuff tendinitis, rig ht M75.81 ; Lower back pain M54.5 ; Type 2 diabetes mellitus with neurologic complication, without long-term current use of insulin E11.49 ; Abdominal aortic aneurysm (AAA) without rupture I71.4 and Chronic obstructive pulmonary disease, unspecified COPD type J44.9 [facility] [address] [id number] [place] [address] 09 Feb, 2020 Pain in left ankle and joint s of left foot M25.572 and Pain in right ankle and joints of right foot M25.[address] 340 [id number] [address] Feb, Hypokalemia E87.6 and Type 2 diabetes mellitus with neurologic complication, without long-term current use of insulin E11.[address] 340 [id number], [place] [address] January, Sprain of lateral collateral ligament of left knee, subsequent encounter S83.422D and Intractable migraine without aura and without status migrainosus G43.019 [facility] [address] [facility] [id number] [address] [place] [address] January, [address] [id number], [place] [address] Dec, Hypokalemia E87.6 and Hypoma gnesemia E83.[address] [id number], [place] [address] Dec, [address] [id number], [place] [address] Dec, Type 2 diabetes mellitus wit h neurologic complication, without long-term current use of insulin E11.49 ; Hypomagnesemia E83.42 ; Essential hypertension I10 and Pure hypercholesterolemia E78.00 [facility] [address] [id number] [place] [address] 06 Dec, 2019 Essential hypertension I10 a nd Hypomagnesemia E83.42 [facility] [address] [id number] [place] [address] 30 Nov, 2019 [facility] [address] [facility] [id number] [address] [place] [address] 27 Nov, [address] [id number] [place] [address] Nov, [address] [id number], [place] [address] Nov, [facility] [address] [id number] [place] [address] Nov, Acute non-recurrent frontal sinusitis J01.[address] [id number] [place] [address] 18 Nov, [address] [id number], [place] [address] 05 Nov, 2019 [facility] [address] [facility] [id number] [address] [place] [address] 11 Oct, [address] [id number], [place] [address] 11 Oct, 2019 [facility] Z00.00 ; Chronic hepatitis C without hepatic coma B18.2 ; Abdominal aortic aneurysm (AAA) without rupture I71.4 ; Essential hypertension I10 ; Pure hypercholesterolemia E78.00 ; Type 2 diabetes mellitus with neurologic complication, without long- term current use of insulin E11.49 ; Intractable migraine without aura and without status migrainosus G43.019 ; Encounter for immunization Z23 and Chronic obstructive pulmonary disease, unspecified COPD type J44.9 [facility] [address] [facility] [id number] [address] [place] [address] 08 Oct, [address] [id number] [place] [address] Oct, Type 2 diabetes mellitus wit h neurologic complication, without long-term current use of insulin E11.49 and Essential hypertension I10 [facility] [address] [facility] [id number] 100[address] [place] [address] Sep, [facility] [address] [id number] [place] [address] Sep, Lower back pain M54.5 and UT I symptoms R39.9 [facility] [address] [id number], [place] [address] Sep, Essential hypertension I10 ; Nicotine dependence, cigarettes, uncomplicated F17.210 ; Type 2 diabetes mellitus with neurologic complication, without long-term current use of insulin E11.49 ; Pure hyperc holesterolemia E78.00 and Hypomagnesemia E83.42 [facility] [address] [id number], [place] [address] Aug, [facility] [address] [id number], [place] [address] Aug, [facility] [address] [id number] [place] [address] Aug, [facility] [address] [id number] [place] [address] Aug, Epigastric pain R10.13 and L ower back pain M54.5 [facility] [address] [id number], [place] [address] Jul, Essential hypertension I10 [facility] [address] [id number], [place] [address] Jul, [facility] [address] [id number], [place] [address] Jun, [facility] [address] [id number], [place] [address] May, [address] [id number] [place] [address] May, [address] [id number], [place] [address] May, Abdominal aortic aneurysm (A AA) without rupture I71.4 ; Generalized abdominal pain R10.84 ; Nicotine dependence, cigarettes, uncomplicated F17.210 ; Type 2 diabetes mellitus with neurologic complication, without long-term current use of insulin E11.49 and Encounter for immunization Z23 [address] [id number], [place] [address] May, Acute superficial gastritis without hemorrhage K29.00 [facility] [address] [id number], [place] [address] May, Acute cystitis without hemat uria N30.00 and UTI symptoms R39.[address] 340 [id number], [place] [address] May, Non-intractable cyclical vom iting with nausea G43.A0 and Acute superficial gastritis without hemorrhage K29.[address] 340 [id number], [place] [address] May, HLD (hyperlipidemia) E78.[address] [id number], [place] [address] Apr, Acute superficial gastritis without hemorrhage K29.00 and Non-intractable cyclical vomiting with nausea G43.A0 [address] [id number], [place] [address] Apr, Epigastric pain R10.13 and D ehydration E86.0 [facility] [address] [id number], [place] [address] Apr, Acute superficial gastritis without hemorrhage K29.00 and Non-intractable cyclical vomiting with nausea G43.A0 [address] 340[address] [id number], [place] [address] Apr, HLD (hyperlipidemia) E78.5 a nd Type 2 diabetes mellitus with neurologic complication, without long-term current use of insulin E11.49 [facility] [address] [id number] [place] [address] Mar, [facility] [address] [id number] [place] [address] January, [facility] [address] [id number] [place] [address] January, Screening mammogram, encount er for Z12.31 [facility] [address] [id number] [place] [address] January, HLD (hyperlipidemia) E78.5 ; History of hepatitis C Z86.19 ; Type 2 diabetes mellitus with neurologic complication, without long- term current use of insulin E11.49 and Essential hypertension I10 [facility] [address] [id number] [place] [address] Dec, [facility] [address] [id number] [place] [address] Dec, [facility] [address] [id number], [place] [address] Dec, [facility] [address] 340[address] [id number], [place] [address] Dec, [facility] [address] [id number], [place] [address] Dec, Epigastric pain R10.13 ; Parker ious vomiting with nausea R11.14 and Hypokalemia E87.6 [facility] [address] [id number] [place] [address] Dec, [facility] [address] [id number] [place] [address] Nov, Acute cystitis without hemat uria N30.00 [facility] [address] [id number] [place] [address] Nov, [facility] [address] [id number] [place] [address] 24 Nov, 2018 Nausea & vomiting R11.2 [facility] [address] [id number] [place] [address] Nov, [facility] [address] [facility] [id number] [address] [place] [address] 18 Oct, 2018 Essential hypertension I10 [facility] [address] 340[address] [id number], [place] [address] 15 Oct, 2018 Essential hypertension I10 a nd Type 2 diabetes mellitus without complication, without long-term current use of insulin E11.9 [facility] [address] 340[address] [id number], [place] [address] 14 Oct, 2018 Impingement syndrome of righ t shoulder M75.41 ; Essential hypertension I10 ; Pure hypercholesterolemia E78.00 ; Type 2 diabetes mellitus without complication, without long-term current use of insulin E11.9 and Chronic hepatitis C without hepatic coma B18.2 [facility] [address] [facility] [id number] [address] [place] [address] Oct, [facility] [address] [id number] [place] [address] 04 Oct, 2018 Intractable migraine without aura and without status migrainosus G43.019 [facility] [address] [facility] [id number] [address] [place] [address] Sep, [facility] [address] [facility] [id number] [address] [place] [address] Aug, [facility] [address] [facility] [id number] [address] [place] [address] Aug, [facility] [address] [facility] [id number] [address] [place] [address] Aug, [facility] [address] [facility] [id number] [address] [place] [address] Jul, IMMUNIZATIONS No Known Immunizations SOCIAL HISTORY Never Assessed REASON FOR VISIT Hospital f/u PLAN OF CARE Activity Details Follow Up prn Reason: VITAL SIGNS Height 5ft 4in in 2018-12-13 Weight 199 lbs 2018-12-13 Heart Rate 88 bpm 2018-12-13 Respiratory Rate 20 2018-12-13 BMI 34.15 kg/m2 2018-12-13 Blood pressure systolic 120 mmHg 2018-12-13 Blood pressure diastolic 76 mmHg 2018-12-13 MEDICATIONS Medication Instructions Dosage Frequency Start Date End Date Duration S tatus Magnesium Oxide 400 MG Orally Once a day 1 tablet as needed 24h 30 day(s) Not-Taking Lisinopril 20 MG Orally Once a day 1 tablet 24h 14 Oct, 2018 30 days Active Chlorthalidone 25 MG Orally Once a day 1 tablet in the morning with f ood 24h 30 day(s) Active Ondansetron HCl 4 MG Orally every 4 hours as needed 1 tablets Nov, 5 days Active Effexor XR 150 MG Orally Once a day 1 capsule with food 24h 30 day(s) Active Plavix 75 MG Orally Once a day 1 tablet 24h 30 day(s ) Not-Taking Albuterol Sulfate HFA 108 (90 Base) MCG/ACT Inhalation every 6 hrs 2 puffs as needed 6h Active Klor-Con M20 20 MEQ Orally Once a day 1 tablet with food 24h 30 day(s) Active Fenofibrate 160 MG Orally Once a day 1 tablet with food 24h 30 day(s) Active Keflex 500 MG Orally every 12 hrs 1 capsule 12h 25 Nov, 2018 10 day(s) Active Fluticasone Propionate 50 MCG/ACT Nasally Once a day 1 spray in each nostril 24h Nov, 30 day(s) Active RESULTS No Results PROCEDURES Procedure Date Ordered Result Body Site TRANS CARE MGMT 14 DAY DISCH December 13, 2018 [facility] VISIT ESTABLISHED PATIENT December 13, 2018 INSTRUCTIONS MEDICATIONS ADMINISTERED No Known Medications MEDICAL (GENERAL) HISTORY Type Description Date Medical History Hypokalemia Medical History Hypomagnesemia Medical History Hypertension Medical History Hepatitis C Medical History Type 2 diabetes mellitus Surgical History Hysterectomy Surgical History Left Arm Surgery Surgical History Lap Dawn Surgical History Lap Appy Surgical History Bilat Knee Surgery Hospitalization History surgeries
--- OUTSIDE RECORDS SUMMARY | 2020-04-14 12:19 | XMS REPORT | Continuity of Care Document ---
Author Organization Unknown Address Unknown Phone Unavailable Allergies Active Description Code Type Severity Reaction Onset Reported/Identified Relationship to Patient Clinical Status Yes SULFA SULFA Moderate itching, nausea 12/10/2018 Yes codeine [id number] Drug Allergy Moderate itching, nausea 01/17/2019 Yes morphine [id number] Drug Allergy Moderate itching, nausea 01/17/2019 Yes Sulfa (Sulfonamide Antibiotics) B14534 0491 Drug Allergy Unknown N/A 019 Medications [...] DO Ot R11.10 VOMITING, UNSPECIFIED 01/13/2019 JASSI ARCINIEGA DO Ot Z88.2 ALLERGY STATUS [...] GOVEA, NAA B Ot Z79.8 99 OTHER DEEP FAT COOK FRY (CURRENT) DRUG THERAPY 01/21/2019 TACOS GOVEA, NAA [...] GOVEA, NAA B Ot Z79.8 99 OTHER JAIL (CURRENT) DRUG THERAPY 01/24/2019 TACOS GOVEA, NAA [...] BALDERRAMA DOIC B Ot Z79.8 99 OTHER DEEP FAT COOK FRY (CURRENT) DRUG THERAPY 01/24/2019 TACOS GOVEA NAA [...] BALDERRAMA DOIC B Ot Z79.8 99 OTHER JAIL (CURRENT) DRUG THERAPY 01/27/2019 WALDO BALDERRAMA DOIC [...] ABSENCE OF OTHER SPECIFIED PART 12/19/2019 LAKSHMI ZEE MD Ot Z90.710 ACQUIRED ABSENCE OF BOTH CERVIX AND UTER 12/19/2019 LAKSHMI ZEE MD Ot Z98.890 OTHER SPECIFIED POSTPROCEDURAL STATES 12/23/2019 MARIE DO, VIKASH Ot E11.9 TYPE 2 DIABETES MELLITUS WITHOUT COMPLIC 12/23/2019 MARIE DO, VIKASH Ot E83.42 HYPOMAGNESEMIA 12/23/2019 MARIE DO, VIKASH Ot E87.6 HYPOKALEMIA 12/23/2019 MARIE DO, VIKASH Ot F32.9 MAJOR DEPRESSIVE DISORDER, SINGLE EPISOD 12/23/2019 MAIRE DO, VIKASH Ot F41.9 ANXIETY DISORDER, UNSPECIFIED 12/23/2019 MARIE DO, VIKASH Ot I10 ESSENTIAL (PRIMARY) HYPERTENSION 12/23/2019 MARIE DO, VIKASH Ot J32.9 CHRONIC SINUSITIS, UNSPECIFIED 12/23/2019 MARIE DO, VIKASH Ot Z77.22 CNTCT W AND EXPSR TO ENVIRON TOBACCO SMO 12/23/2019 MARIE DO, VIKASH Ot [...] W AND EXPSR TO ENVIRON TOBACCO SMO 12/23/2019 MARIE DO, VIKASH Ot Z91.14 PATIENT'S OTHER NONCOMPLIANCE WITH MEDIC 01/28/2020 ROVENSTINE , SHAYY Shaw Ot F17.210 NICOTINE DEPENDENCE, CIGARETTES, UNCOMPL 01/28/2020 ROVENSTINE SHAYY GOVEA Ot I10 ESSENTIAL (PRIMARY) HYPERTENSION 01/28/2020 ROVENSTINE SHAYY GOVEA Ot M25.562 PAIN IN LEFT KNEE 01/28/2020 ROVENSTINE SHAYY GOVEA Ot S83.422A SPRAIN OF LATERAL COLLATERAL LIGAMENT OF 01/28/2020 ROVENSTINE DOSHAYY Ot W10.9XXA FALL (ON) (FROM) UNSPECIFIED STAIRS AND 01/28/2020 ROSYLVESTERSTDYAN GOVEA SHAYY Shaw Ot Z88.2 ALLERGY STATUS TO SULFONAMIDES STATUS 01/28/2020 HUMZADYAN SHAYY Shaw Ot Z88.5 ALLERGY STATUS TO NARCOTIC AGENT STATUS Procedures Code [place] [address] Poly somnography; age 6 years or older, sleep staging with 4 or more additional parameters of sleep, SVITLANA CORTES MD 06/20/2016 74937 Poly somnography; age 6 years or older, sleep staging with 4 or more additional parameters of sleep, SVITLANA CORTES MD 07/11/2016 22863 Poly somnography; age 6 years or older, sleep staging with 4 or more additional parameters of sleep, SVITLANA CORTES MD 07/26/2016 G0202 DIGI ARYAN SCREENING MAMMOGRAM CAREY, AGAPITO 01/23/2017 Results Test Result Range Complete urinalysis [...] 7-25 CREATININE 0.87 mg/dL 0.50-0.99 eGFR NON-AFR. ETHIOPIAN 70 mL/min/1.73m2 > OR = 60 eGFR [...] 7-25 CREATININE 0.82 mg/dL 0.50-0.99 eGFR NON-AFR. ETHIOPIAN 76 mL/min/1.73m2 > OR = 60 eGFR [...] culture - 06/02/19 23:10 Bacterial urine culture [id number] NRG COLONY COUNT >100,000/ML NRG FTX;REPORTABLE SEE [...] IGEN, NEG FOR A ANTIGEN, BY IA NR CULTURE, URINE - 10/09/19 00:00 CULTURE, URINE, [...] CALCIUM CORRECTED 9.2 mg/dL 8.5-10.1 Magnesium - 12/12/19 05:39 Magnesium 1.6 mg/dL 1.6-2.4 MAGNESIUM SERUM [...] 1.1 % NRG BASOPHILS 0.4 % NRG MICROALBUMIN/CREATININE RATIO, URINE - 0 02/17/20 07:55 CREATININE, RANDOM URINE 132 mg/dL 20-27 5 MICROALBUMIN 25.9 mg/dL See Note: MICROALBUMIN/CREATININE RATIO, RANDOM URINE 196 mcg/mg creat <30 Encounters ACCT No. Visit Date/Time Discharge Status Pt. Type Provider Facility Loc./Unit Complaint [id number] 04/09/2020 10:00:00 04/09/2020 23:59: 59 [facility] [id number] 02/17/2020 07:45:00 Document Registration [id number] 12/23/2019 11:00:00 Document Registration [id number] 10/25/2019 14:15:00 Document Registration [id number] 10/09/2019 16:00:00 Document Registration [id number] 08/24/2019 09:40:00 Document Registration [id number] 05/23/2019 15:10:00 Document Registration [id number] 05/09/2019 14:15:00 Document Registration [id number] 04/29/2019 08:45:00 Document Registration [id number] 01/10/2019 10:45:00 Document Registration [id number] 01/28/2020 12:53:00 13:28:00 DIS Emergency KASSANDRAVENSTSHAYY ZAIDI DO Via [facility] ER FS LT LEG INJ [id number] 12/11/2019 10:33:00 11:55:00 DIS Inpatient VIKASH MARIE DO, V [facility] 4TH SEVERE HYPOKALEMIN,HYOM AGNESEMIA [id number] 10/28/2019 09:31:00 10:30:00 DIS Emergency ELMER VALERIO DO [facility] ER FS ABD LAB RESULTS [id number] 10/09/2019 17:29:00 18:10:00 DIS Emergency LAKSHMI ZEE MD [facility] ER FS BACK PAIN [id number] 09/08/2019 09:56:00 11:15:00 DIS Emergency ELMER VALERIO DO [facility] ER FS CHEST PAIN [id number] 06/02/2019 21:41:00 23:41:00 DIS Emergency RAHUL WEATHERS DO [facility] ER FS RIGHT FLANK PAIN [id number] 05/26/2019 14:53:00 17:39:00 DIS Emergency MARIANA CANTU, CAMERON Moss [facility] ER FS VOMITING [id number] 01/21/2019 09:21:00 11:30:00 DIS Outpatient NAA BALDERRAMA DO [facility] ENDO VOMITING/EPIGASTRIC BUFFY N [id number] 01/17/2019 05:39:00 11:03:00 DIS Outpatient NAA BALDERRAMA DO [facility] PREOP EGD [id number] 01/13/2019 13:37:00 16:59:00 DIS Emergency JASSI ARCINIEGA DO [facility] ER FS VOMITING,STOMACH PAIN [id number] 01/01/2019 10:46:00 14:22:00 DIS Emergency PAUL NATHAN DO [facility] ER FS VOMITING [id number] 12/10/2018 10:57:00 15:09:00 DIS Emergency LES CANTU, SONNY Lai [facility] ER FS NAUSEA VOMITI NG [id number] 01/26/2017 00:00:00 DIS Document Registration [id number] 06/20/2016 18:08:00 06/20/2016 23:59 :59 [facility] Outpatient
== END 2020-04-14 12:02 | disposition home or self-care (01) ==
LOC: EDUNIT# 10:22 → ER FS 10:24
DX: K29.50 Unspecified chronic gastritis without bleeding (principal); N39.0 Urinary tract infection, site not specified; I10 Essential (primary) hypertension; E11.9 Type 2 diabetes mellitus without complications; Z88.5 Allergy status to narcotic agent; Z88.2 Allergy status to sulfonamides; Z77.22 Contact with and (suspected) exposure to environmental tobacco smoke (acute) (chronic)
CPT/HCPCS: 36415; 74019; 80053; 81000; 83690; 85025; 87088

== ENCOUNTER → 2020-10-06 | Outpatient (CLI) | payer MEDICARE, MEDICAID ==
[~2020-10-06] MED LIST changes: -MONT10TA26 PO; +MONT10TA97 PO
--- NOTE | 2020-10-06 11:36 | Diagnostic Imaging Report ---
INDICATION: Shortness of breath PA and lateral chest There is a large left pleural effusion. Right lung is clear. Heart size is normal. IMPRESSION: Large left pleural effusion with some associated left basilar infiltrate or atelectasis. This is new compared to prior exam dated 04/14/2020. Dictated by: Dictated on workstation # [id number]
== END ==
LOC: RAD FS 11:04
PROVIDERS: ATTEND Nurse Practitioner Family
DX: J90 Pleural effusion, not elsewhere classified (principal)
CPT/HCPCS: 71046

== ENCOUNTER → 2020-10-06 | Outpatient (CLI) | payer MEDICARE, MEDICAID ==
[~2020-10-06] MED LIST changes: +HOLD METFORMIN - RECEIVED CONTRAST 20 ML VIAL IV SCH; +IOHEXOL 350 MG/ML 100 ML (OMNIPAQUE 350) VIAL IV ONE; +NS 100 ML (IVPB) BAG IV ONE
[2020-10-06 16:16] LABS: CREATININE SERUM 0.92 MG/DL (0.60-1.30); GFR ESTIMATED > 60
[2020-10-06 16:17] LABS: BUN/CREATININE RATIO 9
--- NOTE | 2020-10-06 17:12 | Diagnostic Imaging Report ---
PROCEDURE: CT chest with contrast only. TECHNIQUE: Multiple contiguous axial images were obtained through the chest after administration of intravenous contrast. Auto Exposure Controls were utilized during the CT exam to meet ALARA standards for radiation dose reduction. DATE: October 06, 2020. COMPARISON: Chest radiographs October 06, 2020. INDICATION: 65-year-old female, chest pain and shortness of breath. FINDINGS: There are upper lobe predominant findings of emphysema. There is a large left pleural effusion. There is homogeneously enhancing consolidation in the left lower lobe with prominent volume loss consistent with atelectasis. There is nonspecific fairly linear opacification in the left upper lobe. There is no identified pleural-based mass. There is very thin pleural enhancement on the left. There is mass effect relating to the pleural effusion with mild [id number] mediastinal shift. There is no identified pneumothorax. The more central airways are patent. There is no right pleural effusion. There is no identified central pulmonary embolus. The main pulmonary artery is normal in caliber. The heart is not enlarged. There are coronary artery calcifications and additional areas of atherosclerotic disease. There is no pericardial effusion. There are abnormally enlarged periaortic lymph nodes on axial image 110 with one example on the left measuring 11 mm in short axis. There are additional abnormally enlarged periaortic and retrocrural lymph nodes also present. There is no identified mediastinal, hilar, or axillary lymph node specifically meeting CT size criteria for adenopathy. There is a 6 mm left supraclavicular lymph node as well as additional similarly sized left supraclavicular lymph nodes on axial image 12 and adjacent sequential images. These do meet size criteria for adenopathy. The liver contours are very mildly nodular. There is no clearly identified focal liver lesion. The patient is status post cholecystectomy. There is a very heterogeneous appearance of the spleen. There is a focal low-attenuation lesion in the spleen on axial image 124 measuring 1.9 cm in size and also more inferiorly located on axial image 156 measuring 1.7 cm in size. The infrarenal abdominal aorta is aneurysmal and measures up to at least 3.7 x 3.3 cm in diameter. There are abnormally enlarged mesenteric and nate hepatis lymph nodes. There is no identified acute bony abnormality. IMPRESSION: CT CHEST. 1. Large left pleural effusion with enhancing pleural margins. This is concerning for potential malignant or infectious related effusion. 2. Abnormally enlarged left supraclavicular, periaortic, retrocrural, mesenteric, and nate hepatis lymph nodes which raise concern for lymphoma or metastatic gia disease. 3. Heterogeneous attenuation of the spleen with focal low-attenuation splenic lesions concerning for lymphoma or metastatic disease, especially given the above findings. 4. Prominent atherosclerotic disease with infrarenal abdominal aortic aneurysm measuring at least 3.7 x 3.3 cm in diameter. Dictated by: Dictated on workstation # [id number]
== END ==
LOC: RAD 15:43
PROVIDERS: ATTEND Surgery
DX: J90 Pleural effusion, not elsewhere classified (principal); I71.4 Abdominal aortic aneurysm, without rupture; R59.0 Localized enlarged lymph nodes
CPT/HCPCS: 36415; 71260; 82565; 84520

== ENCOUNTER 2020-10-07 09:18 | Outpatient (CLI) | payer MEDICARE, MEDICAID ==
[~2020-10-07] VITALS: Ht 162.6 cm; Wt 75.0 kg
[~2020-10-07 09:18] MED LIST changes: -HOLD METFORMIN - RECEIVED CONTRAST 20 ML VIAL IV SCH; -IOHEXOL 350 MG/ML 100 ML (OMNIPAQUE 350) VIAL IV ONE; -NS 100 ML (IVPB) BAG IV ONE
[2020-10-07 09:33] VITALS: BP 152/79
--- NOTE | 2020-10-07 10:19 | Progress Note-Post Operative ---
Post-Operative Progess Note Surgeon (s)/Guide Domestic Tour (s) Surgeon NAA BALDERRAMA DO Guide Domestic Tour: none Pre-Operative Diagnosis tachypnea, pleural effusion, pleuritic chest pain Post-Operative Diagnosis same pending path Procedure & Operative Findings Date of Procedure 10/07/20 Procedure Performed/Findings Thoracentesis INDICATIONS: The patient is a 65-year-old female with symptomatic pleural effusion. She understands risks and benefits of procedure and wished to proceed with procedure. Consent was signed in the chart. DESCRIPTION OF PROCEDURE: The patient was in her room in same day surgery. Ultrasound was used to identify largest pocket for placement of Yrts-U-Hggeickv needle and catheter. The area was then prepped and draped and timeout was performed. Local anesthetic was infiltrated and 11 blade scalpel was used to make a small skin incision. Ynma-[id number]-[id number] needle and catheter were then advanced until a straw-colored fluid was withdrawn. The catheter was advanced and the needle was removed. A total of 1600 mL of dark straw-colored fluid was withdrawn. Once done draining, the catheter was removed and sterile bandage was applied. The patient tolerated procedure well without any complications. Anesthesia Type Local lidocaine Estimated Blood Loss Estimated blood loss (mL): scant Specimens/Packing Specimens Removed 1600ml NAA BALDERRAMA DO Oct 07, 2020 10:19
--- NOTE | 2020-10-07 10:40 | NUR ---
RADIOLOGY IN THE ROOM OBTAINING CXR ORDERED.
--- NOTE | 2020-10-07 10:41 | Diagnostic Imaging Report ---
INDICATION: Pleural effusion. Sonographic guidance was provided for Dr. Anders for performance of a left-sided thoracentesis. Images demonstrate a large left pleural effusion. IMPRESSION: Sonographic guidance for Dr. Anders for performance of left-sided thoracentesis. Dictated by: Dictated on workstation # [id number]
--- NOTE | 2020-10-07 10:59 | Diagnostic Imaging Report ---
INDICATION: Postthoracentesis. TIME OF EXAM: 10:39 AM Correlation is made to prior study one day earlier. FINDINGS: There has been reduction in left-sided pleural effusion, status post thoracentesis. Pleural fluid is now small. No pneumothorax is identified. Right lung is clear. Heart size is stable. IMPRESSION: Significant reduction in left pleural effusion, status post thoracentesis. No pneumothorax is identified. Dictated by: Dictated on workstation # [id number]
[2020-10-07 11:01] LABS: AMYLASE,BODY FLUID 47 U/L
[2020-10-07 11:03] LABS: TOTAL PROTEIN,BODY FLUID 4.1 G/DL
[2020-10-07 11:10] VITALS: BP 113/48
[2020-10-07 11:18] LABS: LDH,BODY FLUID 913 U/L
[2020-10-07 11:29] LABS: GLUCOSE,BODY FLUID 63 MG/DL
[2020-10-07 11:42] LABS: BODY FLUID APPEARENCE SLT CLDY; BODY FLUID COLOR YELLOW; BODY FLUID RBC COUNT 3950 /uL; BODY FLUID SOURCE PLEURAL; BODY FLUID WBC TOTAL COUNT 1995 /uL; LYMPHOCYTES,BODY FLUID 78 %
== END 2020-10-07 11:10 | disposition home or self-care (01) ==
LOC: SDC 09:18
PROVIDERS: ATTEND Surgery
DX: J90 Pleural effusion, not elsewhere classified (principal); Z98.890 Other specified postprocedural states
CPT/HCPCS: 32554; 71045; 76942; 82150; 82570; 82945; 83615; 84157; 87070; 87075; 87116; 87205; 87206; 89051

== ENCOUNTER → 2020-10-20 | Outpatient (CLI) | payer MEDICARE, MEDICAID ==
[~2020-10-20] MED LIST changes: +FURO-125 PO
--- NOTE | 2020-10-20 10:14 | Diagnostic Imaging Report ---
INDICATION: PLEURAL EFFUSION. TECHNIQUE: Two view chest 9:28 AM CORRELATION STUDY: 10/07/2020 FINDINGS: Heart size and mediastinum are generally stable. Opacity of the left lung base likely combination of effusion with consolidation with atelectasis and/or infiltrate does persist overall perhaps slightly more prominent. Right lung generally stable. Prior surgical change of the left rotator cuff. IMPRESSION: 1. Slight increasing combination of effusion at the lung without consolidation left lung base. Dictated by: Dictated on workstation # [id number]
== END ==
LOC: RAD FS 09:25
PROVIDERS: ATTEND Family Medicine
DX: J90 Pleural effusion, not elsewhere classified (principal)
CPT/HCPCS: 71046

== ENCOUNTER 2020-10-21 13:02 | Emergency (ER) | payer MEDICARE, MEDICAID ==
[~2020-10-21] VITALS: Ht 165 cm; Wt 69.8 kg
[~2020-10-21 13:02] MED LIST changes: -FURO-125 PO
--- NOTE | 2020-10-21 13:43 | ED Respiratory ---
General Chief Complaint: Respiratory Problems Stated Complaint: SOA Nursing Triage Note: Pt sent here from Dr. Balderrama's office for c/o SOA. Pt has hx recurrent pleural effusions. Source: patient Exam Limitations: no limitations History of Present Illness Date Seen by Provider: Oct 21, 2020 Time Seen by Provider: 13:41 Initial Comments To ER with reports of shortness of breath. She presented to Dr. Balderrama's but she is more short of breath so they referred her here. She denies fevers or chills. States that for the past 48 hours she has had increasing dyspnea on exertion. She has had a pleural effusion on the left which has been drained once, diagnosis pending. Timing/Duration: just prior to arrival, getting worse Severity: moderate Prior Episodes/Possible Cause: no prior episodes Associated Symptoms: shortness of breath Allergies and Home Medications Allergies Coded Allergies: codeine (Verified Allergy, Intermediate, itching, nausea and vomiting., 01/17/19) morphine (Verified Allergy, Intermediate, itching, nausea and vomiting, 01/17/19) Sulfa (Sulfonamide Antibiotics) (Verified Allergy, Unknown, 01/17/19) Home Medications Acetaminophen 325 Mg Tablet, 650 MG PO Q8H PRN for PAIN-MILD (1-4), (Reported) Amoxicillin/Potassium Clav 1 Each Tablet, 1 EA PO Q12H, (Reported) FILLED 12-06-2019 #14/7 DAY SUPPLY Atorvastatin Calcium 10 Mg Tablet, 10 MG PO DAILY, (Reported) Cephalexin 500 Mg Tablet, 500 MG PO BID Prescribed by: LAWRENCE MATTHEWS on 04/14/20 1155 Dicyclomine HCl 20 Mg Tablet, 20 MG PO DAILY, (Reported) Furosemide 20 Mg Tablet, 20 MG PO DAILY Prescribed by: MIRIAM CARL on 10/21/20 1541 Lisinopril 20 Mg Tablet, 20 MG PO DAILY, (Reported) Magnesium Oxide 400 Mg Tablet, 400 MG PO BID Prescribed by: VIKASH MARIE on 12/12/19 1049 Metoclopramide HCl 5 Mg Tablet, 5 MG PO DAILY, (Reported) Omeprazole 20 Mg Tablet.dr, 20 MG PO DAILY, (Reported) Potassium Chloride 20 Meq Tab.er.prt, 20 MEQ PO BID Prescribed by: VIKASH MARIE on 12/12/19 1049 Potassium Chloride 20 Meq Tablet.er, 40 MEQ PO DAILY Prescribed by: MIRIAM CARL on 10/21/20 1541 Spironolactone 25 Mg Tablet, 25 MG PO DAILY Prescribed by: VIKASH MARIE on 12/12/19 1049 Sucralfate 1 Gm Tablet, 1 GM PO 5XD Prescribed by: LAWRENCE MATTHEWS on 04/14/20 1155 Venlafaxine HCl 150 Mg Cap.er.24h, 150 MG PO DAILY, (Reported) Patient Home Medication List Home Medication List Reviewed: Yes Review of Systems Review of Systems Constitutional: see HPI EENTM: see HPI Respiratory: see HPI; No cough; dyspnea on exertion Cardiovascular: no symptoms reported Genitourinary: no symptoms reported Musculoskeletal: no symptoms reported Skin: no symptoms reported Psychiatric/Neurological: No Symptoms Reported Hematologic/Lymphatic: No Symptoms Reported Past Ddvnjad-Ifxlkh-Lccwic Hx Patient Social History Alcohol Use: Denies Use Smoking Status: Current Everyday Smoker Type Used: Cigarettes 2nd Hand Smoke Exposure: Yes Recent Infectious Disease Expo: No Recent Hopitalizations: No Immunizations Up To Date Date of Pneumonia Vaccine: Oct 12, 2019 Date of Influenza Vaccine: Jun 25, 2019 Seasonal Allergies Seasonal Allergies: No Past Medical History Surgeries: Yes (knee arth bilat, right shoulder; back) Appendectomy, Gallbladder, Hysterectomy, Orthopedic Respiratory: No Cardiac: Yes (low potassium, low magnesium) Hypertension Neurological: No Sexually Transmitted Disease: No HIV/AIDS: No Genitourinary: No Gastrointestinal: Yes (EPIGASTRIC PAIN, N/V) Musculoskeletal: No Endocrine: No Diabetes, Non-Insulin dep HEENT: No (GLASSES) Loss of Vision: Bilateral Hearing Impairment: Denies Cancer: No Psychosocial: No Integumentary: No Blood Disorders: No Physical Exam Vital Signs - First Documented 10/21/20 13:22 Temp 37.5 Pulse 102 Resp 28 B/P (MAP) 168/100 (122) Pulse Ox 96 O2 Delivery Room Air Capillary Refill : Less Than 3 Seconds Height: 5'4.00" Weight: 178lbs. 0.0oz. 80.687375mt; 25.00 BMI Method:Stated General Appearance: WD/WN, no apparent distress, other (No respiratory distress or accessory muscle use) Eyes: Bilateral Eye Normal Inspection, Bilateral Eye PERRL, Bilateral Eye EOMI Neck: non-tender, full range of motion Respiratory: lungs clear, normal breath sounds, no respiratory distress, no accessory muscle use Cardiovascular: regular rate, rhythm, no murmur Gastrointestinal: normal bowel sounds, non tender, soft Neurologic/Psychiatric: alert, normal mood/affect, oriented x 3 Skin: normal color, warm/dry Progress/Results/Core Measures Suspected Sepsis Recent Fever Within 48 Hours: No Infection Criteria Present: None New/Unexplained Altered Menta: No Sepsis Screen: No Definite Risk SIRS Temperature: Pulse: 102 Respiratory Rate: 28 Laboratory Tests 10/21/20 13:44: White Blood Count 7.7 Blood Pressure 168 /100 Mean: 122 Laboratory Tests 10/21/20 13:44: Creatinine 0.75, Platelet Count 318, Total Bilirubin 0.4 Results/Orders Lab Results Laboratory Tests Test 10/21/20 13:44 Range/Units White Blood Count 7.7 4.3-11.0 10^3/uL Red Blood Count 5.05 3.80-5.11 10^6/uL Hemoglobin 12.1 11.5-16.0 g/dL Hematocrit 39 35-52 % Mean Corpuscular Volume 76 L 80-99 fL Mean Corpuscular Hemoglobin 24 L 25-34 pg Mean Corpuscular Hemoglobin Concent 31 L 32-36 g/dL Red Cell Distribution Width 17.0 H 10.0-14.5 % Platelet Count 318 130-400 10^3/uL Mean Platelet Volume 10.0 9.0-12.2 fL Immature Granulocyte % (Auto) 1 % Neutrophils (%) (Auto) 74 42-75 % Lymphocytes (%) (Auto) 17 12-44 % Monocytes (%) (Auto) 7 0-12 % Eosinophils (%) (Auto) 0 0-10 % Basophils (%) (Auto) 0 0-10 % Neutrophils # (Auto) 5.7 1.8-7.8 10^3/uL Lymphocytes # (Auto) 1.3 1.0-4.0 10^3/uL Monocytes # (Auto) 0.6 0.0-1.0 10^3/uL Eosinophils # (Auto) 0.0 0.0-0.3 10^3/uL Basophils # (Auto) 0.0 0.0-0.1 10^3/uL Immature Granulocyte # (Auto) 0.1 0.0-0.1 10^3/uL D-Dimer 7.17 H 0.00-0.49 UG/ML Sodium Level 137 135-145 MMOL/L Potassium Level 3.0 L 3.6-5.0 MMOL/L Chloride Level 102 98-107 MMOL/L Carbon Dioxide Level 24 21-32 MMOL/L Anion Gap 11 5-14 MMOL/L Blood Urea Nitrogen 6 L 7-18 MG/DL Creatinine 0.75 0.60-1.30 MG/DL Estimat Glomerular Filtration Rate > 60 BUN/Creatinine Ratio 8 Glucose Level 91 70-105 MG/DL Calcium Level 8.5 8.5-10.1 MG/DL Corrected Calcium 9.4 8.5-10.1 MG/DL Total Bilirubin 0.4 0.1-1.0 MG/DL Aspartate Amino Transf (AST/SGOT) 19 5-34 U/L Alanine Aminotransferase (ALT/SGPT) 8 0-55 U/L Alkaline Phosphatase 121 40-136 U/L Troponin I < 0.028 <0.028 NG/ML B-Type Natriuretic Peptide 1112.3 H <100.0 PG/ML Total Protein 7.8 6.4-8.2 GM/DL Albumin 2.9 L 3.2-4.5 GM/DL My Orders Orders - MIRIAM CARL APRN Chest 1 View, Ap/Pa Only (10/21/20 13:07) Cbc With Automated Diff (10/21/20 13:07) Comprehensive Metabolic Panel (10/21/20 13:07) Fibrin Degradation Products (10/21/20 13:30) BNP (10/21/20 13:45) Fentanyl Injection (Sublimaze Injection (10/21/20 14:00) Iohexol Injection (Omnipaque 350 Mg/Ml 1 (10/21/20 14:15) Received Contrast (Hold Metformin- Contr (10/21/20 14:15) Sodium Chloride Flush (Catheter Flush Sy (10/21/20 14:15) Ns (Ivpb) (Sodium Chloride 0.9% Ivpb Bag (10/21/20 14:15) Ct Maryann Chest/Noang Abd-Pelv W (10/21/20 14:17) Ekg Tracing (10/21/20 14:29) Troponin I (10/21/20 14:29) Potassium Cl 10meq/50ml Ivpb (Kcl 10 Meq (10/21/20 15:15) Potassium Chloride (Tablet) (K Dur Table (10/21/20 15:15) Furosemide Injection (Lasix Injection) (10/21/20 15:15) Ns (Ivpb) (Sodium Chloride 0.9%) (10/21/20 15:15) Medications Given in ED Current Medications Medications Dose Ordered Sig/Kalyn Route Start Time Stop Time Status Last Admin Dose Admin Fentanyl Citrate 50 mcg ONCE ONCE IVP 10/21/20 14:00 10/21/20 14:01 DC 10/21/20 13:56 50 MCG Iohexol 100 ml ONCE ONCE IV 10/21/20 14:15 10/21/20 14:16 DC 10/21/20 14:20 88 ML Sodium Chloride 10 ml NEEDED PRN IV 10/21/20 14:15 10/21/20 14:20 10 ML Sodium Chloride 100 ml ONCE ONCE IV 10/21/20 14:15 10/21/20 14:16 DC 10/21/20 14:20 80 ML Vital Signs/I&O 10/21/20 13:22 Temp 37.5 Pulse 102 Resp 28 B/P (MAP) 168/100 (122) Pulse Ox 96 O2 Delivery Room Air Capillary Refill : Less Than 3 Seconds Blood Pressure Mean: 122 Departure Communication (Admissions) Spoke with Dr. Almanzar, given the negative troponin and the absence of respiratory distress or hypoxia we will discharge to home for further outpatient evaluation. Impression Primary Impression: Recurrent pleural effusion on left Additional Impressions: Adenopathy Dyspnea on exertion Disposition: ADMITTED INPATIENT Condition: Stable Admissions Decision to Admit Reason: Admit from ER (General) Decision to Admit/Date: Oct 21, 2020 Departure-Patient Inst. Decision time for Depature: 15:39 Referrals: ALFREDO LEON MD (PCP/Family) Primary Care Physician Patient Instructions: Shortness of Breath (Dyspnea) (DC) Add. Discharge Instructions: 1. Return to ER for any concerns 2. Take the potassium supplements and the Lasix as directed. Folow up with Dr Leon and Dr Balderrama as directed. All discharge instructions reviewed with patient and/or family. Voiced understanding. Scripts Potassium Chloride (Potassium Chloride) 20 Meq Tablet.er 40 MEQ PO DAILY, #10 TAB Prov: MIRIAM CARL PSYCHOLOGICAL SCIENCE PROFESSOR 10/21/20 Furosemide (Lasix) 20 Mg Tablet 20 MG PO DAILY, #4 TAB Prov: MIRIAM CARL APRN 10/21/20 Copy Copies To 1: NAA BALDERRAMA DO; ALFREDO LEON MD, PETER J APRN Oct 21, 2020 13:43
[2020-10-21 13:52] LABS: BASOPHILS % (AUTO) 0 % (0-10); EOSINOPHILS % (AUTO) 0 % (0-10); HEMATOCRIT 39 % (35-52); HEMOGLOBIN 12.1 g/dL (11.5-16.0); LYMPHOCYTES # (AUTO) 1.3 10^3/uL (1.0-4.0); LYMPHOCYTES % (AUTO) 17 % (12-44); MEAN CORPUSCULAR HEMOGLOBIN 24 pg (25-34); MEAN CORPUSCULAR HGB CONC 31 g/dL (32-36); MEAN CORPUSCULAR VOLUME 76 fL (80-99); MONOCYTES # (AUTO) 0.6 10^3/uL (0.0-1.0); MONOCYTES % (AUTO) 7 % (0-12); NEUTROPHILS # (AUTO) 5.7 10^3/uL (1.8-7.8); NEUTROPHILS % (AUTO) 74 % (42-75); PLATELET COUNT 318 10^3/uL (130-400); WHITE BLOOD COUNT 7.7 10^3/uL (4.3-11.0)
[2020-10-21] MEDS ORDERED: fentaNYL INJECTION 100 MCG/2 ML AMP IVP ONE (14:00)
[2020-10-21 14:01] LABS: ALBUMIN 2.9 GM/DL (3.2-4.5); CHLORIDE 102 MMOL/L (98-107); SODIUM 137 MMOL/L (135-145)
[2020-10-21 14:02] LABS: CALCIUM 8.5 MG/DL (8.5-10.1)
[2020-10-21 14:03] LABS: GLUCOSE 91 MG/DL (70-105); TOTAL PROTEIN 7.8 GM/DL (6.4-8.2)
[2020-10-21 14:04] LABS: CARBON DIOXIDE 24 MMOL/L (21-32)
[2020-10-21 14:05] LABS: BILIRUBIN,TOTAL 0.4 MG/DL (0.1-1.0)
[2020-10-21 14:06] LABS: ALKALINE PHOSPHATASE 121 U/L (40-136)
[2020-10-21 14:07] LABS: CREATININE SERUM 0.75 MG/DL (0.60-1.30); GFR ESTIMATED > 60
--- NOTE | 2020-10-21 14:07 | Consultation - Surgery ---
MELISSA SÁNCHEZ MED STUDENT 10/21/20 1407: History of Present Illness History of Present Illness Patient Consulted On(aurora/time) 10/21/20 13:55 Date Seen by Provider: Oct 21, 2020 Time Seen by Provider: 13:59 History of Present Illness 65 yr old female presents to Dr. Fiore office for appointment, where she was then sent over to the ER for SOB. Pt has recurrent pleural effusions due to unkn own pathology. Previous paracentesis was 2-3 weeks prior. Pt felt less SOB following until 2-3 nights ago when she began becoming SOB again. Pt also c/o left sided posterior thoracic pain described as a dull constant ache, w/o tenderness to palpation. Pt also coughing up clear, foam-like sputum. Pts significant other describes paroxysmal nocturnal dyspnea where she wakes up soaked in sweat. Pt home pulse ox has readings of 92-95 over the past couple days. Pt has multi-decade hx of smoking (since teens). Pt was smoking 1 ppd until her first paracentesis, since then it has been 1 pack per week. Previously prescribed chantix but non compliant. Allergies and Home Medications Allergies Coded Allergies: codeine (Verified Allergy, Intermediate, itching, nausea and vomiting., 01/17/19) morphine (Verified Allergy, Intermediate, itching, nausea and vomiting, 01/17/19) Sulfa (Sulfonamide Antibiotics) (Verified Allergy, Unknown, 01/17/19) Home Medications Acetaminophen 325 Mg Tablet, 650 MG PO Q8H PRN for PAIN-MILD (1-4), (Reported) Amoxicillin/Potassium Clav 1 Each Tablet, 1 EA PO Q12H, (Reported) FILLED 12-06-2019 #14/7 DAY SUPPLY Atorvastatin Calcium 10 Mg Tablet, 10 MG PO DAILY, (Reported) Cephalexin 500 Mg Tablet, 500 MG PO BID Prescribed by: LAWRENCE MATTHEWS on 04/14/20 1155 Dicyclomine HCl 20 Mg Tablet, 20 MG PO DAILY, (Reported) Furosemide 20 Mg Tablet, 20 MG PO DAILY Prescribed by: MIRIAM CARL on 10/21/20 1541 Lisinopril 20 Mg Tablet, 20 MG PO DAILY, (Reported) Magnesium Oxide 400 Mg Tablet, 400 MG PO BID Prescribed by: VIKASH MARIE on 12/12/19 1049 Metoclopramide HCl 5 Mg Tablet, 5 MG PO DAILY, (Reported) Omeprazole 20 Mg Tablet.dr, 20 MG PO DAILY, (Reported) Potassium Chloride 20 Meq Tab.er.prt, 20 MEQ PO BID Prescribed by: VIKASH MARIE on 12/12/19 1049 Potassium Chloride 20 Meq Tablet.er, 40 MEQ PO DAILY Prescribed by: MIRIAM CARL on 10/21/20 1541 Spironolactone 25 Mg Tablet, 25 MG PO DAILY Prescribed by: VIKASH MARIE on 12/12/19 1049 Sucralfate 1 Gm Tablet, 1 GM PO 5XD Prescribed by: LAWRENCE MATTHEWS on 04/14/20 1155 Venlafaxine HCl 150 Mg Cap.er.24h, 150 MG PO DAILY, (Reported) Past Bhpoeiy-Hzzgau-Ynkgnn Hx Patient Social History Smoking Status: Current Everyday Smoker Type Used: Cigarettes 2nd Hand Smoke Exposure: Yes Recent Hopitalizations: No Immunizations Up To Date Date of Pneumonia Vaccine: Oct 12, 2019 Date of Influenza Vaccine: Jun 25, 2019 Seasonal Allergies Seasonal Allergies: No Surgeries History of Surgeries: Yes (knee arth bilat, right shoulder; back) Surgeries: Appendectomy, Gallbladder, Hysterectomy, Orthopedic Respiratory History of Respiratory Disorde: No Cardiovascular History of Cardiac Disorders: Yes (low potassium, low magnesium) Cardiac Disorders: Hypertension Neurological History of Neurological Disord: No Reproductive System Sexually Transmitted Disease: No HIV/AIDS: No Genitourinary History of Genitourinary Disor: No Gastrointestinal History of Gastrointestinal Di: Yes (EPIGASTRIC PAIN, N/V) Musculoskeletal History of Musculoskeletal Dis: No Endocrine History of Endocrine Disorders: No Endocrine Disorders: Diabetes, Non-Insulin dep HEENT History of HEENT Disorders: No (GLASSES) Loss of Vision: Bilateral Hearing Impairment: Denies Cancer History of Cancer: No Psychosocial History of Psychiatric Problem: No Integumentary History of Skin or Integumenta: No Blood Transfusions History of Blood Disorders: No Review of Systems-General Constitutional: No chills; dizziness; No fever; weakness, weight loss (30 lbs over ) EENTM: No blurred vision, No double vision, No throat pain Respiratory: cough, dyspnea on exertion, phlegm, short of breath Cardiovascular: No chest pain, No edema, No palpitations Gastrointestinal: LLQ; No abdominal pain, No constipation, No diarrhea; loss of appetite Genitourinary: No dysuria, No incontinence : No Musculoskeletal: back pain (left thoracic); No muscle pain Skin: No change in color, No change in hair/nails, No pruritus Psychiatric/Neurological: Denies Anxiety, Denies Depressed, Denies Headache, Denies Numbness Physical Exam-General Problems Physical Exam Vital Signs Vital Signs - First Documented 10/21/20 13:22 Temp 37.5 Pulse 102 Resp 28 B/P (MAP) 168/100 (122) Pulse Ox 96 O2 Delivery Room Air Capillary Refill : Less Than 3 Seconds General Appearance: WD/WN, mild distress HEENT: PERRL/EOMI, pharynx normal Neck: non-tender, supple, normal inspection Respiratory: chest non-tender, lungs clear, normal breath sounds; No no respiratory distress; no accessory muscle use, respiratory distress (mild) Cardiovascular: regular rate, rhythm, no gallop, no murmur, other (Clubbing of finger nails) Gastrointestinal: normal bowel sounds, soft, tenderness (LLQ) Rectal: deferred Back: normal inspection, no CVA tenderness, no vertebral tenderness Extremities: non-tender, no pedal edema Neurologic/Psychiatric: alert, normal mood/affect, oriented x 3 Skin: normal color, warm/dry Lymphatic: no adenopathy (cervical, supraclavicular, axilla, groin) Data Review Labs Laboratory Tests 10/21/20 13:44: Assessment/Plan Assessment/Plan Assessment/Plan ASSESSMENT: SOB Pleural effusion Hypokalemia - 3.0 Lymphadenopathy - inaccessible to CT or US guided biopsy AAA - CT confirmed PLAN: Oncology consult - Dr. Plaza Cardiology consult Admit inpatient - diuresis and potassium replacement NAA BALDERRAMA DO 10/22/20 1125: History of Present Illness History of Present Illness Time Seen by Provider: 14:42 History of Present Illness When I saw pt she had just returned from [place]; CTA r/o PE had been done. Her main complaint was SOB, but she was 96% on RA. Allergies and Home Medications Allergies Coded Allergies: codeine (Verified Allergy, Intermediate, itching, nausea and vomiting., 01/17/19) morphine (Verified Allergy, Intermediate, itching, nausea and vomiting, 01/17/19) Sulfa (Sulfonamide Antibiotics) (Verified Allergy, Unknown, 01/17/19) Home Medications Acetaminophen 325 Mg Tablet, 650 MG PO Q8H PRN for PAIN-MILD (1-4), (Reported) Amoxicillin/Potassium Clav 1 Each Tablet, 1 EA PO Q12H, (Reported) FILLED 12-06-2019 #14/7 DAY SUPPLY Atorvastatin Calcium 10 Mg Tablet, 10 MG PO DAILY, (Reported) Cephalexin 500 Mg Tablet, 500 MG PO BID Prescribed by: LAWRENCE MATTHEWS on 04/14/20 1155 Dicyclomine HCl 20 Mg Tablet, 20 MG PO DAILY, (Reported) Furosemide 20 Mg Tablet, 20 MG PO DAILY Prescribed by: MIRIAM CARL on 10/21/20 1541 Lisinopril 20 Mg Tablet, 20 MG PO DAILY, (Reported) Magnesium Oxide 400 Mg Tablet, 400 MG PO BID Prescribed by: VIKASH MARIE on 12/12/19 1049 Metoclopramide HCl 5 Mg Tablet, 5 MG PO DAILY, (Reported) Omeprazole 20 Mg Tablet.dr, 20 MG PO DAILY, (Reported) Potassium Chloride 20 Meq Tab.er.prt, 20 MEQ PO BID Prescribed by: VIKASH MARIE on 12/12/19 1049 Potassium Chloride 20 Meq Tablet.er, 40 MEQ PO DAILY Prescribed by: MIRIAM CARL on 10/21/20 1541 Spironolactone 25 Mg Tablet, 25 MG PO DAILY Prescribed by: VIKASH MARIE on 12/12/19 104 Sucralfate 1 Gm Tablet, 1 GM PO 5XD Prescribed by: LAWRENCE MATTHEWS on 04/14/20 115 Venlafaxine HCl 150 Mg Cap.er.24h, 150 MG PO DAILY, (Reported) Patient Home Medication List Home Medication List Reviewed: Yes Past Rbucisg-Ygrjzx-Xrderr Hx Patient Social History Smoking Status: Current Someday Smoker Surgeries History of Surgeries: Yes (Thoracentesis) Respiratory History of Respiratory Disorde: Yes Family Medical History Significant Family History: Hypertension (father) Review of Systems-General Respiratory: dyspnea on exertion, short of breath Cardiovascular: No chest pain, No palpitations Gastrointestinal: LLQ; No abdominal pain, No constipation, No diarrhea; loss of appetite Physical Exam-General Problems Physical Exam General Appearance: WD/WN, mild distress Eyes: Bilateral Eye PERRL, Bilateral Eye EOMI HEENT: pharynx normal; No scleral icterus (R), No scleral icterus (L) Neck: non-tender, supple Respiratory: chest non-tender, no respiratory distress, decreased breath sounds (Left base), accessory muscle use, crackles (left) Cardiovascular: regular rate, rhythm, no murmur Gastrointestinal: normal bowel sounds, soft, tenderness (LLQ) Data Review Radiology Date of Exam:10/21/20 CT NICKY CHEST/NOANG ABD-PELV W INDICATION: Elevated d-dimer, SOA. Mid abdominal pain. EXAM: CTA chest. CT abdomen and pelvis with contrast. TECHNIQUE: Thin axial sections through the chest, abdomen and pelvis are obtained following intravenous contrast bolus. Multiplanar MIP images were reconstructed and reviewed. All CT scans use one or more of the following dose optimizing techniques: automated exposure control, MA and/or KvP adjustment based on patient size and exam type or iterative reconstruction. COMPARISON: CT chest of 10/06/2020. FINDINGS: CTA chest: No pulmonary emboli. No right ventricular strain or features of pulmonary hypertension. Borderline cardiomegaly is unchanged. Normal caliber thoracic aorta with moderate atherosclerotic plaquing. However, there is no aortic dissection. The large left pleural effusion has diminished since the prior examination. Moderate centrilobular emphysema is again noted. There remains some subpleural wedge-shaped consolidation in the left upper lobe and lingula that are likely due to chronic atelectasis. Improved aeration of the left lower lobe with some residual linear bands present. Thyroid is normal. A few mildly enlarged paratracheal lymph nodes have not changed. The largest is in the right upper paratracheal position measuring 1.3 cm. No enlarged but conspicuous right hilar lymph nodes are unchanged. Enlarged retrocrural/para-aortic lymph nodes are unchanged, with the largest again measuring 1.0 cm. No concerning focal osseous lesions. CT abdomen and pelvis with: No free intraperitoneal air or fluid. Nodular liver is compatible with cirrhosis. No enhancing hepatic masses would be suspicious for hepatocellular carcinoma. Cholecystectomy. The spleen has a stable appearance with heterogeneous micro-nodularity throughout the entirety and some more dominant nodules, largest in the anterior aspect measuring 1.6 cm (previously 1.6 cm). The pancreas enhances normally without mass lesion. Enlarged nate hepatis lymph node measuring 2.6 x 1.6 cm is unchanged and likely due to chronic liver disease. Numerous other smaller right upper quadrant retroperitoneal lymph nodes are also stable. No adrenal mass. No solid renal mass or obstructive uropathy. Urinary bladder is normally filled. Status post hysterectomy. No dilated loops of bowel to indicate bowel obstruction. The stomach is decompressed. Appendix is surgically absent. No enlarged pelvic lymph nodes. Infrarenal fusiform aneurysm measures up to 3.6 cm and has severe atherosclerotic plaquing present but no dissection. No concerning focal osseous lesions. IMPRESSION: 1. No pulmonary emboli or acute aortic syndrome. Infrarenal abdominal aortic aneurysm measuring up to 3.5 cm and has a large amount of atherosclerotic plaquing. 2. The large left pleural effusion has diminished in size. There is improved aeration in left lung base with some scattered areas of residual atelectasis. No features of pneumonia. 3. No acute abnormality in the abdomen or pelvis. 4. Unchanged heterogeneity of the spleen which may be due to neoplastic process such as lymphoma. 5. Cirrhosis with unchanged right upper quadrant/nate hepatis lymph nodes that are highly likely reactive in nature due to chronic liver disease. Dictated by: Dictated on workstation # [id number] Dict: 10/21/20 1435 Trans: 10/21/20 1517 [facility] [id number] Interpreted by: YE MONZON MD Electronically signed by: YE MONZON MD 10/21/20 1517 Assessment/Plan Assessment/Plan Assessment/Plan SOB Pleural effusion Hypokalemia - 3.0 Lymphadenopathy - inaccessible to CT or US guided biopsy AAA - CT confirmed PLAN: Oncology consult - Dr. Plaza Cardiology consult Diuresis may help and she needs potassium replacement Unfortunately, none of the lymph nodes seen on CT are accesible for me to get one for pathology. I went over the CT myself and then went over it with Radiologist (he doesn't see any that he can get a biopsy of; even CT guided). The most likely candidate is one of the mediastinal nodes, but that will require a Thoracic consult. Pleural effusion is not enough to drain today. Supervisory-Addendum Brief Verification & Attestation Participated in pt care: history, MDM, physical Personally performed: exam, history, MDM Care discussed with: Medical Student Procedures: n/a Verification and Attestation of Medical Student E/M Service A medical student performed and documented this service. I then reviewed and verified all information documented by the medical student and made modifications to such information, when appropriate. I personally performed a physical exam, medical decision making and then discussed any differences between the notes and made revisions as necessary to create one note. Naa Balderrama , 10/22/20 , 11:26 MELISSA SÁNCHEZ MED STUDENT Oct 21, 2020 14:07 NAA BALDERRAMA DO Oct 22, 2020 11:25
[2020-10-21 14:08] LABS: BUN/CREATININE RATIO 8
[2020-10-21 14:10] LABS: ALANINE AMINOTRANSFERASE 8 U/L (0-55)
[2020-10-21] MEDS ORDERED: IOHEXOL 350 MG/ML 100 ML (OMNIPAQUE 350) VIAL IV ONE (14:15)
[2020-10-21] MEDS ORDERED: CATHETER FLUSH 10 ML SYR IV PRN (14:15)
[2020-10-21] MEDS ORDERED: NS 100 ML (IVPB) BAG IV ONE (14:15)
[2020-10-21] MEDS ORDERED: HOLD METFORMIN - RECEIVED CONTRAST 20 ML VIAL IV SCH (14:15)
--- NOTE | 2020-10-21 14:36 | Diagnostic Imaging Report ---
INDICATION: Shortness of air. TECHNIQUE: Single-view chest at 2:31 p.m. CORRELATION STUDY: 10/20/2020. FINDINGS: Heart size and mediastinum are stable. A component of vascular congestion is present but overall perhaps slightly more severe. Combination of effusion which may be partially loculated along with consolidation in the left lung base persists, stable. Prior surgical changes of the left humeral head. IMPRESSION: 1. Combination of effusion along with consolidation/infiltrate in the left lung base. Vascular congestion is present but appears slightly more prominent. Dictated by: Dictated on workstation # [id number]
--- NOTE | 2020-10-21 14:54 | Diagnostic Imaging Report ---
INDICATION: Elevated d-dimer, SOA. Mid abdominal pain. EXAM: CTA chest. CT abdomen and pelvis with contrast. TECHNIQUE: Thin axial sections through the chest, abdomen and pelvis are obtained following intravenous contrast bolus. Multiplanar MIP images were reconstructed and reviewed. All CT scans use one or more of the following dose optimizing techniques: automated exposure control, MA and/or KvP adjustment based on patient size and exam type or iterative reconstruction. COMPARISON: CT chest of 10/06/2020. FINDINGS: CTA chest: No pulmonary emboli. No right ventricular strain or features of pulmonary hypertension. Borderline cardiomegaly is unchanged. Normal caliber thoracic aorta with moderate atherosclerotic plaquing. However, there is no aortic dissection. The large left pleural effusion has diminished since the prior examination. Moderate centrilobular emphysema is again noted. There remains some subpleural wedge-shaped consolidation in the left upper lobe and lingula that are likely due to chronic atelectasis. Improved aeration of the left lower lobe with some residual linear bands present. Thyroid is normal. A few mildly enlarged paratracheal lymph nodes have not changed. The largest is in the right upper paratracheal position measuring 1.3 cm. No enlarged but conspicuous right hilar lymph nodes are unchanged. Enlarged retrocrural/para-aortic lymph nodes are unchanged, with the largest again measuring 1.0 cm. No concerning focal osseous lesions. CT abdomen and pelvis with: No free intraperitoneal air or fluid. Nodular liver is compatible with cirrhosis. No enhancing hepatic masses would be suspicious for hepatocellular carcinoma. Cholecystectomy. The spleen has a stable appearance with heterogeneous micro-nodularity throughout the entirety and some more dominant nodules, largest in the anterior aspect measuring 1.6 cm (previously 1.6 cm). The pancreas enhances normally without mass lesion. Enlarged nate hepatis lymph node measuring 2.6 x 1.6 cm is unchanged and likely due to chronic liver disease. Numerous other smaller right upper quadrant retroperitoneal lymph nodes are also stable. No adrenal mass. No solid renal mass or obstructive uropathy. Urinary bladder is normally filled. Status post hysterectomy. No dilated loops of bowel to indicate bowel obstruction. The stomach is decompressed. Appendix is surgically absent. No enlarged pelvic lymph nodes. Infrarenal fusiform aneurysm measures up to 3.6 cm and has severe atherosclerotic plaquing present but no dissection. No concerning focal osseous lesions. IMPRESSION: 1. No pulmonary emboli or acute aortic syndrome. Infrarenal abdominal aortic aneurysm measuring up to 3.5 cm and has a large amount of atherosclerotic plaquing. 2. The large left pleural effusion has diminished in size. There is improved aeration in left lung base with some scattered areas of residual atelectasis. No features of pneumonia. 3. No acute abnormality in the abdomen or pelvis. 4. Unchanged heterogeneity of the spleen which may be due to neoplastic process such as lymphoma. 5. Cirrhosis with unchanged right upper quadrant/nate hepatis lymph nodes that are highly likely reactive in nature due to chronic liver disease. Dictated by: Dictated on workstation # [id number]
[2020-10-21] MEDS ORDERED: KCL 20 MEQ TAB (K-DUR) PO ONE (15:15)
[2020-10-21] MEDS ORDERED: POTASSIUM CL 10MEQ/50ML IVPB 50 ML IV ONE (15:15)
[2020-10-21] MEDS ORDERED: NS (IVPB) 250 ML IV ONE (15:15)
[2020-10-21] MEDS ORDERED: FUROSEMIDE 40 MG/4 ML INJ (LASIX) IVP ONE (15:15)
[2020-10-21] MEDS ORDERED: FURO-125 PO (15:41)
[2020-10-21] MEDS ORDERED: POTA-51 PO (15:41)
[2020-10-21 16:10] VITALS: BP 162/103
== END 2020-10-21 16:10 | disposition home or self-care (01) ==
LOC: EDUNIT# 13:02 → ER 13:04
DX: J90 Pleural effusion, not elsewhere classified (principal); R59.9 Enlarged lymph nodes, unspecified; I10 Essential (primary) hypertension; E11.9 Type 2 diabetes mellitus without complications; E83.42 Hypomagnesemia; E87.6 Hypokalemia; F17.210 Nicotine dependence, cigarettes, uncomplicated; Z88.2 Allergy status to sulfonamides; Z88.5 Allergy status to narcotic agent
CPT/HCPCS: 36415; 71045; 71275; 74177; 80053; 83880; 84484; 85025; 85379; 93005